=== PATIENT | male | born 1945 | race Caucasian/White ===

== ENCOUNTER 2016-10-15 04:39 | Inpatient (IN) ==
[2016-10-15] MEDS ORDERED: *HR* Atropine Sulfate 1 MG/10 ML SYRINGE IVP ONE (05:12)
[2016-10-15 05:22] LABS: Basophils % 0.5 %; Eosinophils # 0.2 K/mcL (0.0-0.6); Eosinophils % 1.9 %; Hematocrit 41.4 % (37.5-50.1); Hemoglobin 14.3 g/dL (12.9-16.9); Immature Granulocytes % 0.5 % (0-4); Lymphocytes # 1.4 K/mcL (0.6-4.6); Mean Corpuscular HGB Conc 34.5 g/dL (31.6-35.5); Mean Corpuscular Hemoglobin 30.8 pg (28.0-33.3); Mean Corpuscular Volume 89.2 fL (83.0-100.0); Mean Platelet Volume 9.8 fL (9.4-12.4); Monocytes # 0.7 K/mcL (0.0-1.3); Monocytes % 9.1 %; Neutrophils # 5.6 K/mcL (1.6-8.9); Platelet Count 211 K/mcL (140-400); Red Blood Count 4.64 M/mcL (4.19-5.50); Red Cell Distribution Width 11.9 % (11.5-14.5)
[2016-10-15 05:27] LABS: INR 1.1; Prothrombin Time 11.9 Seconds (9.4-12.1)
[2016-10-15 05:30] LABS: Activated Partial Thrombo Time 31.6 Seconds (26.0-36.0)
--- NOTE | 2016-10-15 05:33 | Emergency Department Note ---
Disposition Clinical Impression: Bradycardia, Lightheadedness, Palpitations Disposition: Admitted As Inpatient Condition: Critical Referrals: Troy Gracia Jr, MD [Primary Care Provider] - Forms: ED Satisfaction Letter Time of Disposition: 06:31 Dizziness HPI - General Chief Complaint: ED Syncope Stated Complaint: syncope/hypotension/bradycardia/heart skipping Time Seen by Provider: 10/15/16 05:12 Source: patient Mode of arrival: wheelchair Limitations: no limitations Nursing Notes Reviewed: Yes Vital Signs Reviewed: Yes - History of Present Illness HPI Narrative: Mr. Maldonado, 70-year-old male, presents from home via POV with chief complaint of dizziness and lightheadedness. Patient notes his been ongoing for approximately the past month. Associated with mild substernal chest pressure and palpitations. Patient's at bedside notes that he fell 3 weeks ago. Patient states his symptoms occur randomly; both at rest and with activity. He becomes fatigued and lightheaded with light exertion. PMH: Hypertension, hyperlipidemia, CAD with ACS-2 stents placed in 2008. ROS: Positive: Dizziness, weakness, chest pain, palpitations Negative: Fever, chills, nausea, vomiting, back pains, abdominal pains, dyspnea , diaphoresis, confusion - Related Data Allergies Allergy/AdvReac Type Severity Reaction Status Date / Time Diclofenac [From Voltaren] AdvReac Abdominal Verified 10/15/16 04:43 Pain All systems ED: reviewed and negative except as stated. Past Medical History - Past Medical History Medical history: Reports: coronary artery disease, hypertension Surgical history: Reports: herniorrhaphy Psychiatric history: Reports: no psych history - Social History Smoking Status: Former smoker Smokeless Tobacco Status: No Alcohol use: Reports: occasionally Drug use: Reports: none Physical Exam Vital Signs Reviewed General: Patient is alert, oriented, and in no acute distress. HEENT: No facial asymmetry. Head is normocephalic and atraumatic. PERRLA. Trachea midline. Cardiovascular: Heart regular rate and rhythm without clicks, rubs. Split S2. Grade 2/6 systolic murmur. No JVD. PMI nondisplaced. No pedal edema. Respiratory: Symmetric chest rise with good respiratory effort. Bilateral breath sounds are clear without wheezing, crackles, or rhonchi. Abdomen: Bowel sounds present normoactive x-4 quadrants. Abdomen is soft, nondistended, and nontender. Psych: Patient's affect is appropriate for situation. - General Limitations: no limitations General appearance: alert Course Course Narrative: Immediate clinical concern is for symptomatic bradycardia. Patient's heart rate is varying from the 30s to the 70s. Pacing pads placed and atropine placed at bedside. Patient is symptomatic with lightheadedness but his heart rate becomes bradycardic. He has not been syncopal during his stay in the ER. Patient's lab work has returned unremarkable. Specifically normal electrolytes , negative troponin. Chest x-ray is unremarkable. EKG is concerning for left bundle branch block however this is appropriately discordant and unchanged from previous EKG. Spoke with Dr. Kee who advised hold metoprolol, admit to hospitalist, re- evaluate, and re-consult cardiology if needed. Spoke with Dr. Prescott, the admitting hospitalist, who agrees to accept the patient. Vital Signs Temperature 97.6 F 10/15/16 04:43 Pulse Rate 57 10/15/16 04:43 Respiratory Rate 20 10/15/16 04:43 Blood Pressure 166/78 10/15/16 04:43 O2 Sat by Pulse Oximetry 98 10/15/16 04:43 Temperature 97.6 F 10/15/16 04:43 Pulse Rate 59 10/15/16 05:54 Respiratory Rate 16 10/15/16 05:54 Blood Pressure 151/89 10/15/16 05:54 O2 Sat by Pulse Oximetry 96 10/15/16 05:54 Oxygen Delivery Oxygen Delivery Nasal Cannula Dizziness - Medical Records Medical records reviewed: Yes I reviewed the patient's medical records. - Lab Data Lab results reviewed: Yes I reviewed the patient's lab results. Result diagrams: 10/15/16 05:10 10/15/16 05:10 Lab Results 10/15/16 10/15/16 10/15/16 Range/Units 05:10 05:10 05:10 WBC 8.0 (4.3-11.1) K/mcL RBC 4.64 (4.19-5.50) M/mcL Hgb 14.3 (12.9-16.9) g/dL Hct 41.4 (37.5-50.1) % MCV 89.2 (83.0-100.0) fL MCH 30.8 (28.0-33.3) pg MCHC 34.5 (31.6-35.5) g/dL RDW 11.9 (11.5-14.5) % Plt Count 211 (140-400) K/mcL MPV 9.8 (9.4-12.4) fL Immature Gran % 0.5 (0-4) % Seg Neutrophils % 70.0 % Lymphocytes % 18.0 % Monocytes % 9.1 % Eosinophils % 1.9 % Basophils % 0.5 % Neutrophils # 5.6 (1.6-8.9) K/mcL Lymphocytes # 1.4 (0.6-4.6) K/mcL Monocytes # 0.7 (0.0-1.3) K/mcL Eosinophils # 0.2 (0.0-0.6) K/mcL Basophils # 0.0 (0.0-0.2) K/mcL PT 11.9 (9.4-12.1) Seconds INR 1.1 APTT 31.6 (26.0-36.0) Seconds Sodium 135 L (136-145) mEq/L Potassium 4.2 (3.5-4.5) mEq/L Chloride 99 (98-109) mEq/L Carbon Dioxide 27 (19-29) mEq/L BUN 17 (8-26) mg/dL Creatinine 1.06 (0.72-1.25) mg/dL Est GFR ( Amer) > 60 (> 60) Est GFR (Non-Af Amer) > 60 (> 60) BUN/Creatinine Ratio 16 (6-26) Glucose 142 H (70-99) mg/dL Calculated Osmolality 284 (280-300) Calcium 9.8 (8.6-10.8) mg/dL Total Bilirubin 0.8 (0.2-1.2) mg/dL AST 29 (5-34) Units/L ALT 32 (0-55) Units/L Alkaline Phosphatase 79 (38-126) Units/L Troponin I (0-0.03) ng/mL Serum Total Protein 7.6 (6.0-8.3) g/dL Albumin 4.1 (3.5-5.0) g/dL Globulin 3.5 (2.4-3.5) g/dL Albumin/Globulin Ratio 1.2 (1.1-2.2) Urine Color (Yellow) Urine Clarity (Clear) Urine pH (5.0-8.0) pH Units Ur Specific [place] (1.010-1.025) Urine Protein (Neg-Trace) mg/dL Urine Glucose (UA) (Normal) mg/dL Urine Ketones (Negative) mg/dL Urine Blood (Negative) Urine Nitrite (Negative) Urine Bilirubin (Negative) Urine Urobilinogen (Normal) mg/dL Ur Leukocyte Esterase (Negative) 10/15/16 10/15/16 Range/Units 05:10 06:11 WBC (4.3-11.1) K/mcL RBC (4.19-5.50) M/mcL Hgb (12.9-16.9) g/dL Hct (37.5-50.1) % MCV (83.0-100.0) fL MCH (28.0-33.3) pg MCHC (31.6-35.5) g/dL RDW (11.5-14.5) % Plt Count (140-400) K/mcL MPV (9.4-12.4) fL Immature Gran % (0-4) % Seg Neutrophils % % Lymphocytes % % Monocytes % % Eosinophils % % Basophils % % Neutrophils # (1.6-8.9) K/mcL Lymphocytes # (0.6-4.6) K/mcL Monocytes # (0.0-1.3) K/mcL Eosinophils # (0.0-0.6) K/mcL Basophils # (0.0-0.2) K/mcL PT (9.4-12.1) Seconds INR APTT (26.0-36.0) Seconds Sodium (136-145) mEq/L Potassium (3.5-4.5) mEq/L Chloride (98-109) mEq/L Carbon Dioxide (19-29) mEq/L BUN (8-26) mg/dL Creatinine (0.72-1.25) mg/dL Est GFR ( Amer) (> 60) Est GFR (Non-Af Amer) (> 60) BUN/Creatinine Ratio (6-26) Glucose (70-99) mg/dL Calculated Osmolality (280-300) Calcium (8.6-10.8) mg/dL Total Bilirubin (0.2-1.2) mg/dL AST (5-34) Units/L ALT (0-55) Units/L Alkaline Phosphatase (38-126) Units/L Troponin I 0.00 (0-0.03) ng/mL Serum Total Protein (6.0-8.3) g/dL Albumin (3.5-5.0) g/dL Globulin (2.4-3.5) g/dL Albumin/Globulin Ratio (1.1-2.2) Urine Color Yellow (Yellow) Urine Clarity Clear (Clear) Urine pH 7.0 (5.0-8.0) pH Units Ur Specific [place] 1.012 (1.010-1.025) Urine Protein Negative (Neg-Trace) mg/dL Urine Glucose (UA) Normal (Normal) mg/dL Urine Ketones Negative (Negative) mg/dL Urine Blood Negative (Negative) Urine Nitrite Negative (Negative) Urine Bilirubin Negative (Negative) Urine Urobilinogen Normal (Normal) mg/dL Ur Leukocyte Esterase Negative (Negative) - Radiology Data Radiology results reviewed: Yes I reviewed the patient's radiology results. Chest X-Ray 10/15/16 05:01 IMPRESSION: No acute cardiopulmonary disease. D/ / Jules Arora MD / Jules Arora MD Interpreting Provider: Jules Arora MD - EKG Data EKG attestation: Yes I reviewed and interpreted this EKG. EKG results narrative: EKG dated 15 October 2016 at 04:55 shows sinus bradycardia with a rate of 54. First-degree AV block with [place] 228. QRS 88, QT/QTc 513/498. Left bundle branch block which is appropriately discordant and without ST elevations. Unchanged from comparison EKG dated 04/01/2014. Attestation Statement - Attestation Attestation: I personally interviewed and examined this patient and my medical decision- making was reviewed with the ED Resident Physician, Dr. Walters. I agree with the documented findings, disposition and treatment plan as described except to the extent set forth below. Patient is a pleasant 70-year-old white male with a history of near-syncope and lightheadedness. Patient states that he has been having episodes intermittently for the past week and had a syncopal episode a week ago where he fell and was evaluated following this episode by mid-level provider and his family practice doctor's office. Patient states intermittently he has been feeling his heart slowed down and he becomes very lightheaded and weak and if this occurs while he is standing he feels like he may pass out again although he has had no recurrent episodes of syncope. Patient denies any chest pain pressure or heaviness with these symptoms no diaphoresis no shortness of breath no abdominal pain or flank pain. I agree with patient's physical exam is documented. Patient's EKG shows a known left bundle-branch block unchanged from prior EKGs at a bradycardic rate in the 50s. On evaluation patient on the monitor was having intermittent episodes of bradycardia with heart rate in the 30s, during these episodes he becomes very symptomatic with lightheadedness and increased pallor. His heart rate would spontaneously return to the 70s and patient would noticeably feel better during these episodes. His bradycardia has not been sustained while he has been in the ED. He has had a stable blood pressure throughout. We have obtained lab evaluation and chest x-ray on the patient will continue monitoring him. Atropine is at the bedside if needed, patient was placed on pacer pads. Our plan is to admit the patient and speak with cardiology for symptomatic bradycardia and near syncope.
[2016-10-15 05:37] LABS: Alanine Aminotransferase 32 Units/L (0-55); Albumin 4.1 g/dL (3.5-5.0); Albumin/Globulin Ratio 1.2 (1.1-2.2); Alkaline Phosphatase 79 Units/L (38-126); Aspartate Amino Transferase 29 Units/L (5-34); BUN/Creatinine Ratio 16 (6-26); Bilirubin,Total 0.8 mg/dL (0.2-1.2); Blood Urea Nitrogen 17 mg/dL (8-26); Calcium 9.8 mg/dL (8.6-10.8); Carbon Dioxide 27 mEq/L (19-29); Chloride 99 mEq/L (98-109); Globulin 3.5 g/dL (2.4-3.5); Glucose 142 mg/dL (70-99); Osmolality,Calculated 284 (280-300); Potassium 4.2 mEq/L (3.5-4.5); Sodium 135 mEq/L (136-145); Total Protein 7.6 g/dL (6.0-8.3); eGFR For African Americans > 60 (> 60); eGFR For Non-African Americans > 60 (> 60)
[2016-10-15 06:30] LABS: Bilirubin,Urine Negative (Negative); Blood,Urine Negative (Negative); Clarity,Urine Clear (Clear); Color,Urine Yellow (Yellow); Glucose,Urine (UA) Normal (Normal); Ketones,Urine Negative (Negative); Leukocyte Esterase,Urine Negative (Negative); Nitrite,Urine Negative (Negative); Protein,Urine Negative (Neg-Trace); Specific Gravity,Urine 1.012 (1.010-1.025); Urobilinogen,Urine Normal (Normal)
[2016-10-15] MEDS ORDERED: Naloxone 0.4 MG/ML INJ IVP PRN (12:46)
--- NOTE | 2016-10-15 15:18 | Internal Med History&Physical ---
<Darrell Munoz Rashad - Last Filed: 10/15/16 17:53> Date of Encounter: 10/15/16 Time of Encounter: 11:30 Assessment and Plan (1) Lightheadedness Current visit: Yes Status: Acute Assess: Mr. Maldonado presents with chief complaint of dizziness, lightheadedness, and presyncope. Patient reports this has been going on for approximately the past month. Patient also reports approximately 3 weeks ago he passed out completely at home. Mr. Maldonado reports presyncope is accompanied with mild substernal chest pressure and palpitations and occurs randomly at rest and with exertion. Mr. Maldonado states he got up at 3:30 a.m. to use the restroom and when he got back to bed he felt faint. Plan: EV echocardiogram ordered Bilateral carotid Doppler duplex ordered Orthostatic BP and vital signs ordered Continuous cardiac telemetry ordered Continuous SPO2 monitoring ordered Hold Valsartan Hold Amlodipine Hold Lopressor Hold Sildenafil Continue Norvasc Monitor patient and vital signs [place] cautions/bedrest with bathroom privileges/qfcdl-uhvw-buiigr only status to to lightheadedness and presyncopal episodes (2) Bradycardia Current visit: Yes Status: Acute Assess: Patient presents with complaint of palpitations, SOB, and mild substernal chest pressure related to presyncopal episodes. Plan: EV echocardiogram ordered Repeat EKG Continuous cardiac telemetry ordered Continuous SPO2 monitoring ordered Hold Valsartan Hold Amlodipine Hold Lopressor Hold Sildenafil Continue Norvasc Monitor patient and vital signs [place] cautions/bedrest with bathroom privileges/zxgog-adtg-qnoxxn only status to to lightheadedness and presyncopal episodes (3) Palpitations Current visit: Yes Status: Acute Assess: Patient reports having heart palpitations at rest and with exertion as well as fluctuations in BP and pre-syncope/syncope associated with these syptoms. Plan: EV echocardiogram ordered Continuous cardiac telemetry ordered Repeat EKG Continuous SPO2 monitoring ordered Hold Valsartan Hold Amlodipine Hold Lopressor Hold Sildenafil Continue Norvasc Monitor patient and vital signs Falls cautions/bedrest with bathroom privileges/rjheo-pafe-tcuxqf only status to to lightheadedness and presyncopal episodes (4) Falls Current visit: Yes Status: Acute Assess: Patient reports history of repeated falls related to presyncope and syncopal episodes. Plan: SW consult placed to assess for assistive walking devices and home needs PT consult ordered OT consult ordered [place] cautions/bedrest with bathroom privileges/gmyum-gnna-wqxcbt only status to to lightheadedness and presyncopal episodes Qualifiers: Encounter type: initial encounter Qualified Code(s): W19.XXXA - Unspecified fall, initial encounter (5) Hypertension Current visit: Yes Status: Chronic Assess: Patient presents with history of chronic hypertension. Plan: Hold Lopressor, Valsartan, and amlodipine due to orthostatic hypotension Continue Norvasc Hold Seldenafil Monitor patient and vital signs Qualifiers: Hypertension type: essential hypertension Qualified Code(s): I10 - Essential (primary) hypertension (6) CAD (coronary artery disease) Current visit: Yes Status: Chronic Assess: Patient presents with history of chronic coronary artery disease. Patient had placement of 2 stents in 2008. Plan: Continue aspirin therapy Continue Norvasc Lipid panel ordered Cardiac diet ordered Qualifiers: Coronary Disease-Associated Artery/Lesion type: unspecified vessel or lesion type [place] vs. transplanted heart: iro[place]ois heart Associated angina: angina presence unspecified Qualified Code(s): I25.10 - Atherosclerotic heart disease of [place] coronary artery without angina pectoris (7) DVT prophylaxis Current visit: Yes Status: Acute Assess: Patient received DVT prophylaxis to inpatient protocol and bedrest status. Plan: Heparin 5,000 units SQ Q8 ordered Internal Medicine - H&P: HPI Chief complaint: Pre-syncope/dizziness Admitted From: Emergency Dept Plans for Post Hospital Care: Home History of present illness: Mr. Maldonado is a 70 year old male who presents from the ED with chief complaint of dizziness, lightheadedness, and presyncope. Patient reports to smoking going on for approximately the past month. Patient also reports approximately 3 weeks ago he passed out completely at home. Mr. Maldonado reports presyncope is accompanied with mild substernal chest pressure and palpitations and occurs randomly at rest and with exertion. Mr. Maldonado states he got up at 3:30 a.m. to use the restroom and when he got back to bed he felt faint. Patient is currently on valsartan, amlodipine, Lopressor, and Viagra. Mr. Maldonado is a history of chronic hypertension, hyperlipidemia, and coronary artery disease with ACS (2 stents placed in 2008). Patient also reports urinary frequency and urgency.Patient denies fever, chills, nausea, vomiting, back pain, abdominal pain, dyspnea, diaphoresis, confusion, pedal edema. Patient is to be admitted as observation status disorders for EV echocardiogram, bilateral carotid Doppler duplex, orthostatic vital signs and BPs, continuous cardiac telemetry, and continuous SPO2 monitoring. Patient is falls precautions/bedrest with bathroom privileges/up with assist only to recurrent dizziness and presyncopal episodes. Patient to be monitored carefully. Past Med Surg Social Fam HX - Past Medical History Medical history: coronary artery disease, hypertension, myocardial infarction Psychiatric history: no psych history - Past Surgical History Surgical History: herniorrhaphy, other (Placement of two stents in 2008) - Social History Smoking Status: Former smoker Packs per day: 1/2 PPD - quit 40+ years ago Smokeless Tobacco Status: No Alcohol use: occasionally Drug use: none Occupational status: retired Current living situation: Home, With Family Activity Level: Independent ambulation Recent Out of Country Travel Within the Last 8 Weeks: No Exposure or Possible Exposure to Illness During Travel: No - Family History Mother Race: Family Member Ethnicity: Non- Living Status: Age at : 93 Cause of : Breast cancer Hx Family Cardiac Disorders: Yes (CHF) Hx Family Cancer: Yes (Breast) Father Race: Family Member Ethnicity: Non- Living Status: Age at : 73 Cause of : CHF Hx Family Cardiac Disorders: Yes (CHF) Brother Race: Family Member Ethnicity: Non- Living Status: Still Living Hx Family Medical Disorders: No Sister Race: Family Member Ethnicity: Non- Living Status: Still Living Hx Family Medical Disorders: No Internal Medicine - H&P: Meds Aspirin 81 mg PO DAILY 10/15/16 [History] Cyanocobalamin (Vitamin B-12) [Vitamin B-12] 1,000 mcg SL DAILY 10/15/16 [ History] Flaxseed Oil [[place]-3 Flaxseed Oil] 1,000 mg PO DAILY 10/15/16 [History] Glucosamine HCl/Chondr Telles A Na [[facility] Glucosamine-Chondr Tablet] 1 each PO DAILY 10/15/16 [History] LORazepam [Ativan] 1 mg PO HS PRN 10/15/16 [History] Metoprolol [Lopressor] 25 mg PO BID 10/15/16 [History] Mv-Mn/FA/Vit K/Lycop/Lut/Coq10 [Daily Multivitamin Capsule] 1 each PO DAILY 10/26 [History] [place]-3/Dha/Epa/Fish Oil [Fish Oil 1,000 mg Softgel] 1 each PO DAILY 10/15/16 [ History] Potassium 99 mg PO DAILY 10/15/16 [History] Rosuvastatin Calcium [Crestor] 10 mg PO HS 10/15/16 [History] Sildenafil Citrate [Revatio] 20 mg PO DAILY 10/15/16 [History] Valsartan/Hydrochlorothiazide [Diovan Hct 320-12.5 mg Tab] 1 each PO DAILY 10/15 [History] Vitamin E 200 unit PO DAILY 10/15/16 [History] amLODIPine [Norvasc] 5 mg PO DAILY 10/15/16 [History] Allergies Diclofenac [From Voltaren] Adverse Reaction (Verified 10/15/16 10:55) Abdominal Pain All Systems PM: A 10-system review of systems was performed and is negative for pertinent findings except as documented above in the HPI. - Constitutional Constitutional: as per HPI, falls, no chills, no fever(s), no night sweats - EENT Eyes: no change in vision, no discharge, no pain, no photophobia Ears: no ear discharge, no ear pain, no tinnitus Nose, mouth and throat: no dysphagia, no nasal discharge, no neck pain, no sore throat - Breasts Breasts: as per HPI - Cardiovascular Cardiovascular ROS IM: as per HPI, chest pain (Occasional mid-sternal with palpitations), dyspnea, lightheadedness, palpitations, no diaphoresis, no syncope - Respiratory Respiratory: no cough, no dyspnea, no wheezing, no excessive phlegm production - Gastrointestinal Gastrointestinal: no abdominal pain, no diarrhea, no hematemesis, no hematochezia, no melena, no nausea, no vomiting - Genitourinary Genitourinary ROS male: as per HPI, urinary frequency, urinary urgency - Musculoskeletal Musculoskeletal ROS IM: no numbness, no tingling - Integumentary Integumentary IM: no rash, no unusual bruising - Neurological Neurological ROS: no confusion, no convulsions, no focal weakness, no numbness, no tingling, no tremor(s) - Psychiatric Psychiatric: as per HPI - Endocrine Endocrine IM: as per HPI - Hematologic/Lymphatic Hematologic/Lymphatic: no easy bruising - Allergic/Immunologic Allergic/Immunologic: as per HPI - Constitutional Vitals: Temp Pulse Resp BP Pulse Ox 97.6 F 57 16 156/91 97 10/15/16 04:43 10/15/16 07:59 10/15/16 07:56 10/15/16 07:56 10/15/16 07:56 General appearance: Present: cooperative, A&O X 3, pleasant, no acute distress, obese, answers questions appropriately - Head Head exam: Present: atraumatic, normocephalic - Eye Eye exam: Present: PERRL, conjuntiva pink, sclera anicteric Pupils: Present: PERRL - ENT ENT exam: Present: normal exam, normal external ear exam - Neck Neck exam general surgery: Present: supple, trachea midline. Absent: lymphadenopathy - Respiratory Respiratory exam: Present: CTAB. Absent: accessory muscle use, rales, rhonchi, wheezes - Cardiovascular Cardiovascular exam: Present: RRR, +S1, +S2. Absent: diastolic murmur, gallop, rubs, systolic murmur - GI/Abdominal GI/Abdominal exam: Present: normal bowel sounds, soft, no peritoneal signs. Absent: distended, tenderness - Rectal Rectal exam: Present: deferred - Additional comments: exam deferred. - Extremities Exam Extremities exam: Present: warm, radial pulses palpable and symetrical. Absent : calf tenderness, cyanotic, pedal edema - Back Exam Back exam: Present: normal inspection - Neurological Exam Neurological exam: Present: CN II-XII intact, oriented X3, no focal deficits. Absent: pronater drift, facial droop, speech deficit - Psychiatric Psychiatric exam: Present: normal affect, normal mood - Skin Skin exam: Present: dry, intact Internal Med - H&P Results - Labs CBC & Chem 7: 10/15/16 05:10 10/15/16 05:10 Labs: Cardiac Enzymes 10/15/16 Range/Units 13:43 Troponin I 0.00 (0-0.03) ng/mL - EKG Data EKG shows normal: sinus rhythm Rate: bradycardia - EKG Data Prior EKG available for review: no EKG comments: 10/15/16 15:29 EKG dated 10/15/16 shows sinus bradycardia with first-degree AV block, left bundle branch block. - Diagnostic Studies Chest x-ray Additional comments: Impressions Chest X-Ray 10/15/16 05:01 IMPRESSION: No acute cardiopulmonary disease. D/ / 10/15/2016 08:39:48 Jules Arora MD / demetrice Interpreting Provider: Jules Arora MD <Carmen Gaffney - Last Filed: 10/16/16 07:15> Date of Encounter: 10/16/16 Internal Medicine - H&P: HPI History of present illness: Mr. Maldonado is a 70 year old male All Systems PM: A 10-system review of systems was performed and is negative for pertinent findings except as documented above in the HPI. - Constitutional Vitals: Temp Pulse Resp BP Pulse Ox 98.2 F 61 16 143/72 98 10/16/16 04:33 10/16/16 05:15 10/16/16 04:33 10/16/16 05:49 10/16/16 04:33 Internal Med - H&P Results - Labs CBC & Chem 7: 10/16/16 04:11 10/16/16 04:11 Labs: Short CBC 10/16/16 Range/Units 04:11 WBC 8.0 (4.3-11.1) K/mcL Hgb 13.9 (12.9-16.9) g/dL Hct 39.8 (37.5-50.1) % Plt Count 192 (140-400) K/mcL Neutrophils # 5.0 (1.6-8.9) K/mcL BMP 10/16/16 04:11 Sodium 134 L Potassium 3.9 Chloride 101 Carbon Dioxide 27 BUN 12 Creatinine 0.84 Glucose 108 H Calcium 9.1 Cardiac Enzymes 10/15/16 10/15/16 Range/Units 13:43 18:40 Troponin I 0.00 0.00 (0-0.03) ng/mL Liver Function 10/16/16 Range/Units 04:11 Total Bilirubin 0.7 (0.2-1.2) mg/dL AST 23 (5-34) Units/L ALT 28 (0-55) Units/L Alkaline Phosphatase 74 (38-126) Units/L Albumin 3.7 (3.5-5.0) g/dL - Attending Attestation This is a late entry for a patient I examined and reviewed laboratory, imaging and all diagnostic data on 10/15/16. My medical decision-making was reviewed with Darrell Munoz - CORNELL. I agreed with the documented findings, disposition and treatment plan as described above. Mr Maldonado is a 70 year old male with past medical history of HTN, and CAD who presents with a pre-syncope episode at home. He reports a syncopal episode 3 weeks ago. In the ED, patient had a HR of 36 and BP 166/78. He takes lopressor and sildenafil. During my examination, patient was asymptomatic, chest CTAB, heart regular rate. CXR was negative. EKG reviewed by me and shows sinus bradycardia Hr 54. A/P: 1. Symptomatic bradycardia. check echocardiogram, serial troponins, doppler of carotids was negative, telemetry. hold metoprolol. 2. HTN. continue amlodipine. hold valsartan. Patient follows with dr Russell, consider consult or outpatient follow up.
[2016-10-15] MEDS ORDERED: Aspirin 81 MG TAB.CHEW ONE (17:05)
[2016-10-15] MEDS: amLODIPine 5 MG TABLET PO SCH (17:43)
[2016-10-15] MEDS: *HR* Heparin 5,000 UNIT/ML VIAL SQ SCH (21:42)
--- NOTE | 2016-10-16 00:07 | Electrocardiograph Report ---
[address] [address] Test Date: 2016-10-15 Pat Name: Franck Maldonado Department: 104 Room: 2N13 Gender: M Admitting Office Escort: SANCHEZ : 1945 Requested By: Natasha Bautista Order Number: [id number] Reading MD: Amber Russell Measurements Intervals [place] Rate: 54 P: 4 [place]: 228 QRS: -8 QRSD: 188 T: 75 QT: 513 QTc: 498 Interpretive Statements SINUS BRADYCARDIA WITH FIRST DEGREE AV BLOCK LEFT BUNDLE BRANCH BLOCK Electronically Signed On 10-16-2016 0:05:39 EDT by Amber Russell
[2016-10-16 05:29] LABS: Basophils % 0.5 %; Eosinophils # 0.1 K/mcL (0.0-0.6); Eosinophils % 1.6 %; Hematocrit 39.8 % (37.5-50.1); Hemoglobin 13.9 g/dL (12.9-16.9); Immature Granulocytes % 0.4 % (0-4); Lymphocytes % 24.6 %; Mean Corpuscular HGB Conc 34.9 g/dL (31.6-35.5); Mean Corpuscular Hemoglobin 31.4 pg (28.0-33.3); Mean Platelet Volume 10.7 fL (9.4-12.4); Monocytes # 0.9 K/mcL (0.0-1.3); Monocytes % 10.9 %; Platelet Count 192 K/mcL (140-400); Red Blood Count 4.42 M/mcL (4.19-5.50); Red Cell Distribution Width 11.9 % (11.5-14.5)
[2016-10-16] MEDS: *HR* Heparin 5,000 UNIT/ML VIAL SQ SCH ×3 (05:35→20:53)
[2016-10-16 05:43] LABS: Alanine Aminotransferase 28 Units/L (0-55); Albumin 3.7 g/dL (3.5-5.0); Albumin/Globulin Ratio 1.2 (1.1-2.2); Alkaline Phosphatase 74 Units/L (38-126); Aspartate Amino Transferase 23 Units/L (5-34); BUN/Creatinine Ratio 14 (6-26); Bilirubin,Total 0.7 mg/dL (0.2-1.2); Blood Urea Nitrogen 12 mg/dL (8-26); Calcium 9.1 mg/dL (8.6-10.8); Carbon Dioxide 27 mEq/L (19-29); Chloride 101 mEq/L (98-109); Chol/HDL Ratio 3.3 (0-4.9); Cholesterol 144 mg/dL (< 200); Globulin 3.1 g/dL (2.4-3.5); Glucose 108 mg/dL (70-99); HDL Cholesterol 44 mg/dL (40-59); LDL Cholesterol,Calculated 70 mg/dL (0-99); Magnesium 1.7 mg/dL (1.6-2.6); Osmolality,Calculated 278 (280-300); Potassium 3.9 mEq/L (3.5-4.5); Sodium 134 mEq/L (136-145); Total Protein 6.8 g/dL (6.0-8.3); Triglycerides 152 mg/dL (< 150); eGFR For African Americans > 60 (> 60); eGFR For Non-African Americans > 60 (> 60)
[2016-10-16] MEDS: Aspirin 81 MG TAB.CHEW PO SCH (07:37)
[2016-10-16] MEDS: amLODIPine 5 MG TABLET PO SCH (07:37)
--- NOTE | 2016-10-16 12:43 | Cardiology Consult Note ---
Date of Encounter: 10/16/16 Time of Encounter: 12:43 Assessment and Plan (1) Mobitz type 2 second degree AV block Current Visit: Yes Status: Acute Pt presented with dizziness, lightheadedness, presyncope and episode of syncope 3 weeks ago. HR reported to be 30s in ED, lowest HR on tele is 40s. Was on Lopressor 25mg BID at home, currently on hold. 24 hour tele AVG HR 61. HR 70s at bedside--Continue to hold. Intermittent Mobitz type II heart block noted on telemetry. Echo EF 55%. Hx of PCI in 2008 to RCA and LCx. Negative stress in 2013. Pt reports for the past month chest pain that is mostly exertional, similar to prior anginal equivalent. Discussed with Dr. Kee, plan for LHC in AM. If no explainable cause on LHC, then PPM will likely be warranted due to the intermittent Mobitz type II. (2) Symptomatic bradycardia Current Visit: Yes Status: Acute As above. Avoiding AV garland blockers. (3) Chest pain Current Visit: Yes Status: Acute Chest pain intermittently over the past month--mostly occurs with exertion, relieved with rest, but occasionally occurs during sleep. Reports worsening dyspnea. Symptoms similar to prior anginal equivalent, but could also be due to symptomatic bradycardia. Troponins negative x 3. LBBB on EKG--known previously, not new. Given in setting of intermittent Mobitz type II, symptomatic bradycardia and symptoms similar to prior anginal equivalent, recommend LHC in AM. R/B/A discussed. Qualifiers: Chest pain type: unspecified Qualified Code(s): R07.9 - Chest pain, unspecified (4) CAD (coronary artery disease) Current Visit: Yes Status: Chronic Hx of PCI to RCA and LCx in 2008 at outside facility. ASA, Statin. No BB due to bradycardia and Mobitz type II heart block. Qualifiers: Coronary Disease-Associated Artery/Lesion type: unspecified vessel or lesion type [place] vs. transplanted heart: [place] heart Associated angina: angina presence unspecified Qualified Code(s): I25.10 - Atherosclerotic heart disease of [place] coronary artery without angina pectoris Discussion w patient/family: The assessment and plan as outlined above was discussed with the patient and/or family members who expressed understanding and agreement. All questions were answered. Thank you for involving us in the care of your patient. Please call with any questions. I will discuss all the above with Dr. Kee and make changes as necessary. History of Present Illness Consult date: 10/16/16 Requesting physician: Carmen Gaffney Consult reason: Presyncope, syncope Chief complaint: presyncope, syncope History of present illness: Mr. Maldonado is a 70 year old male with PMH of CAD s/p PCI to RCA and LCx in 2008, HTN, HLD, known LBBB that presented to ED with chief complaint of dizziness, lightheadedness, and presyncope. Patient reports symptoms started approximately 1 month ago. He had a syncopal event 3 weeks ago when going from sitting to standing position. He reports mostly exertional chest pain over the past month, described as midsternal and dull with occasional radiation to right arm, subsides with rest. He reports chest pain occasionally through the night as well. He has noticed increased dyspnea. Symptoms are similar to prior anginal equivalent. Troponins negative x 3. HR reportedly noted to be 30s in ED, lowest HR on tele is 40s, currently 70s at bedside. Was on Lopressor, Norvasc, and Diovan at home, all which have been discontinued on admission. Orthostatic blood pressures negative. HR decreased to 40s upon standing. 24 hour tele AVG HR 61, longest pause 2.2 seconds. Echo obtained during stay shows EF 55%, moderate concentric LVH, mild diastolic dysfunction, dilated RV with normal function, mild MR, mild TR, mild-moderate CA , no pulmonary hypertension noted. Stress test 04/08/14 negative for ischemia or infarct. Past Med Surg Social Fam HX - Past Medical History Medical history: coronary artery disease, hypertension, myocardial infarction Psychiatric history: no psych history - Past Surgical History Surgical History: angioplasty/stent, herniorrhaphy, other (Placement of two stents in 2008) - Social History Smoking Status: Former smoker Packs per day: 1/2 PPD - quit 40+ years ago Smokeless Tobacco Status: No Alcohol use: occasionally Drug use: none - Family History Mother Race: Family Member Ethnicity: Non- Living Status: Age at : 93 Cause of : Breast cancer Hx Family Cardiac Disorders: Yes (CHF) Hx Family Cancer: Yes (Breast) Father Race: Family Member Ethnicity: Non- Living Status: Age at : 73 Cause of : CHF Hx Family Cardiac Disorders: Yes (CHF) Brother Race: Family Member Ethnicity: Non- Living Status: Still Living Hx Family Medical Disorders: No Sister Race: Family Member Ethnicity: Non- Living Status: Still Living Hx Family Medical Disorders: No Medications and Allergies Aspirin 81 mg PO DAILY 10/15/16 [History] Cyanocobalamin (Vitamin B-12) [Vitamin B-12] 1,000 mcg SL DAILY 10/15/16 [ History] Flaxseed Oil [[place]-3 Flaxseed Oil] 1,000 mg PO DAILY 10/15/16 [History] Glucosamine HCl/Chondr Telles A Na [Cvs Glucosamine-Chondr Tablet] 1 each PO DAILY 10/15/16 [History] LORazepam [Ativan] 1 mg PO HS PRN 10/15/16 [History] Metoprolol [Lopressor] 25 mg PO BID 10/15/16 [History] Mv-Mn/FA/Vit K/Lycop/Lut/Coq10 [Daily Multivitamin Capsule] 1 each PO DAILY 10/26 [History] [place]-3/Dha/Epa/Fish Oil [Fish Oil 1,000 mg Softgel] 1 each PO DAILY 10/15/16 [ History] Potassium 99 mg PO DAILY 10/15/16 [History] Rosuvastatin Calcium [Crestor] 10 mg PO HS 10/15/16 [History] Sildenafil Citrate [Revatio] 20 mg PO DAILY 10/15/16 [History] Valsartan/Hydrochlorothiazide [Diovan Hct 320-12.5 mg Tab] 1 each PO DAILY 10/15 [History] Vitamin E 200 unit PO DAILY 10/15/16 [History] amLODIPine [Norvasc] 5 mg PO DAILY 10/15/16 [History] Allergies Diclofenac [From Voltaren] Adverse Reaction (Verified 10/15/16 10:55) Abdominal Pain All Systems Review: A 10-system review of systems was performed and is negative for pertinent findings except as documented above in the HPI. - Cardiovascular Cardiovascular: as per HPI, chest pain at rest, chest pain with exertion, dyspnea on exertion, lightheadedness, palpitations, syncope - Respiratory Respiratory: dyspnea - Neurological Neurological: dizziness, syncope Physical Examination Vital Signs, Last 4 Hours Pulse Resp BP Pulse Ox 10/16/16 11:15 70 14 147/82 96 10/16/16 10:57 67 Vital Signs Temp Pulse Pulse Pulse Pulse Resp BP 10/16/16 11:15 70 14 147/82 10/16/16 10:57 67 10/16/16 08:00 97.6 F 60 57 64 44 14 145/82 10/16/16 07:35 66 17 145/82 10/16/16 05:49 10/16/16 05:15 61 10/16/16 04:33 98.2 F 70 16 10/16/16 00:55 56 10/15/16 23:40 98.2 F 65 15 113/70 10/15/16 22:37 10/15/16 22:35 10/15/16 22:32 10/15/16 20:29 98.1 F 62 15 131/70 10/15/16 20:15 55 10/15/16 15:20 97.9 F 60 14 134/75 BP BP BP Pulse Ox 10/16/16 11:15 96 10/16/16 10:57 10/16/16 08:00 155/86 160/96 152/78 96 10/16/16 07:35 97 10/16/16 05:49 143/72 10/16/16 05:15 10/16/16 04:33 98 10/16/16 00:55 10/15/16 23:40 95 10/15/16 22:37 136/81 10/15/16 22:35 155/76 10/15/16 22:32 134/77 10/15/16 20:29 96 10/15/16 20:15 10/15/16 15:20 97 Intake and Output 10/15/16 10/16/16 10/16/16 23:59 07:59 15:59 Intake Total 0 / 0 480 / 480 Output Total 500 / 500 1125 / 1125 0 / 0 Balance -500 / -500 -1125 / -1125 480 / 480 Intake: Oral 0 / 0 480 / 480 Output: Urine 500 / 500 1125 / 1125 0 / 0 Other: Meal Breakfast Percent of Meal Consumed 100% Weight 93.468 kg Patient Weight 10/16/16 23:59 Weight 93.468 kg General: Conversant, No Apparent Distress HEENT: Atraumatic, Normocephaly, Mucus Membranes Moist Neck: No JVD, Normal carotid pulses Cardiac: Reg Rate and Rhythm, Normal S1 and S2, No Murmur Lungs: Normal Breath Sounds, No Wheeze, Rales, Rhonchi Neuro: Alert and responsive, No focal deficits noted Abdomen: Soft, Non-Tender Skin: No rashes noted on visualized skin Musculoskeletal: No Chest Wall Tenderness Extremities: No Clubbing, No Cyanosis, No Edema, Normal Pulses Results 10/16/16 04:11 10/16/16 04:11 Lab Results 10/15/16 10/15/16 10/16/16 13:43 18:40 04:11 WBC 8.0 Hgb 13.9 Hct 39.8 Plt Count 192 Sodium Potassium Chloride Carbon Dioxide BUN Creatinine Glucose Calcium Magnesium Total Bilirubin AST ALT Alkaline Phosphatase Troponin I 0.00 0.00 10/16/16 04:11 WBC Hgb Hct Plt Count Sodium 134 L Potassium 3.9 Chloride 101 Carbon Dioxide 27 BUN 12 Creatinine 0.84 Glucose 108 H Calcium 9.1 Magnesium 1.7 Total Bilirubin 0.7 AST 23 ALT 28 Alkaline Phosphatase 74 Troponin I Short CBC 10/16/16 Range/Units 04:11 WBC 8.0 (4.3-11.1) K/mcL Hgb 13.9 (12.9-16.9) g/dL Hct 39.8 (37.5-50.1) % Plt Count 192 (140-400) K/mcL Neutrophils # 5.0 (1.6-8.9) K/mcL BMP 10/16/16 Range/Units 04:11 Sodium 134 L (136-145) mEq/L Potassium 3.9 (3.5-4.5) mEq/L Chloride 101 (98-109) mEq/L Carbon Dioxide 27 (19-29) mEq/L BUN 12 (8-26) mg/dL Creatinine 0.84 (0.72-1.25) mg/dL Glucose 108 H (70-99) mg/dL Calcium 9.1 (8.6-10.8) mg/dL Cardiac Enzymes 10/15/16 10/15/16 Range/Units 18:40 13:43 Troponin I 0.00 0.00 (0-0.03) ng/mL Liver Function 10/16/16 Range/Units 04:11 Total Bilirubin 0.7 (0.2-1.2) mg/dL AST 23 (5-34) Units/L ALT 28 (0-55) Units/L Alkaline Phosphatase 74 (38-126) Units/L Albumin 3.7 (3.5-5.0) g/dL Impressions Chest X-Ray 10/15/16 05:01 IMPRESSION: No acute cardiopulmonary disease. D/ / 10/15/2016 08:39:48 Jules Arora MD / [facility] Interpreting Provider: Jules Arora MD Active Medications Amlodipine Besylate (Norvasc) 5 mg PO DAILY IMANI PRN Reason: Protocol Stop: 04/16/17 17:16 Last Admin: 10/16/16 07:37 Dose: 5 mg Aspirin (Aspirin) 81 mg PO DAILY IMANI Stop: 04/17/17 09:01 Last Admin: 10/16/16 07:37 Dose: 81 mg Heparin Sodium (Porcine) (Heparin) 5,000 unit SQ Q8HCO IMANI Stop: 04/16/17 22:01 Last Admin: 10/16/16 05:35 Dose: 5,000 unit Lorazepam (Ativan) 0.5 mg PO HS PRN PRN Reason: Insomnia Stop: 04/16/17 12:42 Naloxone HCl (Narcan) 0.4 mg IVP Q2MIN PRN PRN Reason: Opioid Reversal Stop: 04/16/17 12:47 Rosuvastatin Calcium (Crestor) 10 mg PO HS [facility] Stop: 04/17/17 21:01 - Imaging and Cardiology Stress Test: report reviewed Echo: report reviewed - EKG Interpretation EKG results cardiology: personally reviewed (Sinus max with 1st degree block, LBBB), left bundle branch block, other (24 hour tele AVG HR 61, SR, longest pause 2.2 seconds nocturnal) Consult Discharge Plan - Plan Referrals: Aparna Dawson [facility] [Advanced Practice Nurse] - 10/25/16 10:00 am
[2016-10-16] MEDS: Valsartan 160 MG TABLET PO SCH (15:47)
--- NOTE | 2016-10-16 16:04 | Internal Med Progress Note ---
Date of Encounter: 10/16/16 Time of Encounter: 10:30 - Assessment and plan (1) Mobitz type 2 second degree AV block Current Visit: Yes Status: Acute Assessment and plan: HR now ~ 70, improved BB on hold, cardiology following, [facility] in am (2) Symptomatic bradycardia Current Visit: Yes Status: Acute Assessment and plan: avoid AV garland blockers (3) CAD (coronary artery disease) Current Visit: Yes Status: Chronic Assessment and plan: Hx of PCI to RCA and LCx in 2008 at outside facility. ASA, Statin. No BB due to bradycardia and Mobitz type II heart block. Qualifiers: Coronary Disease-Associated Artery/Lesion type: unspecified vessel or lesion type [place] vs. transplanted heart: [place] heart Associated angina: angina presence unspecified Qualified Code(s): I25.10 - Atherosclerotic heart disease of [place] coronary artery without angina pectoris (4) Hypertension Current Visit: Yes Status: Chronic Assessment and plan: controlled, continue valsartan Qualifiers: Hypertension type: essential hypertension Qualified Code(s): I10 - Essential (primary) hypertension (5) DVT prophylaxis Current Visit: Yes Status: Acute Assessment and plan: heparin sc - Time Spent With Patient less than 15 minutes - Subjective Interval history: Patient awake and alert. Not in any distress. Feels better. Denies chest pain or shortness of breath. HR has now improved. [facility] scheduled for tmorrow. No other acute events or complaints. - Constitutional Vitals: Temp Pulse Resp BP Pulse Ox 98.2 F 72 15 143/79 97 10/16/16 15:40 10/16/16 15:40 10/16/16 15:40 10/16/16 15:40 10/16/16 15:40 General appearance: Present: cooperative, A&O X 3, pleasant, no acute distress, answers questions appropriately - Head Head exam: Present: atraumatic - Neck Neck exam general surgery: Present: supple - Respiratory Respiratory exam: Present: CTAB. Absent: rhonchi, wheezes - Cardiovascular Cardiovascular exam: Present: bradycardia, +S1, +S2 - GI/Abdominal GI/Abdominal exam: Present: soft. Absent: guarding, tenderness - Extremities Exam Extremities exam: Present: radial pulses palpable and symetrical. Absent: cyanotic, pedal edema - Neurological Exam Neurological exam: Present: alert, oriented X3, no focal deficits Internal Medicine: Result - Labs CBC & Chem 7: 10/16/16 04:11 10/16/16 04:11 Labs: Short CBC 10/16/16 Range/Units 04:11 WBC 8.0 (4.3-11.1) K/mcL Hgb 13.9 (12.9-16.9) g/dL Hct 39.8 (37.5-50.1) % Plt Count 192 (140-400) K/mcL Neutrophils # 5.0 (1.6-8.9) K/mcL BMP 10/16/16 04:11 Sodium 134 L Potassium 3.9 Chloride 101 Carbon Dioxide 27 BUN 12 Creatinine 0.84 Glucose 108 H Calcium 9.1 Cardiac Enzymes 10/15/16 Range/Units 18:40 Troponin I 0.00 (0-0.03) ng/mL Liver Function 10/16/16 Range/Units 04:11 Total Bilirubin 0.7 (0.2-1.2) mg/dL AST 23 (5-34) Units/L ALT 28 (0-55) Units/L Alkaline Phosphatase 74 (38-126) Units/L Albumin 3.7 (3.5-5.0) g/dL - ABG Interpretation ABG results: PT/INR, D-dimer PT 11.9 Seconds (9.4-12.1) 10/15/16 05:10 Consult Discharge Plan - Plan Referrals: Aparna Dawson [facility] [Advanced Practice Nurse] - 10/25/16 10:00 am
[2016-10-16] MEDS ORDERED: *HR* Heparin 5,000 UNIT/ML VIAL SQ SCH (18:00)
--- NOTE | 2016-10-16 18:41 | Carotid Imaging Report ---
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 Findings Carotid Duplex: Right: There is nonstenotic plaque in the right bifurcation. There is smooth heterogeneous plaque. There is nonstenotic plaque in the right proximal internal carotid artery. There is smooth heterogeneous plaque. Left: There is nonstenotic plaque in the left bifurcation. There is smooth heterogeneous plaque. There is nonstenotic plaque in the left proximal internal carotid artery. There is smooth heterogeneous plaque. Prior Study: No prior study available for comparison. Carotid Results Right PSV EDV Assessment Proximal CCA 112 11 Normal Mid CCA 80 13 Normal Distal CCA 62 8 Normal Bifurcation 61 12 Non Stenotic Plaque Proximal ICA 69 19 Non Stenotic Plaque Mid ICA 73 22 Normal Distal ICA 74 27 Normal ECA 131 7 Normal Vertebral Artery 42 13 Antegrade Flow Left PSV EDV Assessment Proximal CCA 88 9 Normal Mid CCA 66 14 Normal Distal CCA 81 19 Normal Bifurcation 80 18 Non Stenotic Plaque Proximal ICA 60 15 Non Stenotic Plaque Mid ICA 62 24 Normal Distal ICA 56 20 Normal ECA 93 13 Normal Vertebral Artery 49 15 Antegrade Flow Ratio's Right ICA/CCA Ratio: 0.92 ICA/CCA Values: 74/80 Left ICA/CCA Ratio: 0.93 ICA/CCA Values: 62/66 Updated by Eriberto Olson MD on 10/16/2016 6:33:53 PM electronically signed on 10/16/2016 6:34:20 PM with status of Final
[2016-10-17 01:47] LABS: Thyroid Stimulating Hormone 1.044 mcIU/mL (0.350-4.840)
[2016-10-17] MEDS: *HR* Heparin 5,000 UNIT/ML VIAL SQ SCH ×3 (05:53→21:09)
[2016-10-17] MEDS: amLODIPine 5 MG TABLET PO SCH (07:23)
[2016-10-17] MEDS: Valsartan 160 MG TABLET PO SCH (07:23)
[2016-10-17] MEDS: Aspirin 81 MG TAB.CHEW PO SCH (07:23)
--- NOTE | 2016-10-17 08:58 | Event Note ---
Date of Encounter: 10/17/16 Time of Encounter: 08:00 - Cardiology Event Note Seen and examined. He has no complaints upon exam this morning. Labs and vital signs are stable. Telemetry review: avg HR-60, continues to have episodes of 2:1 AVB overnight. ECG upon arrival: HR 54 SR w/LBBB (known) QRS 188 ms QT/QTc 513,498 ms. Lopressor has been held since admission. Plan for LHC today to rule out ischemic etiology; possible PPM later this afternoon depending on LHC findings. Alternatives, risks, and benefits of each procedure discussed; he is agreeable to proceed. Consents for both LHC and possible PPM obtained this AM. Further recommendations to follow. The patient will be discussed and reviewed with Dr. Kee; changes to be made accordingly.
--- NOTE | 2016-10-17 09:21 | Electrocardiograph Report ---
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
--- NOTE | 2016-10-17 11:30 | Pre-Sedation Evaluation ---
Pre-sedation evaluation - Pre-sedation checklist Date of procedure: 10/17/16 Procedure: [facility] Recent Vitals: Last Vital Signs Temp 97.7 F 10/17/16 07:20 Pulse 69 10/17/16 07:20 Resp 17 10/17/16 07:20 BP 116/83 10/17/16 07:20 Pulse Ox 95 10/17/16 07:20 H&P (including ROS) documented in medical record: Yes Previous reaction to sedatives/anesthetics: No Dietary Status: NPO after Midnight Dentition: No loose teeth or bridges ASA Classification *see protocol: CLASS II-Mild systemic disease Plan of Care: Pt appropriate candidate for procedure/moderate/conscious sedation , Risks/benefits of procedure/sedation discussed w/ patient/family
[2016-10-17] MEDS ORDERED: 0.9 % Sodium Chloride 1,000 ML ONE ×2 (12:34→13:00)
[2016-10-17] MEDS ORDERED: Verapamil 5 MG/2 ML VIAL ONE (12:34)
[2016-10-17] MEDS ORDERED: Nitroglycerin 1,000 MCG/10 ML VIAL IV ONE (12:35)
[2016-10-17] MEDS ORDERED: Heparin 1,000 UNITS/500 mL NS 500 ML ONE (12:35)
[2016-10-17] MEDS ORDERED: *HR* Heparin 10,000 UNIT/10 ML VIAL ONE (12:35)
[2016-10-17] MEDS ORDERED: *HR* FentaNYL (PF) 100 MCG/2 ML VIAL ONE (13:03)
[2016-10-17] MEDS ORDERED: *HR* Midazolam HCl 2 MG/2 ML VIAL ONE (13:03)
--- NOTE | 2016-10-17 14:21 | Invasive Diagnostic Lab Proc ---
Name: Franck Maldonado Date of Study: 10/17/2016 Date: 1945 Ht: 74.0in Medical Record#: [id number] Age: 70 Wt: 207.68lb Gender: Male BSA: 2.21 Order #: [id number] BMI: 26.65 Physicians Procedure Physician: Kishore Ricardo MD, [facility] Referring MD: Referring MD: Staff Name Position Time In Eliza Finley RN Rug Drying Machine Operator 01:05 PM Angela Anglin RN Scrub 01:05 PM Teresa Magaña RT (R) Monitor 01:05 PM Eleanor Reyes RT Rug Drying Machine Operator 02:04 PM Procedures Performed Procedure L HRT ARTERY/VENTRICLE ANGIO Pre-Procedure Checklist Informed consent is complete signed and on chart. H\\T\\P is on chart. ID band is on and ID verified with patient. Patient NPO for procedure The procedure was described for the patient and questions were answered. Blood Pressure: 116/83 ECG is on chart. Plan of Care Patient will tolerate the procedure without complications. Adequate level of comfort will be maintained. Hemodynamics will remain stable Patient will recover from procedure without complications. Respiratory function will be maintained. Cardiac rhythm will remain stable. Patient temperature will be maintained. Patient and/or family have verbalized understanding of the procedure. Patient Education Chief Complaint/Reason for Test: Cardiac Cath Developmental Category: Geriatric (65+ years) Developmentally Appropriate for Age: Yes Learning Barriers: None Education Needs: Procedure Education Method: Verbal Information Taught: Cardiac Cath Educational Evaluation: Able to repeat information Intravenous Access Time IV Size Location DC'd Fluid/Drip Rate Units RN 18g 1 05/15" Patent On Arrival Rt Antecubital 0.9NaCl Allergies Diclofenac SEASONAL Vital Signs Time BP (mmHg) HR (bpm) O2 Sat. RR (bpm) LOC 116 / 83 64 95 % 17 01:05 PM / % 5 = Fully awake and oriented or at pre-proc level 01:05 PM / % 5 = Fully awake and oriented or at pre-proc level 01:31 PM 183 / 83 45 97 % 20 01:35 PM 150 / 76 127 97 % 2 01:40 PM 167 / 78 50 97 % 20 01:44 PM 140 / 67 52 93 % 2 01:50 PM 143 / 67 48 94 % 15 01:54 PM 142 / 71 46 93 % 11 01:59 PM 138 / 70 44 94 % 14 Procedural Medications Time Medication Dose Units Method Given By 01:22 PM Oxygen 2 L/min nasal cannula Eliza Finley RN 01:29 PM Versed 2 mg Intravenous Eliza Finley RN 01:29 PM Fentanyl 25 mcg Intravenous Eliza Finley RN 01:37 PM Lidocaine 2% 0.5 ml Subcutaneous Kishore Ricardo MD, [facility] 01:40 PM Heparin 4000 units Nitroglycerin 200 mcg Verapamil 2.5 mg Intraarterial Kishore Ricardo MD, [facility] ASA Classification: CLASS II- Mild systemic disease (i.e. well-controlled diabetes, hypertension, asthma, cigarette smoking) Jose Guadalupe Score Preprocedure Postprocedure Activity 2- Moves 4 extremities sustained head lift Activity Circulation 2- SBP +/= 20 points of pre-anesthetic level Circulation Consciousness 2- Awake and alert oriented x 3 Consciousness O2 Saturation 2- Able to maintain O2 satruation of 92% on room air O2 Saturation Respiratory 2- Able to deep breathe and cough well Respiratory Total Score 10 Total Score Contrast Agent: Isovue Diagnostic Contrast: 92 ml Total Contrast: 92 ml Fluoro Dose: 388 mGy Procedure Log Time Note Enter By 01:05 PM Pt arrived to freezer laboratory technician 2 at 13:04 scoates 01:05 PM Eliza Finley RN Position: Rug Drying Machine Operator Time in: 13:05 scoates 01:05 PM Angela Anglin RN Position: Scrub Time in: 13:05 scoates 01:05 PM Teresa Magaña RT (R) Position: Monitor Time in: 13:05 scoates 01:05 PM Patient charges- Angio tray pack, Navilyst 3mm J, Pulse Oximetry and ACIST tubing and transducer scoates 01:05 PM IV Supplies used: J loop Angio Cath. scoates 01:05 PM Time: 13:05 Patient comfortable and pain free: Yes scoates 01:05 PM Time: 13:05LOC: 5 = Fully awake and oriented or at pre-proc level scoates 01:06 PM Clinical Presentation: Unstable angina scoates 01:22 PM CathStat 01:22 PM Case Start 01:22 PM Time: 13:05LOC: 5 = Fully awake and oriented or at pre-proc level scoates 01:22 PM Time: 13:05 Patient comfortable and pain free: Yes scoates 01:22 PM Physician arrived 13:22 scoates : PM ASA Class CLASS II- Mild systemic disease (i.e. well-controlled diabetes, hypertension, asthma, cigarette smoking) scoates : PM Meet and greet completed scoates : PM Sign in performed according to hospital policy. scoates : PM Procedure start 13:22 scoates : PM Time: 13: Oxygen on at 2 L/min per nasal cannula by Eliza Finley RN scoates : PM Hair removed from procedure site in procedure lab using clippers. Right wrist, right groin prepped with Chloraprep by Eliza Finley RN, safety strap applied then patient was draped. Skin intact. scoates : PM Vitals capture started with the following parameters, Patient=Adult, Interval=5 min, Initial Ebmlcfbg=407 mmHg, Deflation Rate=5 mmHg, Cuff placed on Left Leg 01 PM Time: 13: Versed 2 mg Intravenous Given by Eliza Finley RN dspell: PM Time: 13:29 Fentanyl 25 mcg Intravenous Given by Eliza Finley RN dspell:31 PM HR=45 bpm, AAPB=289/83 mmhg, SpO2=97 %, Resp=20 B/min 01:35 PM VY=071 bpm, JNEY=219/76 mmhg, SpO2=97 %, Resp=2 B/min 01:37 PM Time out performed according to hospital policy [email or web address] PM Time: 13:37 0.5 ml Lidocaine 2% to right radial Subcutaneous Given by Kishore Ricardo MD, [facility] dspell:39 PM Access obtained by percutaneous puncture. 5Fr 10cm Terumo Glidesheath sheath placed in right Radial artery. [id number] dspell:39 PM Recorded ECG: HR=49 Condition=Condition 1 01:40 PM Time: 13:40 Patient given 4,000 units Heparin, 200 mcg Nitroglycerin, and 2.5 mg Verapamil Intraarterial by Kishore Ricardo MD, [facility] dspellman :40 PM 5Fr JR4 catheter inserted over the wire [facility] dspell:40 PM HR=50 bpm, KCKR=638/78 mmhg, SpO2=97.0 %, Resp=20 B/min, Comment=sinus rhythm w bbb 01:40 PM 0.035 260cm Navilyst 3mmJ wire [id number] dspellman 01:41 PM Recorded Pressure: Ao, HR=52, Condition=Condition 1 (Aorta) Ao 148/82/106 01:43 PM Catheter removed dspellman 01:44 PM 5Fr TIG catheter inserted over the wire DNC dspellman 01:44 PM HR=52 bpm, TASV=786/67 mmhg, SpO2=93.0 %, Resp=2 B/min, Comment=sinus rhythm w bbb 01:45 PM Recorded Pressure: Ao, HR=55, Condition=Condition 1 (Aorta) Ao 119/80/97 01:46 PM LCA angiography performed in multiple views. dspellman 01:47 PM Recorded Pressure: Ao, HR=49, Condition=Condition 1 (Aorta) Ao 126/76/97 01:48 PM RCA angiography performed in multiple views. dspellman 01:49 PM Coronary Dominance: right dspellman 01:49 PM Lesion found in Mid RCA. Pre Stenosis: 40 Pre BERNICE Flow: dspellman 01:50 PM Lesion found in Right PDA. Pre Stenosis: 30 Pre BERNICE Flow: dspellman 01:50 PM HR=48 bpm, LMBO=260/67 mmhg, SpO2=94.0 %, Resp=15 B/min, Comment=sinus rhythm w bbb 01:50 PM Lesion found in 1st Diagonal. Pre Stenosis: 90 Pre BERNICE Flow: dspellman 01:50 PM Lesion found in Mid Circumflex. Pre Stenosis: 90 Pre BERNICE Flow: dspellman 01:50 PM Lesion found in LMCA. Pre Stenosis: 50 Pre BERNICE Flow: dspellman 01:51 PM Lesion found in Mid LAD. Pre Stenosis: 50 Pre BERNICE Flow: dspellman 01:51 PM Catheter removed dspellman 01:52 PM 5Fr Pigtail catheter inserted over the wire DN dspellman 01:52 PM Catheter selectively placed in left ventricle dspellman 01:52 PM Bolus angiogram of left Ventricle complete: 10 ml/sec for a total of 30 mls dspellman 01:53 PM Pressure channel 1 zero failed. 01:53 PM Pressure channel 1 zero failed. 01:53 PM Pressure channel 1 zero failed. 01:54 PM Pressure channel 1 zeroed. 01:54 PM Recorded Pressure: LV, HR=47, Condition=Condition 1 (Left Ventricle) LV 137/8/14 01:54 PM HR=46 bpm, JVQY=872/71 mmhg, SpO2=93.0 %, Resp=11 B/min, Comment=sinus rhythm w bbb 01:55 PM Recorded Pressure: LV, Ao, HR=50, Condition=Condition 1 (Left Ventricle) LV 146/7/16, (Aorta) Ao 152/69/98 01:56 PM Catheter removed dspell:56 PM Wire removed dspell:56 PM Left Main Coronary Artery with 50% stenosis dspell:57 PM Procedure completed at 13:57 dspell:58 PM Sign out completed: Radiation Dose 387.5 mGy Fluoro Time: 6.3 Isovue 370 - 200ml contrast 91.7 ml given by Kishore Ricardo MD, [facility]. Complications: NoneCardiac Rehab Consult needed: YesConfirmed administered medications: Yes dspell:58 PM Isovue 370 - 200ml,1 Bottle(s) used. dspell:58 PM Arterial sheath pulled, Vasc Band closure device used and was Successful S/N. dspell:58 PM 8 ml air in Vasc Band. dspell 01:58 PM Post ECG Sinus Bradycardia dspellman 01:58 PM Post Blood Pressure 142/71 dspellman :58 PM 13:58 Post Pulses Rt Radial 2+ dspell:58 PM Information taught Cardiac Cath and Vasc Band dspell 01:59 PM Education needs Procedure, Plan of Care, and Responsibilities of Patient in Care dspell:59 PM Learning barriers :None ell:59 PM Education Methods Verbal dspell:59 PM Education evaluation Able to repeat information ell:59 PM Site status No bleeding/hematoma - Rt Wrist as reported by Angela Anglin RN at 13:59 dspell 01:59 PM HR=44 bpm, YSFO=728/70 mmhg, SpO2=94.0 %, Resp=14 B/min 02:01 PM Complications: None dspell 02:01 PM Fluoro Time: 6.3 dspell 02:01 PM Isovue 370 - 200ml contrast 91.7 ml given by Kishore Ricardo MD, FACC. dspell 02:01 PM Radiation Dose 387.50 mGy dspell 02:[address] Centeno paged dspellman 02:04 PM Mid/Distal Left Anterior Descending Coronary Artery and diagonal branches with 90% stenosis. If graft is supplying this area, 0 % stenosis dspellman 02:04 PM Circumflex, Obtuse Marginal, Left Posterior Descending, and Left Posterolateral Coronary Arteries with 90 % stenosis. If graft is supplying this area, 0 % stenosis dspellman 02:04 PM Right Coronary, Right Posterior Descending Arteries with Right Posterolateral and Acute Marginal branches with 40 % stenosis. If graft is supplying this area, 0 % stenosis dspellman 02:04 PM Eleanor Reyes RT Position: Rug Drying Machine Operator Time in: 14:04 dspellman 02:[address] Centeno responded dspellman 02:09 PM Delay to floor No dspellman 02:09 PM Report given to Wayne GARRETT Pt taken to 2N Room #13. 14:09 dspellman 02:09 PM Patient out of room: 14:09 dspellman 02:10 PM Family placed in consult room. dspellman 02:10 PM Complications: None dspellman Complications Complication None None None Hemodynamics Pressures Site Systolic/A Wave Diastolic/V Wave Mean AO 148 82 106 AO 119 80 97 AO 126 76 97 LV 137 8 14 LV 146 7 16 AO 152 69 98 Post Procedure Information Blood Pressure: 142/71 mmHg Rhythm: Sinus Bradycardia Post procedural instructions were given Surgery consult for CABG Closure Device Time Device Success/Fail 10/17/2016 2:11:00 PM Mechanical Compression Successful Site Checks Time Location Status Staff Sheath In? Note 01:59 PM Rt Wrist No bleeding/hematoma Angela Anglin RN Pulses Time Site Pre-Procedure Post-Procedure Note 10/17/2016 8:02:00 AM Bilateral radial 2+ 10/17/2016 8:02:00 AM Bilateral DP \\T\\ PT 1+ 1:58:00 PM Rt Radial 2+ Updated by Teresa Magaña, (R) on 10/17/2016 2:15:44 PM Teresa Magaña RT electronically signed on 10/17/2016 2:16:18 PM with status of Final
--- NOTE | 2016-10-17 15:00 | Internal Med Progress Note ---
Date of Encounter: 10/17/16 Time of Encounter: 10:00 - Assessment and plan (1) Mobitz type 2 second degree AV block Current Visit: Yes Status: Acute Assessment and plan: HR now ~ 70, improved BB on hold, cardiology following, [facility] today, will need PPM (2) Symptomatic bradycardia Current Visit: Yes Status: Acute Assessment and plan: avoid AV garland blockers (3) CAD (coronary artery disease) Current Visit: Yes Status: Chronic Assessment and plan: Hx of PCI to RCA and LCx in 2008 at outside facility. ASA, Statin. No BB due to bradycardia and Mobitz type II heart block. Qualifiers: Coronary Disease-Associated Artery/Lesion type: unspecified vessel or lesion type [place] vs. transplanted heart: [place] heart Associated angina: angina presence unspecified Qualified Code(s): I25.10 - Atherosclerotic heart disease of [place] coronary artery without angina pectoris (4) Hypertension Current Visit: Yes Status: Chronic Assessment and plan: controlled, continue valsartan Qualifiers: Hypertension type: essential hypertension Qualified Code(s): I10 - Essential (primary) hypertension (5) DVT prophylaxis Current Visit: Yes Status: Acute Assessment and plan: heparin sc - Time Spent With Patient less than 15 minutes - Subjective Interval history: Patient awake and alert. Not in any distress. Feels better. Denies chest pain or shortness of breath. HR has now improved. [facility] today. No other acute events or complaints. - Constitutional Vitals: Temp Pulse Resp BP Pulse Ox 98.1 F 44 18 127/65 94 10/17/16 14:20 10/17/16 14:30 10/17/16 14:20 10/17/16 14:30 10/17/16 14:20 General appearance: Present: cooperative, A&O X 3, pleasant, no acute distress, answers questions appropriately - Head Head exam: Present: atraumatic - Neck Neck exam general surgery: Present: supple - Respiratory Respiratory exam: Present: CTAB. Absent: rhonchi, wheezes - Cardiovascular Cardiovascular exam: Present: RRR, +S1, +S2 - GI/Abdominal GI/Abdominal exam: Present: soft. Absent: guarding, tenderness - Extremities Exam Extremities exam: Present: radial pulses palpable and symetrical. Absent: cyanotic, pedal edema, tenderness - Neurological Exam Neurological exam: Present: alert, oriented X3, no focal deficits Internal Medicine: Result - Labs CBC & Chem 7: 10/16/16 04:11 10/16/16 04:11 - ABG Interpretation ABG results: PT/INR, D-dimer PT 11.9 Seconds (9.4-12.1) 10/15/16 05:10 Consult Discharge Plan - Plan Referrals: Aparna Dawson, AIRCONDITIONING PLANT OPERATOR [Advanced Practice Nurse] - 10/25/16 10:00 am
--- NOTE | 2016-10-17 15:25 | Cardiology Consult Note ---
Date of Encounter: 10/17/16 Time of Encounter: 15:00 Assessment and Plan (1) Bradycardia Current Visit: Yes Status: Acute Per EP: -Patient with symptomatic bradycardia on admission. -2:1 AV block noted per review with Dr.John russell. -LHC today with non-obstructive disease in RCA. LEft main stenosis noted. CT surgery has been consulted. -Plan for CABG pending evaluation by CT surgery. -Per discussion with Dr.John Russell, no need for urgent permanent pacemaker placement. -Will plan for permanent pacemaker after CABG. -Discussed with patient and family and are agreeable. -EP will sign off. Re-consult once patient is ready for pacemaker. Discussion w patient/family: The assessment and plan as outlined above was discussed with the patient and/or family members who expressed understanding and agreement. All questions were answered. Thank you for involving us in the care of your patient. Please call with any questions. Discussed and reviewed with Dr.John Russell. History of Present Illness Consult date: 10/17/16 Requesting physician: Natali Gross Consult reason: evaluation for pacemaker Chief complaint: syncope/shortness of breath History of present illness: Per EP: Mr. Maldonado is a 70 year old male with PMH of CAD s/p PCI to RCA and LCx in 2008, HTN, HLD, known LBBB that presented to ED with chief complaint of dizziness, lightheadedness, and presyncope. Patient reports symptoms started approximately 1 month ago. He had a syncopal event 3 weeks ago when going from sitting to standing position. He reports mostly exertional chest pain over the past month, described as midsternal and dull with occasional radiation to right arm, subsides with rest. He reports chest pain occasionally through the night as well. He has noticed increased dyspnea. Symptoms are similar to prior anginal equivalent. Troponins negative x 3. HR reportedly noted to be 30s in ED. Was on Lopressor at home, which is now being held. Orthostatic blood pressures negative. HR decreased to 40s upon standing. Patient noted to have 2:1 AV block. Patient underwent LHC today and noted to have left main disease. RCA with non-obstructive CAD. CT surgery has been consulted for left main disease. EP has been consulted for evaluation for pacemaker. Echo obtained during stay shows EF 55%, moderate concentric LVH, mild diastolic dysfunction, dilated RV with normal function, mild MR, mild TR, mild-moderate IL , no pulmonary hypertension noted. Past Med Surg Social Fam HX - Past Medical History Attestation: Yes The following information was validated with the patient. Source: patient, old records reviewed, obtained from family Medical history: coronary artery disease, hypertension, myocardial infarction Psychiatric history: no psych history - Past Surgical History Surgical History: angioplasty/stent, herniorrhaphy, other (Placement of two stents in 2008) - Social History Smoking Status: Former smoker Packs per day: 1/2 PPD - quit 40+ years ago Smokeless Tobacco Status: No Alcohol use: occasionally Drug use: none - Family History Mother Race: Family Member Ethnicity: Non- Living Status: Age at : 89 Cause of : Breast cancer Hx Family Cardiac Disorders: Yes (CHF) Hx Family Cancer: Yes (Breast) Father Race: Family Member Ethnicity: Non- Living Status: Age at : 73 Cause of : CHF Hx Family Cardiac Disorders: Yes (CHF) Brother Race: Family Member Ethnicity: Non- Living Status: Still Living Hx Family Medical Disorders: No Sister Race: Family Member Ethnicity: Non- Living Status: Still Living Hx Family Medical Disorders: No Medications and Allergies Aspirin 81 mg PO DAILY 10/15/16 [History] Cyanocobalamin (Vitamin B-12) [Vitamin B-12] 1,000 mcg SL DAILY 10/15/16 [ History] Flaxseed Oil [Kane-3 Flaxseed Oil] 1,000 mg PO DAILY 10/15/16 [History] Glucosamine HCl/Chondr Telles A Na [Cvs Glucosamine-Chondr Tablet] 1 each PO DAILY 10/15/16 [History] LORazepam [Ativan] 1 mg PO HS PRN 10/15/16 [History] Metoprolol [Lopressor] 25 mg PO BID 10/15/16 [History] Mv-Mn/FA/Vit K/Lycop/Lut/Coq10 [Daily Multivitamin Capsule] 1 each PO DAILY 10/26 [History] Kane-3/Dha/Epa/Fish Oil [Fish Oil 1,000 mg Softgel] 1 each PO DAILY 10/15/16 [ History] Potassium 99 mg PO DAILY 10/15/16 [History] Rosuvastatin Calcium [Crestor] 10 mg PO HS 10/15/16 [History] Sildenafil Citrate [Revatio] 20 mg PO DAILY 10/15/16 [History] Valsartan/Hydrochlorothiazide [Diovan Hct 320-12.5 mg Tab] 1 each PO DAILY 10/15 [History] Vitamin E 200 unit PO DAILY 10/15/16 [History] amLODIPine [Norvasc] 5 mg PO DAILY 10/15/16 [History] Allergies Diclofenac [From Voltaren] Adverse Reaction (Verified 10/15/16 10:55) Abdominal Pain All Systems Review: A 10-system review of systems was performed and is negative for pertinent findings except as documented above in the HPI. - Cardiovascular Cardiovascular: as per HPI, chest pain with exertion, dyspnea on exertion, lightheadedness, slow heart rate - Neurological Neurological: dizziness Physical Examination Vital Signs, Last 4 Hours Temp Pulse Resp BP Pulse Ox 10/17/16 15:00 57 144/80 10/17/16 14:45 42 124/65 10/17/16 14:30 44 127/65 10/17/16 14:20 98.1 F 61 18 129/74 94 10/17/16 11:45 97.9 F 42 16 146/69 94 General: Conversant, No Apparent Distress HEENT: Atraumatic, Normocephaly, Mucus Membranes Moist Neck: No JVD, Normal carotid pulses Cardiac: Normal S1 and S2, No Murmur, Other (Bradycardic. ) Lungs: Normal Breath Sounds, No Wheeze, Rales, Rhonchi Neuro: Alert and responsive, No focal deficits noted Abdomen: Soft, Non-Tender Skin: No rashes noted on visualized skin, Other (Right radial access site without hematoma or ecchymosis. TR band intact. ) Musculoskeletal: No Chest Wall Tenderness Extremities: No Clubbing, No Cyanosis, No Edema, Normal Pulses Results 10/16/16 04:11 10/16/16 04:11 Current Medications Amlodipine Besylate (Norvasc) 5 mg PO DAILY [facility] PRN Reason: Protocol Stop: 04/16/17 17:16 Last Admin: 10/17/16 07:23 Dose: 5 mg Aspirin (Aspirin) 81 mg PO DAILY [facility] Stop: 04/17/17 09:01 Last Admin: 10/17/16 07:23 Dose: 81 mg Heparin Sodium (Porcine) (Heparin) 5,000 unit SQ Q8HCO [facility] Stop: 04/16/17 22:01 Last Admin: 10/17/16 14:38 Dose: Not Given Lorazepam (Ativan) 0.5 mg PO HS PRN PRN Reason: Insomnia Stop: 04/16/17 12:42 Naloxone HCl (Narcan) 0.4 mg IVP Q2MIN PRN PRN Reason: Opioid Reversal Stop: 04/16/17 12:47 Potassium Chloride (Potassium Chloride) 10 meq PO DAILY [facility] Stop: 04/17/17 15:16 Last Admin: 10/17/16 07:24 Dose: 10 meq Rosuvastatin Calcium (Crestor) 20 mg PO HS [facility] Stop: 04/17/17 21:01 Last Admin: 10/16/16 20:54 Dose: 20 mg Valsartan (Diovan) 160 mg PO DAILY [facility] Stop: 04/17/17 15:08 Last Admin: 10/17/16 07:23 Dose: 160 mg Laboratory Tests 10/16/16 10/16/16 04:11 04:11 Hgb 13.9 Potassium 3.9 Creatinine 0.84 Magnesium 1.7 TSH 1.044 - Imaging and Cardiology Echo: report reviewed Cardiac cath: report reviewed - EKG Interpretation EKG results cardiology: personally reviewed (ECG with 2:1 AV block, LBBB, HR 54. ), other (Telemetry reviewed with average HR previous 8 hours noted to be 59, 2: 1 AV block. Minimum HR 42.) Consult Discharge Plan - Plan Referrals: Aparna Dawson, KNITTING MACHINE OPERATOR [employer]OMATIC [Advanced Practice Nurse] - 10/25/16 10:00 am
--- NOTE | 2016-10-17 16:09 | Cardiothoracic Consult Note ---
Date of Encounter: 10/17/16 Time of Encounter: 16:03 Assessment and Plan (1) CAD (coronary artery disease) Current Visit: Yes Status: Chronic The patient is a 70-year-old hypertensive man with known CAD who presents to [facility] with progressive dizziness and lightheadedness. In the emergency department the patient was noted to have second-degree heart block, Mobitz type II. In addition, the patient mentioned that he had exertional nonradiating substernal chest pain. He underwent cardiac catheterization today was found to have severe two-vessel CAD. Patient has been recommended for CABG. I concur with this recommendation. The CABG is tentatively scheduled for Friday, October 21, 2016 and will be perormed by Dr. Carmine Bryant. The assessment and plan as outlined above was discussed with the patient and/or family members who expressed understanding and agreement. All questions were answered. Qualifiers: Coronary Disease-Associated Artery/Lesion type: unspecified vessel or lesion type [place] vs. transplanted heart: [place] heart Associated angina: angina presence unspecified Qualified Code(s): I25.10 - Atherosclerotic heart disease of [place] coronary artery without angina pectoris - History of Present Illness Consult date: 10/17/16 Requesting physician: Kishore Ricardo Consult reason: CABG evaluation. Chief complaint: Shortness of breath and dizziness History of present illness: Mr. Maldonado is a 70 year old hypertensive man with known CAD who has had a 2 year history of progressive dizziness and lightheadedness. He states that during the last 4-5 months he would have severe dizziness and lightheadedness while working in his yard. This particularly occurred when he would bend over to car pick up driver sticks which a bone down into the yard. Recently, the patient has had progressive episodes of dizziness and lightheadedness associated with shortness of breath. He was evaluated at [facility] emergency department and found to have second-degree heart block, Mobitz type II. He was admitted for possible pacemaker insertion. During his workup he also mentioned that he had occasional exertional, nonradiating substernal chest pain. He also would have occasional pain which awoke him from sleep. The patient underwent cardiac catheterization today was found to have severe two-vessel CAD. In particular the patient is a 50% distal left main lesion, a 50% mid LAD lesion, a 90% proximal D1 lesion, a 90% mid LCx lesion, and a 40% mid RCA lesion. The patient has been recommended for CABG prior to dual-chamber pacemaker insertion. Past Med Surg Social Fam HX - Past Medical History Medical history: coronary artery disease, hypertension, myocardial infarction Psychiatric history: no psych history - Past Surgical History Surgical History: angioplasty/stent, herniorrhaphy (Right inguinal herniorrhaphy.), other (Placement of two cardiac stents in 2008) - Social History Smoking Status: Former smoker Packs per day: 1/2 PPD - quit 40+ years ago Smokeless Tobacco Status: No Alcohol use: occasionally Drug use: none - Family History Mother Race: Family Member Ethnicity: Non- Living Status: Age at : 89 Cause of : Breast cancer Hx Family Cardiac Disorders: Yes (CHF) Hx Family Cancer: Yes (Breast) Father Race: Family Member Ethnicity: Non- Living Status: Age at : 73 Cause of : CHF Hx Family Cardiac Disorders: Yes (CHF) Brother Race: Family Member Ethnicity: Non- Living Status: Still Living Hx Family Medical Disorders: No Sister Race: Family Member Ethnicity: Non- Living Status: Still Living Hx Family Medical Disorders: No Medications and Allergies Aspirin 81 mg PO DAILY 10/15/16 [History] Cyanocobalamin (Vitamin B-12) [Vitamin B-12] 1,000 mcg SL DAILY 10/15/16 [ History] Flaxseed Oil [[place]-3 Flaxseed Oil] 1,000 mg PO DAILY 10/15/16 [History] Glucosamine HCl/Chondr Telles A Na [Cvs Glucosamine-Chondr Tablet] 1 each PO DAILY 10/15/16 [History] LORazepam [Ativan] 1 mg PO HS PRN 10/15/16 [History] Metoprolol [Lopressor] 25 mg PO BID 10/15/16 [History] Mv-Mn/FA/Vit K/Lycop/Lut/Coq10 [Daily Multivitamin Capsule] 1 each PO DAILY 10/26 [History] [place]-3/Dha/Epa/Fish Oil [Fish Oil 1,000 mg Softgel] 1 each PO DAILY 10/15/16 [ History] Potassium 99 mg PO DAILY 10/15/16 [History] Rosuvastatin Calcium [Crestor] 10 mg PO HS 10/15/16 [History] Sildenafil Citrate [Revatio] 20 mg PO DAILY 10/15/16 [History] Valsartan/Hydrochlorothiazide [Diovan Hct 320-12.5 mg Tab] 1 each PO DAILY 10/15 [History] Vitamin E 200 unit PO DAILY 10/15/16 [History] amLODIPine [Norvasc] 5 mg PO DAILY 10/15/16 [History] Allergies Diclofenac [From Voltaren] Adverse Reaction (Verified 10/15/16 10:55) Abdominal Pain All Systems Review: A 10-system review of systems was performed and is negative for pertinent findings except as documented above in the HPI. Physical Examination Vital Signs, Last 4 Hours Temp Pulse Resp BP Pulse Ox 10/17/16 15:30 40 126/75 10/17/16 15:00 57 144/80 10/17/16 14:45 42 124/65 10/17/16 14:30 44 127/65 10/17/16 14:20 98.1 F 61 18 129/74 94 General: Conversant, No Apparent Distress Neck: No JVD, Normal carotid pulses Cardiac: Reg Rate and Rhythm, Normal S1 and S2, No Murmur Lungs: Normal Breath Sounds, No Wheeze, Rales, Rhonchi Neuro: Alert and responsive, No focal deficits noted, Motor nerves intact, Sensory nerves intact Vascular: Normal capillary refill Abdomen: Soft, Non-tender Musculoskeletal: No Chest Wall Tenderness Extremities: No Clubbing, No Cyanosis, No Edema, Normal Pulses Results 10/16/16 04:11 10/16/16 04:11 - Imaging Chest Xray: image reviewed (Normal cardiac size. Bilateral granulomatous lesions.) Consult Discharge Plan - Plan Referrals: Aparna Dawson VENTILATING EXPERT [Advanced Practice Nurse] - 10/25/16 10:00 am
[2016-10-18] MEDS: *HR* Heparin 5,000 UNIT/ML VIAL SQ SCH ×3 (04:56→21:02)
[2016-10-18] MEDS: amLODIPine 5 MG TABLET PO SCH (08:31)
[2016-10-18] MEDS: Aspirin 81 MG TAB.CHEW PO SCH (08:31)
[2016-10-18] MEDS: Valsartan 160 MG TABLET PO SCH (08:31)
--- NOTE | 2016-10-18 09:05 | Cardiology Progress Note ---
Date of Encounter: 10/18/16 Time of Encounter: 07:50 Assessment and Plan (1) Mobitz type 2 second degree AV block Current Visit: Yes Status: Acute Pt presented with dizziness, lightheadedness, presyncope and syncopal episode 3 weeks ago. HR reported to be 30s in ED, lowest HR on tele is 40s; betablocker (lopressor 25 BID) held since admission. ECG upon admission: HR 54 SR with LBBB QRS 188 ms QT/QTc 513/498 ms. Telemetry review: avg HR=48, intermittent Mobitz type II heart block noted on telemetry. Denies dizziness, pre-syncope/syncope as inpt. TTE 10/15/16: EF 55%, mild cLVH, mild LVDD, mild MR/TR, normal wall motion. BCU 10/15/16: bilateral minimal plaque LHC 10/16/16: severe 3v CAD-- 50% LMCA, 50% mLAD, 90% 1st diagonal, 90% mLCx, 40% mRCA, and 30% R PDA. See EP consult note--given findings of MVD on [facility], patient recommended to undergo CABG. Recommend PPM implant after CABG, prior to discharge. Please re-consult Cardiology when patient is stable to proceed with PPM implant from CT surgery standpoint. (2) CAD (coronary artery disease) Current Visit: Yes Status: Chronic Hx of PCI to RCA and LCx in 2008 at outside facility. Severe 3v CAD per [facility] yesterday, recommend CT surgery consult for CABG; tentatively scheduled for Friday with Dr. Bryant. Continue asa and statin. No betablocker due to AVB. Qualifiers: Coronary Disease-Associated Artery/Lesion type: unspecified vessel or lesion type [place] vs. transplanted heart: [place] heart Associated angina: angina presence unspecified Qualified Code(s): I25.10 - Atherosclerotic heart disease of [place] coronary artery without angina pectoris Discussion w patient/family: The assessment and plan as outlined above was discussed with the patient and/or family members who expressed understanding and agreement. All questions were answered. Thank you for involving us in the care of your patient. Please call with any questions. The patient was discussed and reviewed with Dr. Kee; Cardiology will sign-off , please re-consult when patient is ready from CT surgery standpoint to proceed with PPM. Subjective Principal diagnosis: 2:1 AVB, MVD Interval history: Seen and examined this AM--denies complaints overnight. No issues with cath site. Tentative plan for CABG on Friday with Dr. Bryant. Objective Vital Signs, Last 4 Hours Temp Pulse Resp BP Pulse Ox 10/18/16 08:35 44 10/18/16 07:27 98.2 F 43 18 129/79 97 General: Conversant, No Apparent Distress HEENT: Atraumatic, Normocephaly Cardiac: Reg Rate and Rhythm, Normal S1 and S2 Lungs: Normal Breath Sounds Neuro: Alert and responsive Abdomen: Soft Skin: No rashes noted on visualized skin Musculoskeletal: No Chest Wall Tenderness Extremities: No Edema, Normal Pulses Results 10/16/16 04:11 10/16/16 04:11 Active Medications Amlodipine Besylate (Norvasc) 5 mg PO DAILY IMANI PRN Reason: Protocol Stop: 04/16/17 17:16 Last Admin: 10/18/16 08:31 Dose: 5 mg Aspirin (Aspirin) 81 mg PO DAILY IMANI Stop: 04/17/17 09:01 Last Admin: 10/18/16 08:31 Dose: 81 mg Heparin Sodium (Porcine) (Heparin) 5,000 unit SQ Q8HCO IMANI Stop: 04/16/17 22:01 Last Admin: 10/18/16 04:56 Dose: 5,000 unit Lorazepam (Ativan) 0.5 mg PO HS PRN PRN Reason: Insomnia Stop: 04/16/17 12:42 Naloxone HCl (Narcan) 0.4 mg IVP Q2MIN PRN PRN Reason: Opioid Reversal Stop: 04/16/17 12:47 Potassium Chloride (Potassium Chloride) 10 meq PO DAILY IMANI Stop: 04/17/17 15:16 Last Admin: 10/18/16 08:31 Dose: 10 meq Rosuvastatin Calcium (Crestor) 20 mg PO HS IMANI Stop: 04/17/17 21:01 Last Admin: 10/17/16 21:10 Dose: 20 mg Valsartan (Diovan) 160 mg PO DAILY IMANI Stop: 04/17/17 15:08 Last Admin: 10/18/16 08:31 Dose: 160 mg - Imaging and Cardiology Echo: report reviewed Cardiac cath: report reviewed Other Results: 12 hour tele: avg HR=48 SB. Episodes of 2nd degree AVB noted. - EKG Interpretation EKG results cardiology: personally reviewed Consult Discharge Plan - Plan Referrals: Aparna Dawson CNP [Advanced Practice Nurse] - 10/25/16 10:00 am
--- NOTE | 2016-10-18 09:55 | Cardiothoracic Progress Note ---
Date of Encounter: 10/18/16 Time of Encounter: 09:54 - Assessment and plan (1) CAD (coronary artery disease) Current Visit: Yes Status: Chronic The patient is a 70-year-old hypertensive man with known CAD who presents to [facility] with progressive dizziness and lightheadedness. In the emergency department the patient was noted to have second-degree heart block, Mobitz type II. In addition, the patient mentioned that he had exertional nonradiating substernal chest pain. He underwent cardiac catheterization today was found to have severe two-vessel CAD. Patient has been recommended for CABG. I concur with this recommendation. The CABG is tentatively scheduled for Friday, October 21, 2016 and will be perormed by Dr. Carmine Bryant. The assessment and plan as outlined above was discussed with the patient and/or family members who expressed understanding and agreement. All questions were answered. Qualifiers: Coronary Disease-Associated Artery/Lesion type: unspecified vessel or lesion type [place] vs. transplanted heart: [place] heart Associated angina: angina presence unspecified Qualified Code(s): I25.10 - Atherosclerotic heart disease of [place] coronary artery without angina pectoris - Subjective Interval history: The patient is resting comfortably in his hospital bed. He has no complaints of substernal chest pain or shortness of breath. Vital Signs, Last 4 Hours Temp Pulse Resp BP Pulse Ox 10/18/16 08:35 44 10/18/16 07:27 98.2 F 43 18 129/79 97 Clinical Data, last 8 Hours Output, Urine Amount 250 Weight 10/16/16 10/17/16 10/18/16 23:59 23:59 23:59 Weight 93.5 kg 93.8 kg - Physical Examination General: Conversant, No Apparent Distress Neck: No JVD, Normal carotid pulses Cardiac: Normal S1 and S2, No Murmur, Other (2 heart block, Mobitz type II) Lungs: Normal Breath Sounds, No Wheeze, Rales, Rhonchi Neuro: Alert and responsive, No focal deficits noted Vascular: Normal capillary refill Extremities: No Clubbing, No Cyanosis, No Edema - Labs 10/16/16 04:11 10/16/16 04:11 Consult Discharge Plan - Plan Referrals: Aparna Dawson CLERK TO JUSTICE [Advanced Practice Nurse] - 10/25/16 10:00 am
[2016-10-18 11:09] LABS: Hemoglobin A1C 5.5 %
--- NOTE | 2016-10-18 11:15 | Internal Med Progress Note ---
Date of Encounter: 10/18/16 Time of Encounter: 10:00 - Assessment and plan (1) Mobitz type 2 second degree AV block Current Visit: Yes Status: Acute Assessment and plan: HR now ~ 50, improved, BB on hold, cardiology following, Pacemaker implant after CABG prior to discharge (2) Symptomatic bradycardia Current Visit: Yes Status: Acute Assessment and plan: avoid AV garland blockers. Needs permanent pacemaker. (3) CAD (coronary artery disease) Current Visit: Yes Status: Chronic Assessment and plan: Hx of PCI to RCA and LCx in 2008 at outside facility. ASA, Statin. No BB due to bradycardia and Mobitz type II heart block. Cholesterol Done yesterday shows severe three-vessel disease. Cardiothoracic surgery has been contacted and patient is scheduled for CABG on Friday. Dr. Saez has evaluated the patient Qualifiers: Coronary Disease-Associated Artery/Lesion type: unspecified vessel or lesion type [place] vs. transplanted heart: [place] heart Associated angina: angina presence unspecified Qualified Code(s): I25.10 - Atherosclerotic heart disease of [place] coronary artery without angina pectoris (4) Hypertension Current Visit: Yes Status: Chronic Assessment and plan: controlled, continue valsartan Qualifiers: Hypertension type: essential hypertension Qualified Code(s): I10 - Essential (primary) hypertension (5) DVT prophylaxis Current Visit: Yes Status: Acute Assessment and plan: heparin sc - Time Spent With Patient less than 15 minutes - Subjective Interval history: Patient awake and alert. Not in any distress. Denies chest pain or shortness of breath. HR has now improved. LHC revealed severe three-vessel disease. Cardiothoracic surgery Dr. Centeno has been consulted. Patient will be scheduled for CABG on Friday. Permanent pacemaker will be placed before discharge as well. Patient continues to be bradycardic. No other acute events or complaints. - Constitutional Vitals: Temp Pulse Resp BP Pulse Ox 98.2 F 44 18 129/79 97 10/18/16 07:27 10/18/16 08:35 10/18/16 07:27 10/18/16 07:27 10/18/16 07:27 General appearance: Present: cooperative, A&O X 3, pleasant, no acute distress, answers questions appropriately - Head Head exam: Present: atraumatic - Neck Neck exam general surgery: Present: supple - Respiratory Respiratory exam: Present: CTAB. Absent: rhonchi, wheezes - Cardiovascular Cardiovascular exam: Present: bradycardia, +S1, +S2 - GI/Abdominal GI/Abdominal exam: Present: soft. Absent: guarding, tenderness - Extremities Exam Extremities exam: Present: radial pulses palpable and symetrical. Absent: cyanotic, pedal edema - Neurological Exam Neurological exam: Present: alert, oriented X3, no focal deficits Internal Medicine: Result - Labs CBC & Chem 7: 10/16/16 04:11 10/16/16 04:11 - ABG Interpretation ABG results: PT/INR, D-dimer PT 11.9 Seconds (9.4-12.1) 10/15/16 05:10 Consult Discharge Plan - Plan Referrals: Aparna Dawson GAS METER INSTALLER [Advanced Practice Nurse] - 10/25/16 10:00 am
[2016-10-19] MEDS: *HR* Heparin 5,000 UNIT/ML VIAL SQ SCH ×3 (05:07→21:51)
[2016-10-19] MEDS: Valsartan 160 MG TABLET PO SCH (07:24)
[2016-10-19] MEDS: Aspirin 81 MG TAB.CHEW PO SCH (07:24)
[2016-10-19] MEDS: amLODIPine 5 MG TABLET PO SCH (07:24)
--- NOTE | 2016-10-19 10:51 | Cardiothoracic Progress Note ---
Date of Encounter: 10/19/16 Time of Encounter: 10:48 - Assessment and plan (1) CAD (coronary artery disease) Current Visit: Yes Status: Chronic The assessment and plan as outlined above was discussed with the patient and/or family members who expressed understanding and agreement. All questions were answered. The patient is scheduled for coronary artery bypass grafting on Friday. We will place temporary pacemaking wires at surgery and he will require a permanent pacemaker prior to discharge. Operative consent was obtained. Risks include , infection, stroke, bleeding, myocardial infarction, clots around the heart, acute renal or respiratory failure, acute or chronic graft closure, phrenic nerve injury and sternal dehiscence. The procedure, its risks, benefits and alternatives were explained and he does wish to proceed. He has no questions. Qualifiers: Coronary Disease-Associated Artery/Lesion type: unspecified vessel or lesion type [place] vs. transplanted heart: [place] heart Associated angina: angina presence unspecified Qualified Code(s): I25.10 - Atherosclerotic heart disease of [place] coronary artery without angina pectoris - Subjective Interval history: The patient had a mild episode of chest pain this morning associated with a bradycardic episode. Vital Signs, Last 4 Hours Temp Resp BP Pulse Ox 10/19/16 07:22 97.6 F 17 150/70 99 Clinical Data, last 8 Hours Output, Urine Amount 400 Output, Urine Amount 800 Weight 10/17/16 10/18/16 10/19/16 23:59 23:59 23:59 Weight 93.5 kg 93.8 kg Lungs are clear to percussion and auscultation. Heart is in a normal sinus rhythm. He does have bradycardia. - Labs 10/16/16 04:11 10/16/16 04:11 Consult Discharge Plan - Plan Referrals: Aparna Dawson CANCELING MACHINE OPERATOR [Advanced Practice Nurse] - 10/25/16 10:00 am
--- NOTE | 2016-10-19 13:23 | Internal Med Progress Note ---
Date of Encounter: 10/19/16 Time of Encounter: 10:25 - Assessment and plan (1) Mobitz type 2 second degree AV block Current Visit: Yes Status: Acute Assessment and plan: HR now ~ 40, improved, BB on hold, cardiology following, Pacemaker implant after CABG prior to discharge (2) Symptomatic bradycardia Current Visit: Yes Status: Acute Assessment and plan: avoid AV garland blockers. Needs permanent pacemaker. (3) CAD (coronary artery disease) Current Visit: Yes Status: Chronic Assessment and plan: Hx of PCI to RCA and LCx in 2008 at outside facility. ASA, Statin. No BB due to bradycardia and Mobitz type II heart block. Heart cath shows severe three-vessel disease. Cardiothoracic surgery has been contacted and patient is scheduled for CABG on Friday. Dr. Saez has evaluated the patient Qualifiers: Coronary Disease-Associated Artery/Lesion type: unspecified vessel or lesion type [place] vs. transplanted heart: [place] heart Associated angina: angina presence unspecified Qualified Code(s): I25.10 - Atherosclerotic heart disease of [place] coronary artery without angina pectoris (4) Hypertension Current Visit: Yes Status: Chronic Assessment and plan: controlled, continue valsartan, amlodipine Qualifiers: Hypertension type: essential hypertension Qualified Code(s): I10 - Essential (primary) hypertension (5) DVT prophylaxis Current Visit: Yes Status: Acute Assessment and plan: heparin sc. - Time Spent With Patient less than 15 minutes - Subjective Interval history: Patient awake and alert. Not in any distress. Denies chest pain or shortness of breath. Continues to be bradycardic. LHC revealed severe three-vessel disease. Cardiothoracic surgery has been consulted. Patient is scheduled for CABG on Friday. Permanent pacemaker will be placed before discharge as well. No other acute events or complaints. - Constitutional Vitals: Temp Pulse Resp BP Pulse Ox 97.8 F 47 16 160/67 99 10/19/16 11:29 10/19/16 11:31 10/19/16 11:29 10/19/16 11:29 10/19/16 11:29 General appearance: Present: cooperative, A&O X 3, pleasant, no acute distress, answers questions appropriately - Head Head exam: Present: atraumatic - ENT ENT exam: Present: mucous membranes moist - Neck Neck exam general surgery: Present: supple - Respiratory Respiratory exam: Present: CTAB. Absent: rhonchi, wheezes - Cardiovascular Cardiovascular exam: Present: bradycardia, +S1, +S2 - GI/Abdominal GI/Abdominal exam: Present: soft. Absent: guarding, tenderness - Extremities Exam Extremities exam: Present: radial pulses palpable and symetrical. Absent: cyanotic, pedal edema - Neurological Exam Neurological exam: Present: alert, oriented X3, no focal deficits Internal Medicine: Result - Labs CBC & Chem 7: 10/16/16 04:11 10/16/16 04:11 - ABG Interpretation ABG results: PT/INR, D-dimer PT 11.9 Seconds (9.4-12.1) 10/15/16 05:10 Consult Discharge Plan - Plan Referrals: Aparna Dawson BLEACH PACKER [Advanced Practice Nurse] - 10/25/16 10:00 am
[2016-10-20] MEDS: *HR* Heparin 5,000 UNIT/ML VIAL SQ SCH (04:48)
[2016-10-20] MEDS: *HR* LORazepam 0.5 MG TABLET PO PRN ×2 (04:48→23:28)
[2016-10-20 05:05] LABS: Basophils % 0.6 %; Eosinophils # 0.2 K/mcL (0.0-0.6); Eosinophils % 2.4 %; Hemoglobin 13.7 g/dL (12.9-16.9); Immature Granulocytes % 0.6 % (0-4); Lymphocytes # 1.8 K/mcL (0.6-4.6); Lymphocytes % 29.9 %; Mean Corpuscular HGB Conc 34.3 g/dL (31.6-35.5); Mean Corpuscular Hemoglobin 30.7 pg (28.0-33.3); Mean Corpuscular Volume 89.7 fL (83.0-100.0); Mean Platelet Volume 10.4 fL (9.4-12.4); Monocytes # 0.7 K/mcL (0.0-1.3); Monocytes % 10.7 %; Neutrophils # 3.4 K/mcL (1.6-8.9); Platelet Count 206 K/mcL (140-400); Red Blood Count 4.46 M/mcL (4.19-5.50); Red Cell Distribution Width 11.9 % (11.5-14.5); Segmented Neutrophils % 55.8 %
[2016-10-20 05:07] LABS: BUN/Creatinine Ratio 13 (6-26); Blood Urea Nitrogen 11 mg/dL (8-26); Calcium 9.1 mg/dL (8.6-10.8); Carbon Dioxide 27 mEq/L (19-29); Chloride 101 mEq/L (98-109); Glucose 115 mg/dL (70-99); Osmolality,Calculated 282 (280-300); Potassium 4.6 mEq/L (3.5-4.5); Sodium 136 mEq/L (136-145); eGFR For African Americans > 60 (> 60); eGFR For Non-African Americans > 60 (> 60)
[2016-10-20] MEDS: amLODIPine 5 MG TABLET PO SCH (07:55)
[2016-10-20] MEDS: Aspirin 81 MG TAB.CHEW PO SCH (07:55)
[2016-10-20] MEDS: Valsartan 160 MG TABLET PO SCH (07:55)
--- NOTE | 2016-10-20 09:21 | Cardiothoracic Progress Note ---
Date of Encounter: 10/20/16 Time of Encounter: 09:19 - Assessment and plan (1) CAD (coronary artery disease) Current Visit: Yes Status: Chronic Open heart surgery is scheduled for tomorrow. We will place temporary pacing wires at the time of surgery. He has no questions. He will receive a permanent pacemaker prior to discharge. Qualifiers: Coronary Disease-Associated Artery/Lesion type: unspecified vessel or lesion type [place] vs. transplanted heart: [place] heart Associated angina: angina presence unspecified Qualified Code(s): I25.10 - Atherosclerotic heart disease of [place] coronary artery without angina pectoris - Subjective Interval history: The patient complains of mild episodic chest pain. Vital Signs, Last 4 Hours Temp Pulse Resp BP Pulse Ox 10/20/16 07:58 41 10/20/16 07:50 98.9 F 39 18 137/82 98 Oxgyen Flow Rate Oxygen Flow Rate (LPM) 2 Clinical Data, last 8 Hours Output, Urine Amount 450 Output, Urine Amount 475 Weight 10/18/16 10/19/16 10/20/16 23:59 23:59 23:59 Weight 93.8 kg 94.3 kg Lungs are clear to percussion and auscultation. Heart is in a sinus bradycardia. - Labs 10/20/16 04:35 10/20/16 04:35 Lab Results, Last 24 hours 10/20/16 10/20/16 04:35 04:35 WBC 6.2 Hgb 13.7 Hct 40.0 Plt Count 206 Sodium 136 Potassium 4.6 H Chloride 101 Carbon Dioxide 27 BUN 11 Creatinine 0.85 Glucose 115 H Calcium 9.1 Consult Discharge Plan - Plan Referrals: Aparna Dawson AUTOMOBILE PARKER [Advanced Practice Nurse] - 10/25/16 10:00 am
--- NOTE | 2016-10-20 11:19 | Internal Med Progress Note ---
Date of Encounter: 10/20/16 Time of Encounter: 09:45 - Assessment and plan (1) Mobitz type 2 second degree AV block Current Visit: Yes Status: Acute Assessment and plan: HR now ~ 40, improved, BB on hold, cardiology following, PPM implant after CABG prior to discharge (2) Symptomatic bradycardia Current Visit: Yes Status: Acute Assessment and plan: avoid AV garland blockers. Needs PPM before discharge (3) CAD (coronary artery disease) Current Visit: Yes Status: Chronic Assessment and plan: Hx of PCI to RCA and LCx in 2008 at outside facility. ASA, Statin. No BB due to bradycardia and Mobitz type II heart block. Heart cath shows severe three-vessel disease. Cardiothoracic surgery has been consulted and patient is scheduled for CABG tomorrow. Dr. Centeno has evaluated the patient Qualifiers: Coronary Disease-Associated Artery/Lesion type: unspecified vessel or lesion type [place] vs. transplanted heart: [place] heart Associated angina: angina presence unspecified Qualified Code(s): I25.10 - Atherosclerotic heart disease of [place] coronary artery without angina pectoris (4) Hypertension Current Visit: Yes Status: Chronic Assessment and plan: controlled, continue valsartan, amlodipine Qualifiers: Hypertension type: essential hypertension Qualified Code(s): I10 - Essential (primary) hypertension (5) DVT prophylaxis Current Visit: Yes Status: Acute Assessment and plan: heparin sc - Time Spent With Patient less than 15 minutes - Subjective Interval history: Patient awake and alert. Not in any distress. Denies chest pain or shortness of breath. Continues to be bradycardic. LHC revealed severe three-vessel disease. Cardiothoracic surgery following. Patient is scheduled for CABG tomorrow. Permanent pacemaker will be placed before discharge as well. No other acute events or complaints. - Constitutional Vitals: Temp Pulse Resp BP Pulse Ox 98.9 F 41 18 137/82 98 10/20/16 07:50 10/20/16 07:58 10/20/16 07:50 10/20/16 07:50 10/20/16 07:50 General appearance: Present: cooperative, A&O X 3, pleasant, no acute distress, answers questions appropriately - Head Head exam: Present: atraumatic - Neck Neck exam general surgery: Present: supple - Respiratory Respiratory exam: Present: CTAB. Absent: rhonchi, wheezes - Cardiovascular Cardiovascular exam: Present: bradycardia, +S1, +S2 - GI/Abdominal GI/Abdominal exam: Present: soft. Absent: guarding, tenderness - Extremities Exam Extremities exam: Present: radial pulses palpable and symetrical. Absent: cyanotic, pedal edema - Neurological Exam Neurological exam: Present: alert, oriented X3, no focal deficits Internal Medicine: Result - Labs CBC & Chem 7: 10/20/16 04:35 10/20/16 04:35 Labs: Short CBC 10/20/16 Range/Units 04:35 WBC 6.2 (4.3-11.1) K/mcL Hgb 13.7 (12.9-16.9) g/dL Hct 40.0 (37.5-50.1) % Plt Count 206 (140-400) K/mcL Neutrophils # 3.4 (1.6-8.9) K/mcL BMP 10/20/16 04:35 Sodium 136 Potassium 4.6 H Chloride 101 Carbon Dioxide 27 BUN 11 Creatinine 0.85 Glucose 115 H Calcium 9.1 - ABG Interpretation ABG results: PT/INR, D-dimer PT 11.9 Seconds (9.4-12.1) 10/15/16 05:10 Consult Discharge Plan - Plan Referrals: Aparna Dawson GAMMA RAY OPERATOR [Advanced Practice Nurse] - 10/25/16 10:00 am
--- NOTE | 2016-10-20 20:01 | Event Note ---
Date of Encounter: 10/20/16 Time of Encounter: 19:57 I was paged as patient has heart rate of 30s and EKG reveals 3rd degree AV block Patient evaluated at bedside Reports intermittent lightheadedness. No CP, SOB CTAB. Bradycardia present. Oriented x 3. No acute distress EKG reviewed personally - AV dissociation with Idioventricular escape rhythm consistent with 3rd degree AV block Chart reviewed. Patient to undergo CABG tomorrow with transvenous pacemaker during surgery with PPM later on during current hospitalization A/P: 1. Percutaneous pacemaker pads with ZOLL at bedside. No indication for emergent pacing now as the patient is stable. Will monitor for AMS, hypotension etc If he becomes unstable, will consider percutaneous pacer vs dopamine gtt and call to Interventional cardiology for transvenous pacemaker placement.
[2016-10-20] MEDS: Chlorhexidine Rinse 15 ML MOUTHWASH MM SCH (21:18)
[2016-10-21] MEDS ORDERED: *HR* Norepinephrine 4 MG/4 ML VIAL IVC ONE (06:46)
[2016-10-21] MEDS ORDERED: *HR* Phenylephrine 10 MG/ML VIAL ONE (06:46)
[2016-10-21] MEDS ORDERED: *HR* Rocuronium Bromide 50 MG/5 ML VIAL ONE (06:46)
[2016-10-21] MEDS ORDERED: Protamine Sulfate 250 MG/25 ML VIAL IVP ONE (06:47)
[2016-10-21] MEDS ORDERED: *HR* Etomidate 20 MG/10 ML AMPUL IVP ONE (06:47)
[2016-10-21] MEDS ORDERED: Famotidine 20 MG/2 ML VIAL ONE (06:47)
[2016-10-21] MEDS ORDERED: Tranexamic Acid 1,000 MG/10 ML VIAL ONE ×2 (06:47→09:32)
[2016-10-21] MEDS ORDERED: *HR* Midazolam HCl 5 MG/5 ML VIAL IVP ONE (06:53)
[2016-10-21] MEDS ORDERED: *HR* FentaNYL (PF) 1,000 MCG/20 ML VIAL ONE (06:53)
[2016-10-21] MEDS ORDERED: Nitroglycerin 25 MG/250 ML INFUS..BTL IVC ONE ×2 (06:57→09:15)
[2016-10-21] MEDS ORDERED: NiCARdipine 2.5 MG/10 ML Syringe IVPB ONE (06:58)
[2016-10-21] MEDS ORDERED: ceFAZolin 2,000 MG in D5% in Water 100 ML IVPB ONE (07:00)
[2016-10-21] MEDS ORDERED: Verapamil 5 MG/2 ML VIAL ONE (07:15)
--- NOTE | 2016-10-21 07:18 | Anesthesia Evaluation PreOp ---
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 HX Other Medical History: Denies Any Significant HX Anesthesia History: No Prior Anesthetic Complications, Past Anesthesia (Right inguinal hernia) Alcohol Use: occasionally Drug use: none Medications and Allergies Aspirin 81 mg PO DAILY 10/15/16 [History] Cyanocobalamin (Vitamin B-12) [Vitamin B-12] 1,000 mcg SL DAILY 10/15/16 [ History] Flaxseed Oil [[place]-3 Flaxseed Oil] 1,000 mg PO DAILY 10/15/16 [History] Glucosamine HCl/Chondr Telles A Na [[facility]vs Glucosamine-Chondr Tablet] 1 each PO DAILY 10/15/16 [History] LORazepam [Ativan] 1 mg PO HS PRN 10/15/16 [History] Metoprolol [Lopressor] 25 mg PO BID 10/15/16 [History] Mv-Mn/FA/Vit K/Lycop/Lut/Coq10 [Daily Multivitamin Capsule] 1 each PO DAILY 10/26 [History] [place]-3/Dha/Epa/Fish Oil [Fish Oil 1,000 mg Softgel] 1 each PO DAILY 10/15/16 [ History] Potassium 99 mg PO DAILY 10/15/16 [History] Rosuvastatin Calcium [Crestor] 10 mg PO HS 10/15/16 [History] Sildenafil Citrate [Revatio] 20 mg PO DAILY 10/15/16 [History] Valsartan/Hydrochlorothiazide [Diovan Hct 320-12.5 mg Tab] 1 each PO DAILY 10/15 [History] Vitamin E 200 unit PO DAILY 10/15/16 [History] amLODIPine [Norvasc] 5 mg PO DAILY 10/15/16 [History] Allergies Diclofenac [From Voltaren] Adverse Reaction (Verified 10/15/16 10:55) Abdominal Pain - Meds/Allergy Pre-op Review Medications Reviewed: Yes Allergies Reviewed: Yes Beta Blockers on Current Med List: No Anesthesia Results - Labs 10/20/16 04:35 10/20/16 04:35 - Imaging EKG: report reviewed Additional studies: Echo shows EF55%, mild LV hypertrophy, mild dilated RV with normal function, mild MR, moderate ND Cath shows severe 2 vessel ds Anesthesia Exam Selected Entries 10/21/16 04:46 10/21/16 05:01 Temperature 98.2 F Pulse Rate 32 Respiratory Rate 15 Blood Pressure 149/65 O2 Sat by Pulse Oximetry 99 Oxygen Delivery Method Room Air Height: 74in Weight: 208lbs/ 96kg NPO (# of Hours): 8 Pain Scale: 0 Pain Scale Used: Numeric (1 - 10) - HEENT Pupil (Motor): EOMI Mallampati: II Teeth: Normal Oral Opening: Greater than 3 - OCCUPATIONAL MEDICINE PHYSICIAN LOC: Oriented OCCUPATIONAL MEDICINE PHYSICIAN Motor: Normal RUE, Normal LUE, Normal RLE, Normal LLE, Normal Face OCCUPATIONAL MEDICINE PHYSICIAN Sensory: Normal: RUE, LUE, RLE, LLE, Face - Cardiac Rhythm: Regular Murmur: None - Pulmonary Breath Sounds: bilateral Clear Respiratory Effort: Symmetrical Anesthesia Assess/Plan ASA Score: 4 Modified Reynold Scale for Level of Consciousness: Cooperative, oriented, and tranquil Anesthetic Plan: General Monitoring Plan: Standard Monitors, A-Line, PAC, ESME Recovery Plan: ICU (Discussed risk of GA, lines, ESME, and blood products, questions answered and agrees to proceed.)
[2016-10-21] MEDS ORDERED: *HR* Atropine Sulfate 0.4 MG/ML VIAL ONE ×2 (07:49→07:53)
[2016-10-21] MEDS ORDERED: *HR* EPINEPHrine 1 MG/ML AMPUL ONE (08:36)
--- NOTE | 2016-10-21 08:55 | Anesthesia Procedures ---
Date of Encounter: 10/21/16 Time of Encounter: 07:45 Procedures: Anesthesia - Arterial Line Consent obtained: written consent Time out performed: Yes Sedation: Versed (mg): 1 Sedation: Fentanyl (mcg): 50 Supplemental Oxygen via Nasal Cannula (L/min): 2 Local Anesthetic: Lidocaine 1% Amount of Anesthetic used (mls): 1 Size (Gauge): 20 Length (inches): 5 Technique Used: sterile prep, guide wire technique, direct puncture technique Post-Procedure: line taped into place, dry sterile dressing placed Patient tolerated procedure: well, no complications Complications: none Site: Radial L - Central Line Placement Right IJ Consent obtained: written consent Time out performed: Yes Patient placed on monitor/pulse ox: Yes MD prep: mask, gown, gloves Central line prep: Chlorhexidine scrub Ultrasound used for placement: Yes Technique: Seldinger Lumen Inserted: Introducer Post procedure: sutured in place, good blood return, all ports aspirated, flushed, capped Patient tolerated procedure: well, no complications Complications: none (introducer placed without issue. Unable to pass swan, probably due to bradycardia. Attempted x 3, unable to get RV signal. Dr Bryant is okay without one. Double lumen "slick" catheter placed and CVP transduced.)
[2016-10-21] MEDS ORDERED: 0.9 % Sodium Chloride 500 ML ONE (09:15)
[2016-10-21] MEDS ORDERED: niCARdipine 40 MG/200 ML MLS IVC ONE (09:16)
[2016-10-21] MEDS ORDERED: Albumin Human 5% 50.0 GM/1,000 ML VIAL ONE (09:16)
[2016-10-21] MEDS: Nitroglycerin 25 MG/250 ML INFUS..BTL IVC SCH ×2 (11:55→20:38)
[2016-10-21] MEDS ORDERED: Albumin Human 25% 25 GM/100 ML IV.SOLN IV ONE (12:00)
[2016-10-21] MEDS ORDERED: Tranexamic Acid 1,000 MG/10 ML VIAL IV ONE (12:00)
[2016-10-21] MEDS ORDERED: *HR* Magnesium Sulfate 2 GM/50 ML PIGGYBACK IVPB ONE (12:00)
[2016-10-21] MEDS ORDERED: Mannitol 25% vial 12.5 GM/50 ML VIAL IVPB ONE (12:00)
[2016-10-21] MEDS ORDERED: *HR* Heparin 10,000 UNIT/10 ML VIAL IVP ONE (12:00)
[2016-10-21] MEDS ORDERED: *HR* Phenylephrine 10 MG/ML VIAL IVC ONE (12:00)
[2016-10-21] MEDS ORDERED: Lidocaine 2% Syringe 100 MG/5 ML IVP ONE (12:00)
[2016-10-21] MEDS ORDERED: *HR* Promethazine 25 MG/ML VIAL IVP PRN (12:07)
[2016-10-21] MEDS ORDERED: Insulin Regular, Human 100 UNIT/ML IV PRN (12:07)
[2016-10-21] MEDS ORDERED: Potassium Chloride 40 MEQ/200 ML BAG IVPB PRN (12:07)
[2016-10-21] MEDS ORDERED: *HR* Dextrose 50 % in Water (Syg) 50 ML SYRINGE IVP PRN (12:07)
--- NOTE | 2016-10-21 12:11 | Anesthesia Evaluation PreOp ---
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 Other Medical History: Denies Any Significant HX Alcohol Use: occasionally Drug use: none Medications and Allergies Aspirin 81 mg PO DAILY 10/15/16 [History] Cyanocobalamin (Vitamin B-12) [Vitamin B-12] 1,000 mcg SL DAILY 10/15/16 [ History] Flaxseed Oil [[place]-3 Flaxseed Oil] 1,000 mg PO DAILY 10/15/16 [History] Glucosamine HCl/Chondr Telles A Na [Cvs Glucosamine-Chondr Tablet] 1 each PO DAILY 10/15/16 [History] LORazepam [Ativan] 1 mg PO HS PRN 10/15/16 [History] Metoprolol [Lopressor] 25 mg PO BID 10/15/16 [History] Mv-Mn/FA/Vit K/Lycop/Lut/Coq10 [Daily Multivitamin Capsule] 1 each PO DAILY 10/26 [History] [place]-3/Dha/Epa/Fish Oil [Fish Oil 1,000 mg Softgel] 1 each PO DAILY 10/15/16 [ History] Potassium 99 mg PO DAILY 10/15/16 [History] Rosuvastatin Calcium [Crestor] 10 mg PO HS 10/15/16 [History] Sildenafil Citrate [Revatio] 20 mg PO DAILY 10/15/16 [History] Valsartan/Hydrochlorothiazide [Diovan Hct 320-12.5 mg Tab] 1 each PO DAILY 10/15 [History] Vitamin E 200 unit PO DAILY 10/15/16 [History] amLODIPine [Norvasc] 5 mg PO DAILY 10/15/16 [History] Allergies Diclofenac [From Voltaren] Adverse Reaction (Verified 10/15/16 10:55) Abdominal Pain - Meds/Allergy Pre-op Review Medications Reviewed: Yes Allergies Reviewed: Yes Beta Blockers on Current Med List: No Anesthesia Results - Labs 10/20/16 04:35 10/20/16 04:35 Anesthesia Exam - HEENT Pupil (Motor): EOMI Mallampati: II Teeth: Normal Oral Opening: Greater than 3 - DOCK WORKER LOC: Oriented DOCK WORKER Motor: Normal RUE, Normal LUE, Normal RLE, Normal LLE, Normal Face DOCK WORKER Sensory: Normal: RUE, LUE, RLE, LLE, Face - Cardiac Rhythm: Regular Murmur: None - Pulmonary Breath Sounds: bilateral Clear Respiratory Effort: Symmetrical
[2016-10-21] MEDS ORDERED: Insulin Human Regular 100 UNIT in 0.9 % Sodium Chloride 100 ML IVC SCH (12:15)
[2016-10-21 12:18] LABS: ABG Base Excess 0.1 mEq/L (-2.0 to 3.0); ABG HCO3 25.4 mEQ/L (21-27); ABG Oxygen Saturation 100 % (95-98); ABG PCO2 43 mmHg (35-45); ABG PO2 166 mmHg (85-104); ABG TCO2 26.7 mEq/L (20-26); Blood Gas FiO2 70 %
[2016-10-21 12:20] LABS: ABG PH 7.38 pH Units (7.32-7.45); Basophils # 0.1 K/mcL (0.0-0.2); Basophils % 0.3 %; Eosinophils # 0.2 K/mcL (0.0-0.6); Eosinophils % 0.9 %; Hematocrit 32.9 % (37.5-50.1); Hemoglobin 11.5 g/dL (12.9-16.9); Immature Granulocytes % 0.9 % (0-4); Lymphocytes % 12.4 %; Mean Corpuscular Hemoglobin 30.8 pg (28.0-33.3); Mean Corpuscular Volume 88.2 fL (83.0-100.0); Mean Platelet Volume 10.2 fL (9.4-12.4); Monocytes # 1.1 K/mcL (0.0-1.3); Monocytes % 6.6 %; Neutrophils # 12.8 K/mcL (1.6-8.9); Platelet Count 103 K/mcL (140-400); Red Blood Count 3.73 M/mcL (4.19-5.50); Red Cell Distribution Width 11.7 % (11.5-14.5); Segmented Neutrophils % 78.9 %
[2016-10-21 12:22] LABS: INR 1.5; Prothrombin Time 16.3 Seconds (9.4-12.1)
[2016-10-21 12:24] LABS: Activated Partial Thrombo Time 28.7 Seconds (26.0-36.0)
--- NOTE | 2016-10-21 12:27 | Operative Note ---
Date of procedure: 10/21/16 Procedure in Detail: Preoperative diagnosis. Coronary artery disease. Postoperative diagnosis. Same. Procedures. Coronary artery bypass grafting 2 with the left internal mammary artery to the LAD and a saphenous vein graft to the circumflex. Surgeon. Dr. Carmine Bryant. Asst. Amos Villarreal. Anesthesia. Dr. Galo Song. The patient is a 70-year-old gentleman who presented with symptomatic heart block, bradycardia and angina. Cardiac catheterization revealed severe coronary artery disease and he was referred for surgery. He was brought to the operating room where he underwent a general anesthetic and was prepped and draped in standard fashion. The right greater saphenous vein was harvested from below the right knee to the right mid thigh. This was done through 2 small incisions using the scope. These incisions were subsequently closed with a deep layer of 0 Vicryl and a 2-0 Vicryl subcuticular stitch. A standard median sternotomy was performed. During this time, I did open the pericardium and place 2 ventricular pacing wires. The patient was paced in the VVI mode at a rate of 80. The standard sternal broadcast designer was removed and the left internal mammary artery retractor was inserted. The left internal mammary artery is harvested in standard fashion using the Bovie electrocoagulation. This was found to be inadequate vessel with adequate pulse and flow. Following this, the mammary retractor was removed and the standard sternal broadcast designer was reinserted. Pericardium was opened in the midline and suspended with 2-0 silk stay sutures. Double purse string of 20 Surgilon was placed in the aorta for aortic cannulation site. A purse string of 20 Surgilon was placed in the right atrial appendage for the venous uptake. The patient was heparinized. The aorta was cannulated without difficulty. 2 stage venous uptake cannula was inserted through the right atrial appendage. A pursestring of 3-0 silk was placed in the aorta and the cardioplegia needle was inserted through here. The antegrade cardioplegia needle was inserted through here. This was also used as an active and passive aortic vent. The patient was placed on cardio pony bypass and cooled to 34.5. At this point, the aorta was crossclamped and a liter of antegrade cardioplegia was given. Topical cooling with iced saline slush was also done. Attention was first turned to the circumflex. The distal circumflex or obtuse marginal branch #2 was dissected free with the Livingston blade and opened with a Livingston blade and the Terrell scissors. It had a lumen of 1-1/2 mm and was relatively free of disease. A standard end-to-side anastomosis was constructed using the saphenous vein and a 7-0 Prolene. Following this, the patient received an additional dose of antegrade cardioplegia and topical cooling with iced saline slush. Mammary pedicle was harvested. Tonsil clamp was placed distally and was divided with the Metzenbaum scissors. Distal end was tied off with 2-0 silk suture. Proximal end was trimmed and brought into the wound. The LAD was dissected free with the Livingston blade and opened with a Livingston blade and the Terrell scissors. This had a lumen of 1-1/2 mm and was relatively free of disease. A standard end-to-side anastomosis was constructed using the mammary artery and a 7-0 Prolene. When this was completed, the previously placed bulldog clamp was removed and hemostasis was good. The pedicle was tacked to the surface of the heart using 2 interrupted 5-0 silk sutures. Cross-clamp was removed and rewarming was begun. Total cross-clamp time was 30 minutes. A side-biting clamp was placed on the aorta and the cardioplegia needle was removed area a hole was made in the aorta using the Livingston blade and the 4.5 mm aortic punch. A standard end-to-side proximal anastomosis was constructed using the saphenous vein and a 5-0 Prolene. When this was completed, side biting clamp was removed. The graft was de-aired using a #25-gauge needle and the previously placed bulldog clamp was removed. Distal anastomoses were inspected and found to be hemostatic. Proximal anastomosis was marked with a marker from [employer]. Repair of atrial and ventricular pacing wires was left. The patient was paced in the DDD mode. 3 chest tubes were left. A 32 right angle chest tube the left pleural space. A 32 angle chest tube to the pericardial well. A 42 mediastinal chest tube. The patient was weaned from bypass requiring no pressors for support. He was decannulated and protamine was given. Hemostasis was good and the hemodynamics were good. Pericardium was loosely closed with interrupted 2-0 silk sutures. Sternum was closed with #7 sternal wires in simple and [id number] fashion. Fascia was run with #1 Vicryl. Subcutaneous tissues with a 2-0 Vicryl. Skin was closed with a 3-0 Vicryl subcuticular stitch. The patient tolerated the procedure well and was returned to intensive care unit in satisfactory and stable condition. Total bypass time was 60 minutes. Total cross-clamp time was 30 minutes. He been cooled to 34.5.
[2016-10-21 12:28] LABS: BUN/Creatinine Ratio 14 (6-26); Blood Urea Nitrogen 13 mg/dL (8-26); Calcium 8.5 mg/dL (8.6-10.8); Carbon Dioxide 24 mEq/L (19-29); Chloride 104 mEq/L (98-109); Glucose 118 mg/dL (70-99); Magnesium 2.3 mg/dL (1.6-2.6); Osmolality,Calculated 281 (280-300); Potassium 4.5 mEq/L (3.5-4.5); Sodium 135 mEq/L (136-145); eGFR For African Americans > 60 (> 60); eGFR For Non-African Americans > 60 (> 60)
[2016-10-21] MEDS: Aspirin 81 MG TAB.CHEW PO SCH (12:42)
[2016-10-21] MEDS: Valsartan 160 MG TABLET PO SCH (12:43)
[2016-10-21] MEDS: Chlorhexidine Rinse 15 ML MOUTHWASH MM SCH ×2 (12:43→20:03)
[2016-10-21] MEDS: amLODIPine 5 MG TABLET PO SCH (12:44)
[2016-10-21] MEDS: 0.9 % Sodium Chloride 1,000 ML IVC SCH (12:47)
[2016-10-21] MEDS: *HR* Morphine 2 MG/ML SYRINGE IVP PRN ×4 (13:09→20:03)
[2016-10-21] MEDS: niCARdipine 40 MG/200 ML MLS IVC SCH ×2 (13:34→20:38)
[2016-10-21] MEDS: *HR* OxyCODONE/APAP 5/325 TABLET PO PRN ×2 (14:21→18:51)
[2016-10-21 15:34] LABS: ABG Base Excess -0.7 mEq/L (-2.0 to 3.0); ABG HCO3 24.2 mEQ/L (21-27); ABG Oxygen Saturation 96 % (95-98); ABG PCO2 40 mmHg (35-45); ABG PO2 86 mmHg (85-104); ABG TCO2 25.4 mEq/L (20-26)
[2016-10-21 15:35] LABS: Blood Gas FiO2 40 %
[2016-10-21] MEDS: ceFAZolin 2,000 MG in D5% in Water 100 ML IVPB SCH (15:36)
[2016-10-21 15:37] LABS: ABG PH 7.39 pH Units (7.32-7.45)
--- NOTE | 2016-10-21 16:36 | Electrocardiograph Report ---
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
[2016-10-21 17:12] LABS: ABG Base Excess 0.3 mEq/L (-2.0 to 3.0); ABG Glucose 103 mg/dL (60-95); ABG HCO3 24.6 mEQ/L (21-27); ABG Hematocrit 42 % (35-51); ABG Ionized Calcium 1.12 mmol/L (1.15-1.35); ABG Oxygen Saturation 99 % (95-98); ABG PCO2 38 mmHg (35-45); ABG PH 7.42 pH Units (7.32-7.45); ABG PO2 115 mmHg (85-104); ABG TCO2 25.8 mEq/L (20-26)
[2016-10-21 17:12] LABS: ABG Base Excess -0.2 mEq/L (-2.0 to 3.0); ABG Glucose 182 mg/dL (60-95); ABG HCO3 23.9 mEQ/L (21-27); ABG Hematocrit 29 % (35-51); ABG Ionized Calcium 1.01 mmol/L (1.15-1.35); ABG Oxygen Saturation 100 % (95-98); ABG PCO2 36 mmHg (35-45); ABG PH 7.43 pH Units (7.32-7.45); ABG PO2 266 mmHg (85-104)
[2016-10-21 17:12] LABS: ABG Base Excess -4.5 mEq/L (-2.0 to 3.0); ABG Glucose 144 mg/dL (60-95); ABG HCO3 20.2 mEQ/L (21-27); ABG Hematocrit 31 % (35-51); ABG Ionized Calcium 0.81 mmol/L (1.15-1.35); ABG Oxygen Saturation 98 % (95-98); ABG PCO2 35 mmHg (35-45); ABG PH 7.37 pH Units (7.32-7.45); ABG PO2 112 mmHg (85-104); ABG TCO2 21.3 mEq/L (20-26)
[2016-10-21 17:12] LABS: ABG Base Excess -2.5 mEq/L (-2.0 to 3.0); ABG Glucose 129 mg/dL (60-95); ABG HCO3 22.5 mEQ/L (21-27); ABG Hematocrit 29 % (35-51); ABG Oxygen Saturation 93 % (95-98); ABG PCO2 39 mmHg (35-45); ABG PH 7.37 pH Units (7.32-7.45); ABG PO2 68 mmHg (85-104); ABG TCO2 23.7 mEq/L (20-26)
[2016-10-21 17:12] LABS: ABG Base Excess -0.9 mEq/L (-2.0 to 3.0); ABG Glucose 210 mg/dL (60-95); ABG HCO3 23.4 mEQ/L (21-27); ABG Hematocrit 27 % (35-51); ABG Ionized Calcium 0.95 mmol/L (1.15-1.35); ABG Oxygen Saturation 100 % (95-98); ABG PCO2 36 mmHg (35-45); ABG PH 7.42 pH Units (7.32-7.45); ABG PO2 444 mmHg (85-104); ABG TCO2 24.5 mEq/L (20-26)
[2016-10-22] MEDS: ceFAZolin 2,000 MG in D5% in Water 100 ML IVPB SCH (00:02)
[2016-10-22] MEDS: *HR* LORazepam 0.5 MG TABLET PO PRN ×2 (00:07→23:22)
[2016-10-22] MEDS: 0.9 % Sodium Chloride 1,000 ML IVC SCH ×2 (02:06→13:15)
[2016-10-22] MEDS: *HR* Morphine 2 MG/ML SYRINGE IVP PRN ×5 (03:39→19:27)
[2016-10-22 04:23] LABS: Basophils % 0.1 %; Hematocrit 34.5 % (37.5-50.1); Hemoglobin 12.1 g/dL (12.9-16.9); Immature Granulocytes % 0.4 % (0-4); Lymphocytes # 0.8 K/mcL (0.6-4.6); Lymphocytes % 4.7 %; Mean Corpuscular HGB Conc 35.1 g/dL (31.6-35.5); Mean Corpuscular Hemoglobin 31.3 pg (28.0-33.3); Mean Corpuscular Volume 89.1 fL (83.0-100.0); Mean Platelet Volume 10.4 fL (9.4-12.4); Monocytes # 1.7 K/mcL (0.0-1.3); Monocytes % 10.5 %; Neutrophils # 13.3 K/mcL (1.6-8.9); Platelet Count 143 K/mcL (140-400); Red Blood Count 3.87 M/mcL (4.19-5.50); Red Cell Distribution Width 12.1 % (11.5-14.5); Segmented Neutrophils % 84.3 %
[2016-10-22 04:38] LABS: INR 1.3
[2016-10-22] MEDS: Nitroglycerin 25 MG/250 ML INFUS..BTL IVC SCH ×3 (04:38→23:22)
[2016-10-22] MEDS: niCARdipine 40 MG/200 ML MLS IVC SCH ×3 (04:38→19:49)
[2016-10-22 04:41] LABS: Activated Partial Thrombo Time 27.3 Seconds (26.0-36.0)
[2016-10-22 04:45] LABS: Prothrombin Time 14.1 Seconds (9.4-12.1)
[2016-10-22 04:56] LABS: BUN/Creatinine Ratio 16 (6-26); Blood Urea Nitrogen 14 mg/dL (8-26); Calcium 8.2 mg/dL (8.6-10.8); Carbon Dioxide 24 mEq/L (19-29); Chloride 104 mEq/L (98-109); Glucose 149 mg/dL (70-99); Magnesium 1.9 mg/dL (1.6-2.6); Osmolality,Calculated 279 (280-300); Potassium 4.6 mEq/L (3.5-4.5); Sodium 133 mEq/L (136-145); eGFR For African Americans > 60 (> 60); eGFR For Non-African Americans > 60 (> 60)
[2016-10-22] MEDS: *HR* OxyCODONE/APAP 5/325 TABLET PO PRN ×4 (06:20→23:22)
--- NOTE | 2016-10-22 06:54 | Cardiothoracic Progress Note ---
Date of Encounter: 10/22/16 Time of Encounter: 06:52 - Assessment and plan (1) CAD (coronary artery disease) Current Visit: Yes Status: Chronic We will leave the chest tubes in until tomorrow. We will leave him in the ICU until he gets his permanent pacemaker implanted. He is presently paced in the DDD mode, but has a heart rate below 30 when the pacer was turned off. Qualifiers: Coronary Disease-Associated Artery/Lesion type: unspecified vessel or lesion type [place] vs. transplanted heart: [place] heart Associated angina: angina presence unspecified Qualified Code(s): I25.10 - Atherosclerotic heart disease of [place] coronary artery without angina pectoris - Subjective Interval history: The patient is extubated and on no drips. He has no complaints. Vital Signs, Last 4 Hours Temp Pulse Resp BP Pulse Ox 10/22/16 06:00 79 16 108/56 94 10/22/16 05:00 87 16 140/67 95 10/22/16 04:00 99 F 84 16 122/58 94 10/22/16 03:40 12 96 10/22/16 03:00 84 14 138/65 96 Oxgyen Flow Rate Oxygen Flow Rate (LPM) 3 Clinical Data, last 8 Hours Output, Chest Tube Drainage 5 Amount [Mediastinal #3] Output, Chest Tube Drainage 0 Amount [Mediastinal #3] Output, Chest Tube Drainage 10 Amount [Mediastinal #3] Output, Chest Tube Drainage 0 Amount [Mediastinal #3] Output, Chest Tube Drainage 0 Amount [Mediastinal #3] Output, Chest Tube Drainage 0 Amount [Mediastinal #3] Output, Chest Tube Drainage 10 Amount [Mediastinal #3] Output, Chest Tube Drainage 30 Amount [Mediastinal #3] Output, Chest Tube Drainage 20 Amount [Mediastinal #2] Output, Chest Tube Drainage 0 Amount [Mediastinal #2] Output, Chest Tube Drainage 20 Amount [Mediastinal #2] Output, Chest Tube Drainage 20 Amount [Mediastinal #2] Output, Chest Tube Drainage 0 Amount [Mediastinal #2] Output, Chest Tube Drainage 0 Amount [Mediastinal #2] Output, Chest Tube Drainage 20 Amount [Mediastinal #2] Output, Chest Tube Drainage 40 Amount [Mediastinal #2] Output, Chest Tube Drainage 20 Amount [Mediastinal #1] Output, Chest Tube Drainage 0 Amount [Mediastinal #1] Output, Chest Tube Drainage 0 Amount [Mediastinal #1] Output, Chest Tube Drainage 10 Amount [Mediastinal #1] Output, Chest Tube Drainage 0 Amount [Mediastinal #1] Output, Chest Tube Drainage 40 Amount [Mediastinal #1] Output, Chest Tube Drainage 10 Amount [Mediastinal #1] Output, Chest Tube Drainage 20 Amount [Mediastinal #1] Weight 10/20/16 10/21/16 10/22/16 23:59 23:59 23:59 Weight 94.3 kg 96.298 kg Lungs are clear to percussion and auscultation. Heart is in a normal sinus rhythm. All incisions are healing well without signs of infection and the sternum is stable. Chest tube drainage is minimal. - Labs 10/22/16 04:15 10/22/16 04:15 Lab Results, Last 24 hours 10/21/16 10/21/16 10/21/16 11:41 11:41 11:41 WBC 16.2 H D Hgb 11.5 L D Hct 32.9 L Plt Count 103 L INR 1.5 APTT 28.7 Sodium 135 L Potassium 4.5 Chloride 104 Carbon Dioxide 24 BUN 13 Creatinine 0.90 Glucose 118 H Calcium 8.5 L Magnesium 2.3 10/22/16 10/22/16 10/22/16 04:15 04:15 04:15 WBC 15.8 H Hgb 12.1 L Hct 34.5 L Plt Count 143 INR 1.3 APTT 27.3 Sodium 133 L Potassium 4.6 H Chloride 104 Carbon Dioxide 24 BUN 14 Creatinine 0.87 Glucose 149 H Calcium 8.2 L Magnesium 1.9 - VTE Documentation of Mechanical Device: Graduated compression elastic hosiery Consult Discharge Plan - Plan Referrals: Aparna Dawson PAVING INSPECTOR [Advanced Practice Nurse] -
[2016-10-22] MEDS: Chlorhexidine Rinse 15 ML MOUTHWASH MM SCH ×2 (08:46→19:27)
[2016-10-22] MEDS: Aspirin 81 MG TAB.CHEW PO SCH (08:46)
[2016-10-22] MEDS: Valsartan 160 MG TABLET PO SCH (08:46)
--- NOTE | 2016-10-22 10:03 | Internal Med Progress Note ---
<Kris Jeff - Last Filed: 10/22/16 16:05> Date of Encounter: 10/22/16 Time of Encounter: 09:10 - Assessment and plan (1) S/P CABG (coronary artery bypass graft) Current Visit: Yes Status: Acute Assessment and plan: Patient found to have severe two-vessel disease for which he underwent CABG on . Patient has bilateral chest tubes in place currently. Chest tubes are being managed by cardiothoracic surgery. Chest tube management per cardiothoracic surgery Continue daily aspirin Continue morphine as needed for chest pain Continue blood pressure control with nicardipine drip (2) Mobitz type 2 second degree AV block Current Visit: Yes Status: Acute Assessment and plan: Patient is externally paced currently with heart rate around 80. The pacemaker is turned off, heart rate immediately limits to below 30 and patient has return of symptoms. He will require pacemaker placement prior to discharge. Electrophysiology is following and plan for pacemaker placement now that CABG has been performed Continue to hold patient's beta garo Avoid garland blockers (3) Symptomatic bradycardia Current Visit: Yes Status: Acute Assessment and plan: Plan as above Avoid AV garland blockers. (4) Hypertension Current Visit: Yes Status: Chronic Assessment and plan: Patient mildly hypertensive with last blood pressure of 149/72. Continue to monitor vitals closely Continue nicardipine drip and valsartan Qualifiers: Hypertension type: essential hypertension Qualified Code(s): I10 - Essential (primary) hypertension (5) DVT prophylaxis Current Visit: Yes Status: Acute Assessment and plan: EPCDs - Subjective Interval history: The patient reports that he is feeling well this morning, but is having continued pain in his sternal area. He does not report any lightheadedness or diziness. He denies any shortness of breath, but admits that it is hard for him to take a deep breath. Denies fever/chills, denies nausea/vomiting. - Constitutional Vitals: Temp Pulse Resp BP Pulse Ox 97.7 F 81 16 149/72 97 10/22/16 07:42 10/22/16 10:00 10/22/16 10:00 10/22/16 10:00 10/22/16 10:00 General appearance: Present: cooperative, A&O X 3, pleasant, no acute distress, answers questions appropriately Exam: General: Cooperative, pleasant, no acute distress, alert and oriented 3, answers questions appropriately HEENT: Normocephalic, atraumatic, neck supple, trachea midline, Conjunctiva pink , sclera anicteric, EOMI Respiratory: No accessory muscle usage, decreased breath sounds bilaterally Cardiovascular: Regular rate and rhythm, S1 and S2 present, no murmurs/rubs/ gallops/clicks appreciated, externally paced, dressing placed over patient's sternal GI/abdominal: Nondistended, nontender, soft, normal bowel sounds, no peritoneal signs Extremities: No calf tenderness, noncyanotic, no pedal edema appreciated, warm, lower extremity pulses palpable and symmetrical Neurological: Alert and oriented 3, no facial droop, no focal deficits Skin: Dry, intact, normal color Internal Medicine: Result - Labs CBC & Chem 7: 10/22/16 04:15 10/22/16 04:15 Labs: Short CBC 10/21/16 10/22/16 Range/Units 11:41 04:15 WBC 16.2 H D 15.8 H (4.3-11.1) K/mcL Hgb 11.5 L D 12.1 L (12.9-16.9) g/dL Hct 32.9 L 34.5 L (37.5-50.1) % Plt Count 103 L 143 (140-400) K/mcL Neutrophils # 12.8 H 13.3 H (1.6-8.9) K/mcL BMP 10/21/16 10/22/16 11:41 04:15 Sodium 135 L 133 L Potassium 4.5 4.6 H Chloride 104 104 Carbon Dioxide 24 24 BUN 13 14 Creatinine 0.90 0.87 Glucose 118 H 149 H Calcium 8.5 L 8.2 L - ABG Interpretation ABG results: ABG ABG pH 7.39 pH Units (7.32-7.45) 10/21/16 15:26 ABG pCO2 40 mmHg (35-45) 10/21/16 15:26 ABG pO2 86 mmHg (85-104) 10/21/16 15:26 ABG O2 Saturation 96 % (95-98) 10/21/16 15:26 PT/INR, D-dimer PT 14.1 Seconds (9.4-12.1) H 10/22/16 04:15 - Impressions Impressions Chest X-Ray 10/21/16 12:07 IMPRESSION: Lines and tubes in satisfactory position. No evidence of pneumothorax. Recent postsurgical changes from open heart surgery. D/ / Bladimir Huang MD / Bladimir Huang MD Interpreting Provider: Bladimir Huang MD X-Ray 10/21/16 12:07 IMPRESSION: NG/OG tube in adequate position D/ / Mitul Gupta MD / Mitul Gupta MD Interpreting Provider: Mitul Gupta MD Chest X-Ray 10/22/16 04:00 IMPRESSION: Increasing left basilar atelectasis. D/ / Larry Chavira MD / Larry Chavira MD Interpreting Provider: Larry Chavira MD - VTE Documentation of Mechanical Device: Graduated compression elastic hosiery Consult Discharge Plan - Plan Referrals: Aparna Dawson, BLASTER HELPER [Advanced Practice Nurse] - <Carmen Gaffney E - Last Filed: 10/22/16 17:20> Date of Encounter: 10/22/16 - Constitutional Vitals: Temp Pulse Resp BP Pulse Ox 98.8 F 82 16 137/77 97 10/22/16 17:07 10/22/16 15:00 10/22/16 16:07 10/22/16 15:00 10/22/16 16:07 Internal Medicine: Result - Labs CBC & Chem 7: 10/22/16 04:15 10/22/16 04:15 Labs: Short CBC 10/22/16 Range/Units 04:15 WBC 15.8 H (4.3-11.1) K/mcL Hgb 12.1 L (12.9-16.9) g/dL Hct 34.5 L (37.5-50.1) % Plt Count 143 (140-400) K/mcL Neutrophils # 13.3 H (1.6-8.9) K/mcL BMP 10/22/16 04:15 Sodium 133 L Potassium 4.6 H Chloride 104 Carbon Dioxide 24 BUN 14 Creatinine 0.87 Glucose 149 H Calcium 8.2 L - ABG Interpretation ABG results: ABG ABG pH 7.39 pH Units (7.32-7.45) 10/21/16 15:26 ABG pCO2 40 mmHg (35-45) 10/21/16 15:26 ABG pO2 86 mmHg (85-104) 10/21/16 15:26 ABG O2 Saturation 96 % (95-98) 10/21/16 15:26 PT/INR, D-dimer PT 14.1 Seconds (9.4-12.1) H 10/22/16 04:15 - Impressions Impressions Chest X-Ray 10/22/16 04:00 IMPRESSION: Increasing left basilar atelectasis. D/ / Larry Chavira MD / Larry Chavira MD Interpreting Provider: Larry Chavira MD - Attending Attestation I examined this patient and reviewed laboratory, imaging and all diagnostic data. My medical decision-making was reviewed with Dr Kris Jeff - Resident Physician. I agree with the documented findings, disposition and treatment plan as described above.
[2016-10-22] MEDS ORDERED: Dextrose Gel 15 GM PO PRN ×2 (11:37)
[2016-10-22] MEDS ORDERED: D5% in Water 1,000 ML IVC PRN (11:37)
[2016-10-22] MEDS ORDERED: *HR* Dextrose 50 % in Water (Syg) 50 ML SYRINGE IVP PRN (11:37)
--- NOTE | 2016-10-22 14:26 | Anesthesia Evaluation Post Op ---
Date of Encounter: 10/22/16 Time of Encounter: 14:00 - Vital Signs Vital Signs: Selected Entries 10/21/16 04:46 10/22/16 12:23 10/22/16 14:00 Temperature 98.2 F 98.0 F Pulse Rate 32 90 Respiratory Rate 15 20 Blood Pressure 126/61 O2 Sat by Pulse Oximetry 97 Oxygen Flow Rate (LPM) 3 Oxygen Delivery Method Nasal Cannula - Lungs Lungs: Clear Ascult./Percussion - Airway Airway: Non-obstructed - Cardiovascular Regular Rate (Is pacer dependent, currently on temporary pacing and will require permanent pacing) - Mental Status Mental Status: Alert & Oriented, Answers Appropriately - Pain Pain Scale: 3 Pain Scale used: Numeric (1 - 10) - Nausea Vomiting Nausea Vomiting: Not Present - Hydration Hydration: Tolerates oral liquids Notes: 10/22/16 14:25 Patient will remain in the ICU until permanent pacer placed. No apparent anesthesia issues post op
--- NOTE | 2016-10-22 15:49 | Invasive Diagnostic Lab ---
Name: Franck Maldonado Date of Study: 10/17/2016 Date: 1945 Ht: 188.0 cm /74.0 in Medical Record#: [id number] Age: 70 Wt: 94.2 kg / 207.68 lb Account/Order#: [id number] Gender: Male BSA: 2.21 Order #: [id number] Fluoro Dose: 388 mGy BMI: 26.65 Procedure Physician: Kishore Ricardo MD, FACC Referring MD: Referring MD: Procedures Performed: LEFT HEART CATH Impressions: There is severe three vessel coronary artery disease including distal left main bifurcation The left ventricle is normal and has normal contractility EF 65% Recommendations: Optimal medical therapy of patient's disease. Aggressive risk factor modification. Suggest patient have Elective coronary artery bypass surgery. History/Risk Factors: syncope mobitz type II block bradycardia CAD DVT Hypertension Procedure Access obtained in the right Radial artery by percutaneous puncture Complications: None, None, None Contrast: Isovue 92ml Closure Device: Mechanical Compression Hemodynamics: Pressures Site Systolic/ A Wave Diastolic/ V Wave End Diastolic/ Mean HR AO 148 82 106 52 AO 119 80 97 55 AO 126 76 97 49 LV 137 8 14 47 LV 146 7 16 49 AO 152 69 98 50 LV Ventriculography Ejection Method: LV Gram Ejection Fraction: 65% Wall Motion: KYLE Anterobasal Normal Anterolateral Normal Apical: Normal Inferoapical Normal Inferobasal Normal Coronary Dominance: right Lesion Findings/Interventions * Left Main Coronary Artery There is a 50% stenosis in the distal LMCA. * Left Anterior Descending There is an ostial 60% stenosis There is a 70% stenosis in the Mid LAD. There is a 90% stenosis in the 1st Diagonal. * Circumflex There is an ostial 50% stenosis. There is a 90% stenosis in the Mid Circumflex after major OM bifurcation. * Right Coronary Artery There is a 40% stenosis in the Mid RCA. There is a 30% stenosis in the Right PDA. Updated by RT Gaby (R) on 10/22/2016 3:32:19 PM Kishore Ricardo MD, FACC electronically signed on 10/22/2016 3:44:23 PM with status of Final
[2016-10-22] MEDS: Insulin LISPRO 300 UNITS/3 ML VIAL SQ SCH ×2 (16:36→19:38)
[2016-10-23] MEDS: 0.9 % Sodium Chloride 1,000 ML IVC SCH ×2 (03:47→17:53)
[2016-10-23] MEDS: niCARdipine 40 MG/200 ML MLS IVC SCH ×3 (03:48→19:31)
[2016-10-23 04:30] LABS: Basophils % 0.1 %; Eosinophils % 0.1 %; Hematocrit 32.3 % (37.5-50.1); Hemoglobin 11.1 g/dL (12.9-16.9); Immature Granulocytes % 0.6 % (0-4); Lymphocytes % 5.7 %; Mean Corpuscular HGB Conc 34.4 g/dL (31.6-35.5); Mean Corpuscular Hemoglobin 31.1 pg (28.0-33.3); Mean Corpuscular Volume 90.5 fL (83.0-100.0); Mean Platelet Volume 11.1 fL (9.4-12.4); Monocytes # 1.6 K/mcL (0.0-1.3); Monocytes % 9.5 %; Neutrophils # 13.9 K/mcL (1.6-8.9); Platelet Count 129 K/mcL (140-400); Red Blood Count 3.57 M/mcL (4.19-5.50); Red Cell Distribution Width 11.9 % (11.5-14.5)
[2016-10-23 04:39] LABS: BUN/Creatinine Ratio 15 (6-26); Blood Urea Nitrogen 12 mg/dL (8-26); Calcium 8.4 mg/dL (8.6-10.8); Carbon Dioxide 23 mEq/L (19-29); Chloride 99 mEq/L (98-109); Glucose 177 mg/dL (70-99); Osmolality,Calculated 270 (280-300); Potassium 4.7 mEq/L (3.5-4.5); Sodium 128 mEq/L (136-145); eGFR For African Americans > 60 (> 60); eGFR For Non-African Americans > 60 (> 60)
--- NOTE | 2016-10-23 07:04 | Cardiothoracic Progress Note ---
Date of Encounter: 10/23/16 Time of Encounter: 07:02 - Assessment and plan (1) CAD (coronary artery disease) Current Visit: Yes Status: Chronic The chest tubes were removed. We will check a stat portable chest x-ray. We will discontinue his Garcia. He is okay to get his permanent pacemaker at any time. Qualifiers: Coronary Disease-Associated Artery/Lesion type: unspecified vessel or lesion type [place] vs. transplanted heart: [place] heart Associated angina: angina presence unspecified Qualified Code(s): I25.10 - Atherosclerotic heart disease of [place] coronary artery without angina pectoris - Subjective Interval history: The patient has no complaints and states that he slept well last night. Vital Signs, Last 4 Hours Pulse Resp BP Pulse Ox 10/23/16 06:00 91 17 129/74 95 10/23/16 05:00 92 17 132/74 95 10/23/16 04:26 17 95 10/23/16 04:00 87 18 134/74 96 Oxgyen Flow Rate Oxygen Flow Rate (LPM) 2 Clinical Data, last 8 Hours Output, Chest Tube Drainage 0 Amount [Mediastinal #3] Output, Chest Tube Drainage 0 Amount [Mediastinal #3] Output, Chest Tube Drainage 0 Amount [Mediastinal #2] Output, Chest Tube Drainage 0 Amount [Mediastinal #2] Output, Chest Tube Drainage 0 Amount [Mediastinal #2] Output, Chest Tube Drainage 0 Amount [Mediastinal #1] Output, Chest Tube Drainage 0 Amount [Mediastinal #1] Weight 10/21/16 10/22/16 10/23/16 23:59 23:59 23:59 Weight 96.298 kg 103.7 kg Lungs are clear to percussion and auscultation. Heart is in a paced rhythm in the DDD mode. All incisions are healing well without signs of infection and the sternum is stable. Chest tube drainage is minimal and there is no air leak. - Labs 10/23/16 04:00 10/23/16 04:00 Lab Results, Last 24 hours 10/23/16 10/23/16 04:00 04:00 WBC 16.6 H Hgb 11.1 L Hct 32.3 L Plt Count 129 L Sodium 128 L Potassium 4.7 H Chloride 99 Carbon Dioxide 23 BUN 12 Creatinine 0.80 Glucose 177 H Calcium 8.4 L - VTE Documentation of Mechanical Device: Graduated compression elastic hosiery Consult Discharge Plan - Plan Referrals: Dawson,Aparna A, ANNETTE [Advanced Practice Nurse] -
[2016-10-23] MEDS: Chlorhexidine Rinse 15 ML MOUTHWASH MM SCH ×2 (08:51→20:01)
[2016-10-23] MEDS: Aspirin 81 MG TAB.CHEW PO SCH (08:51)
[2016-10-23] MEDS: Valsartan 160 MG TABLET PO SCH (08:51)
[2016-10-23] MEDS: Insulin LISPRO 300 UNITS/3 ML VIAL SQ SCH ×4 (08:52→20:01)
[2016-10-23] MEDS: Nitroglycerin 25 MG/250 ML INFUS..BTL IVC SCH ×2 (08:54→16:19)
[2016-10-23] MEDS: Ondansetron 4 MG/2 ML VIAL IVP PRN ×3 (08:55→23:27)
--- NOTE | 2016-10-23 10:37 | Cardiology Progress Note ---
Date of Encounter: 10/23/16 Time of Encounter: 08:30 Assessment and Plan (1) Mobitz type 2 second degree AV block Current Visit: Yes Status: Acute Pt presented with dizziness, lightheadedness, presyncope and syncopal episode 3 weeks ago. HR reported to be 30s in ED, lowest HR on tele is 40s; betablocker (lopressor 25 BID) held since admission. ECG upon admission: HR 54 SR with LBBB QRS 188 ms QT/QTc 513/498 ms. Telemetry review: avg HR=48, intermittent Mobitz type II heart block noted on telemetry. Denies dizziness, pre-syncope/syncope as inpt. TTE 10/15/16: EF 55%, mild cLVH, mild LVDD, mild MR/TR, normal wall motion. BCU 10/15/16: bilateral minimal plaque [facility] 10/16/16: severe 3v CAD-- 50% LMCA, 50% mLAD, 90% 1st diagonal, 90% mLCx, 40% mRCA, and 30% R PDA----s/p CABG on 10/21/16. Continue to have underling 2:1 AV block, currently AV paced via epicardial wires. Plan for implant of dual chamber PPM tomorrow afternoon. Patient is agreeable to proceed. NPO after MN. (2) CAD (coronary artery disease) Current Visit: Yes Status: Chronic Hx of PCI to RCA and LCx in 2008 at outside facility. Severe 3v CAD per [facility] 10/17/16. s/p CABG on Friday, POD #2, with Dr. Bryant. Asa, statin. Consider resuming betablocker after PPM implant. Qualifiers: Coronary Disease-Associated Artery/Lesion type: unspecified vessel or lesion type [place] vs. transplanted heart: [place] heart Associated angina: angina presence unspecified Qualified Code(s): I25.10 - Atherosclerotic heart disease of [place] coronary artery without angina pectoris Discussion w patient/family: The assessment and plan as outlined above was discussed with the patient and/or family members who expressed understanding and agreement. All questions were answered. Thank you for involving us in the care of your patient. Please call with any questions. The patient was discussed and reviewed with Dr. Kee; Cardiology will sign-off , please re-consult when patient is ready from CT surgery standpoint to proceed with PPM. Subjective Principal diagnosis: 2:1 AVB, MVD Interval history: Seen and examined earlier this AM in the ICU. POD #2 s/p CABG, sitting up in the chair. CT x3 removed. Remains 100% paced, underlying rhythm 2:1 AVB. Denies chest pain or discomfort, reports nausea today. Objective Vital Signs, Last 4 Hours Temp Pulse Resp BP Pulse Ox 10/23/16 10:00 90 20 119/67 100 10/23/16 09:00 96 22 141/83 98 10/23/16 08:28 98.5 F 10/23/16 08:00 99 20 139/78 97 General: Conversant, No Apparent Distress HEENT: Atraumatic, Normocephaly Cardiac: Reg Rate and Rhythm, Normal S1 and S2 Lungs: Normal Breath Sounds Neuro: Alert and responsive Abdomen: Soft Skin: Other (midsternal dressing intact--no oozing noted. ) Extremities: No Edema, Normal Pulses Results 10/23/16 04:00 10/23/16 04:00 Lab Results 10/23/16 10/23/16 04:00 04:00 WBC 16.6 H Hgb 11.1 L Hct 32.3 L Plt Count 129 L Sodium 128 L Potassium 4.7 H Chloride 99 Carbon Dioxide 23 BUN 12 Creatinine 0.80 Glucose 177 H Calcium 8.4 L - Imaging and Cardiology Chest Xray: report reviewed Echo: report reviewed Cardiac cath: report reviewed Other Results: 24 hour tele: avg HR=89 paced. - EKG Interpretation EKG results cardiology: personally reviewed - VTE Documentation of Mechanical Device: Graduated compression elastic hosiery Consult Discharge Plan - Plan Referrals: Aparna Dawson, INSURANCE CLAIMS ANALYST [Advanced Practice Nurse] -
--- NOTE | 2016-10-23 16:36 | Internal Med Progress Note ---
Date of Encounter: 10/23/16 Time of Encounter: 16:34 - Assessment and plan (1) S/P CABG (coronary artery bypass graft) Current Visit: Yes Status: Acute Assessment and plan: Patient found to have severe two-vessel disease for which he underwent CABG on . Patient has bilateral chest tubes in place currently. Chest tubes were removed by cardiothoracic surgery on 10/23. per cardiothoracic surgery Continue daily aspirin Continue morphine as needed for chest pain (2) Mobitz type 2 second degree AV block Current Visit: Yes Status: Acute Assessment and plan: Patient is externally paced currently with heart rate around 80. The pacemaker is turned off, heart rate immediately limits to below 30 and patient has return of symptoms. Plan for PCM placement tomorrow. Continue to hold patient's beta garo Avoid garland blockers (3) Syncope Current Visit: Yes Status: Acute Qualifiers: Syncope type: unspecified Qualified Code(s): R55 - Syncope and collapse (4) Symptomatic bradycardia Current Visit: Yes Status: Acute Assessment and plan: Plan as above Avoid AV garland blockers. (5) Hypertension Current Visit: Yes Status: Chronic Assessment and plan: Bp better controlled at 116/76-142/70. Continue to monitor vitals closely Continue valsartan Qualifiers: Hypertension type: essential hypertension Qualified Code(s): I10 - Essential (primary) hypertension (6) Hyponatremia Current Visit: Yes Status: Acute Assessment and plan: sodium at 128. close monitor. check osmolality, uric acid. - Subjective Interval history: no chest pain. no shortness of breath. - Constitutional Vitals: Temp Pulse Resp BP Pulse Ox 98.4 F 90 15 142/70 95 10/23/16 15:47 10/23/16 14:00 10/23/16 15:25 10/23/16 14:00 10/23/16 15:25 General appearance: Present: cooperative, A&O X 3, pleasant, no acute distress, answers questions appropriately - Neck Neck exam general surgery: Present: supple, trachea midline - Respiratory Respiratory exam: Present: rhonchi - Cardiovascular Cardiovascular exam: Present: RRR - GI/Abdominal GI/Abdominal exam: Present: normal bowel sounds, soft. Absent: distended, tenderness - Back Exam Back exam: Absent: CVA tenderness (L), CVA tenderness (R) - Neurological Exam Neurological exam: Present: alert, oriented X3, no focal deficits, strengths equal and symetr throughout. Absent: facial droop, speech deficit Internal Medicine: Result - Labs CBC & Chem 7: 10/23/16 04:00 10/23/16 04:00 Labs: Short CBC 10/23/16 Range/Units 04:00 WBC 16.6 H (4.3-11.1) K/mcL Hgb 11.1 L (12.9-16.9) g/dL Hct 32.3 L (37.5-50.1) % Plt Count 129 L (140-400) K/mcL Neutrophils # 13.9 H (1.6-8.9) K/mcL BMP 10/23/16 04:00 Sodium 128 L Potassium 4.7 H Chloride 99 Carbon Dioxide 23 BUN 12 Creatinine 0.80 Glucose 177 H Calcium 8.4 L - ABG Interpretation ABG results: ABG ABG pH 7.39 pH Units (7.32-7.45) 10/21/16 15:26 ABG pCO2 40 mmHg (35-45) 10/21/16 15:26 ABG pO2 86 mmHg (85-104) 10/21/16 15:26 ABG O2 Saturation 96 % (95-98) 10/21/16 15:26 PT/INR, D-dimer PT 14.1 Seconds (9.4-12.1) H 10/22/16 04:15 - Impressions Impressions Chest X-Ray 10/23/16 07:06 IMPRESSION: Interval removal of left-sided chest tube. No significant change in low lung volumes and bibasilar atelectasis. No evidence of pneumothorax. D/ / 10/23/2016 11:11:47 Trevor Colorado MD / mauricio Interpreting Provider: Trevor Colorado MD - VTE Documentation of Mechanical Device: Graduated compression elastic hosiery Consult Discharge Plan - Plan Referrals: Aparna Dawson, SCHOOL PATROL [Advanced Practice Nurse] -
[2016-10-23] MEDS: *HR* LORazepam 0.5 MG TABLET PO PRN (23:27)
[2016-10-24] MEDS: Nitroglycerin 25 MG/250 ML INFUS..BTL IVC SCH ×2 (01:10→11:29)
[2016-10-24 04:42] LABS: Basophils % 0.2 %; Eosinophils # 0.1 K/mcL (0.0-0.6); Eosinophils % 0.4 %; Hemoglobin 10.7 g/dL (12.9-16.9); Immature Granulocytes % 0.4 % (0-4); Lymphocytes # 1.7 K/mcL (0.6-4.6); Lymphocytes % 12.1 %; Mean Corpuscular HGB Conc 34.5 g/dL (31.6-35.5); Mean Corpuscular Hemoglobin 31.1 pg (28.0-33.3); Mean Corpuscular Volume 90.1 fL (83.0-100.0); Mean Platelet Volume 11.2 fL (9.4-12.4); Monocytes # 1.1 K/mcL (0.0-1.3); Neutrophils # 10.8 K/mcL (1.6-8.9); Platelet Count 135 K/mcL (140-400); Red Blood Count 3.44 M/mcL (4.19-5.50); Red Cell Distribution Width 11.9 % (11.5-14.5); Segmented Neutrophils % 78.9 %
[2016-10-24 04:57] LABS: BUN/Creatinine Ratio 19 (6-26); Blood Urea Nitrogen 14 mg/dL (8-26); Calcium 7.9 mg/dL (8.6-10.8); Carbon Dioxide 22 mEq/L (19-29); Chloride 97 mEq/L (98-109); Glucose 135 mg/dL (70-99); Osmolality,Calculated 267 (280-300); Potassium 4.4 mEq/L (3.5-4.5); Sodium 127 mEq/L (136-145); eGFR For African Americans > 60 (> 60); eGFR For Non-African Americans > 60 (> 60)
[2016-10-24 04:58] LABS: Magnesium 1.7 mg/dL (1.6-2.6); Uric Acid 5.2 mg/dL (3.5-7.2)
[2016-10-24] MEDS: Chlorhexidine Rinse 15 ML MOUTHWASH MM SCH ×2 (07:48→21:27)
[2016-10-24] MEDS: niCARdipine 40 MG/200 ML MLS IVC SCH (07:49)
[2016-10-24] MEDS: 0.9 % Sodium Chloride 1,000 ML IVC SCH (07:49)
[2016-10-24] MEDS: Insulin LISPRO 300 UNITS/3 ML VIAL SQ SCH ×3 (07:53→21:28)
--- NOTE | 2016-10-24 08:19 | Cardiothoracic Progress Note ---
Date of Encounter: 10/24/16 Time of Encounter: 08:17 - Assessment and plan (1) CAD (coronary artery disease) Current Visit: Yes Status: Chronic The patient is scheduled to get a permanent pacemaker today. He can be transferred to the floor after this is done. Qualifiers: Coronary Disease-Associated Artery/Lesion type: unspecified vessel or lesion type [place] vs. transplanted heart: [place] heart Associated angina: angina presence unspecified Qualified Code(s): I25.10 - Atherosclerotic heart disease of [place] coronary artery without angina pectoris - Subjective Interval history: The patient complains of mild postoperative pain. Vital Signs, Last 4 Hours Pulse Resp BP Pulse Ox 10/24/16 06:00 91 17 122/71 95 10/24/16 05:00 81 17 114/66 95 Oxgyen Flow Rate Oxygen Flow Rate (LPM) 2 Clinical Data, last 8 Hours Output, Urine Amount 450 Output, Urine Amount 0 Weight 10/22/16 10/23/16 10/24/16 23:59 23:59 23:59 Weight 103.7 kg Lungs are clear to percussion and auscultation. Heart is paced in the DDD mode. All incisions are healing well without signs of infection and the sternum is stable. - Labs 10/24/16 04:00 10/24/16 04:00 Lab Results, Last 24 hours 10/24/16 10/24/16 10/24/16 04:00 04:00 04:00 WBC 13.7 H Hgb 10.7 L Hct 31.0 L Plt Count 135 L Sodium 127 L Potassium 4.4 Chloride 97 L Carbon Dioxide 22 BUN 14 Creatinine 0.75 Glucose 135 H Calcium 7.9 L Magnesium 1.7 - VTE Documentation of Mechanical Device: Graduated compression elastic hosiery Consult Discharge Plan - Plan Referrals: Aparna Dawson, VIDEO PRODUCTION INTERN [Advanced Practice Nurse] -
[2016-10-24] MEDS ORDERED: Vancomycin 1,000 MG VIAL IVPB ONE (10:00)
[2016-10-24] MEDS ORDERED: Vancomycin 1,500 MG in D5% in Water 250 ML IVPB ONE (11:00)
--- NOTE | 2016-10-24 14:23 | Pre-Sedation Evaluation ---
Pre-sedation evaluation - Pre-sedation checklist Date of procedure: 10/24/16 Procedure: permanent pacemaker Recent Vitals: Last Vital Signs Temp 98.1 F 10/24/16 07:50 Pulse 92 10/24/16 14:00 Resp 18 10/24/16 14:00 BP 119/84 10/24/16 14:00 Pulse Ox 95 10/24/16 14:00 H&P (including ROS) documented in medical record: Yes Previous reaction to sedatives/anesthetics: No Dietary Status: NPO after Midnight Airway Assessment: Patient can open mouth completely, TMJ function normal, Micrognathia (under-bite, receding chin) absent Dentition: No loose teeth or bridges Possible difficult airway: No ASA Classification *see protocol: CLASS II-Mild systemic disease Plan of Care: Pt appropriate candidate for procedure/moderate/conscious sedation , Risks/benefits of procedure/sedation discussed w/ patient/family
[2016-10-24] MEDS ORDERED: 0.9 % Sodium Chloride 500 ML ONE (14:57)
[2016-10-24] MEDS ORDERED: Water for inj. (sterile) 10 ML IV ONE (14:57)
[2016-10-24] MEDS ORDERED: D5% in Water (Mini-Bag+) 0 ML IVPB ONE (14:57)
[2016-10-24] MEDS ORDERED: *HR* FentaNYL (PF) 100 MCG/2 ML VIAL ONE (14:59)
[2016-10-24] MEDS ORDERED: *HR* Midazolam HCl 2 MG/2 ML VIAL ONE ×2 (14:59→15:35)
[2016-10-24] MEDS ORDERED: 0.9 % Sodium Chloride 1,000 ML ONE (14:59)
[2016-10-24] MEDS ORDERED: Vancomycin 1,000 MG VIAL ONE (15:19)
--- NOTE | 2016-10-24 15:58 | Internal Med Progress Note ---
Date of Encounter: 10/24/16 Time of Encounter: 08:00 - Assessment and plan (1) S/P CABG (coronary artery bypass graft) Current Visit: Yes Status: Acute Assessment and plan: Patient found to have severe two-vessel disease for which he underwent CABG on . Patient has bilateral chest tubes in place currently. Chest tubes were removed by cardiothoracic surgery on 10/23. per cardiothoracic surgery Continue daily aspirin Continue morphine as needed for chest pain (2) Mobitz type 2 second degree AV block Current Visit: Yes Status: Acute Assessment and plan: Patient is externally paced currently with heart rate around 80. The pacemaker is turned off, heart rate immediately limits to below 30 and patient has return of symptoms. Plan for PCM placement today. Continue to hold patient's beta garo Avoid garland blockers (3) Syncope Current Visit: Yes Status: Acute Qualifiers: Syncope type: unspecified Qualified Code(s): R55 - Syncope and collapse (4) Symptomatic bradycardia Current Visit: Yes Status: Acute Assessment and plan: Plan as above Avoid AV garland blockers. (5) Hypertension Current Visit: Yes Status: Chronic Assessment and plan: Bp better controlled at 116/76-142/70. Continue to monitor vitals closely Continue valsartan Qualifiers: Hypertension type: essential hypertension Qualified Code(s): I10 - Essential (primary) hypertension (6) Hyponatremia Current Visit: Yes Status: Acute Assessment and plan: sodium at 128. close monitor. check osmolality, uric acid. - Subjective Interval history: no chest pain. no shortness of breath. - Constitutional Vitals: Temp Pulse Resp BP Pulse Ox 98.1 F 92 18 119/84 95 10/24/16 07:50 10/24/16 14:00 10/24/16 14:00 10/24/16 14:00 10/24/16 14:00 General appearance: Present: cooperative, A&O X 3, pleasant, no acute distress, answers questions appropriately - Neck Neck exam general surgery: Present: supple, trachea midline. Absent: lymphadenopathy - Respiratory Respiratory exam: Present: CTAB - Cardiovascular Cardiovascular exam: Present: RRR - GI/Abdominal GI/Abdominal exam: Present: normal bowel sounds, soft. Absent: distended, tenderness - Extremities Exam Extremities exam: Absent: pedal edema - Back Exam Back exam: Absent: CVA tenderness (L), CVA tenderness (R) - Neurological Exam Neurological exam: Present: alert, oriented X3, no focal deficits, strengths equal and symetr throughout. Absent: facial droop, speech deficit Internal Medicine: Result - Labs CBC & Chem 7: 10/24/16 04:00 10/24/16 04:00 Labs: Short CBC 10/24/16 Range/Units 04:00 WBC 13.7 H (4.3-11.1) K/mcL Hgb 10.7 L (12.9-16.9) g/dL Hct 31.0 L (37.5-50.1) % Plt Count 135 L (140-400) K/mcL Neutrophils # 10.8 H (1.6-8.9) K/mcL BMP 10/24/16 04:00 Sodium 127 L Potassium 4.4 Chloride 97 L Carbon Dioxide 22 BUN 14 Creatinine 0.75 Glucose 135 H Calcium 7.9 L - ABG Interpretation ABG results: ABG ABG pH 7.39 pH Units (7.32-7.45) 10/21/16 15:26 ABG pCO2 40 mmHg (35-45) 10/21/16 15:26 ABG pO2 86 mmHg (85-104) 10/21/16 15:26 ABG O2 Saturation 96 % (95-98) 10/21/16 15:26 PT/INR, D-dimer PT 14.1 Seconds (9.4-12.1) H 10/22/16 04:15 - Impressions Impressions Chest X-Ray 10/23/16 07:06 IMPRESSION: Interval removal of left-sided chest tube. No significant change in low lung volumes and bibasilar atelectasis. No evidence of pneumothorax. D/ / 10/23/2016 11:11:47 Trevor Colorado MD / mauricio Interpreting Provider: Trevor Colorado MD - VTE Documentation of Mechanical Device: Graduated compression elastic hosiery Consult Discharge Plan - Plan Referrals: Aparna Dawson, EXPERIMENTAL ELECTRONICS DEVELOPER [Advanced Practice Nurse] -
[2016-10-24] MEDS ORDERED: D5% in Water 1,000 ML IVC PRN (17:22)
[2016-10-24] MEDS ORDERED: Dextrose Gel 15 GM PO PRN ×2 (17:22)
[2016-10-24] MEDS ORDERED: *HR* Promethazine 25 MG/ML VIAL IVP PRN (17:22)
[2016-10-24] MEDS ORDERED: Ondansetron 4 MG/2 ML VIAL IVP PRN (17:22)
[2016-10-24] MEDS ORDERED: *HR* Morphine 2 MG/ML SYRINGE IVP PRN (17:22)
[2016-10-24] MEDS ORDERED: *HR* Dextrose 50 % in Water (Syg) 50 ML SYRINGE IVP PRN (17:22)
[2016-10-24] MEDS ORDERED: Naloxone 0.4 MG/ML INJ IVP PRN (17:22)
[2016-10-24] MEDS ORDERED: *HR* OxyCODONE/APAP 5/325 TABLET PO PRN (17:22)
[2016-10-24] MEDS ORDERED: Insulin Regular, Human 100 UNIT/ML IV PRN (17:22)
[2016-10-24] MEDS: *HR* LORazepam 0.5 MG TABLET PO PRN (22:56)
[2016-10-25 05:41] LABS: Basophils % 0.3 %; Eosinophils # 0.2 K/mcL (0.0-0.6); Eosinophils % 2.1 %; Hematocrit 27.8 % (37.5-50.1); Hemoglobin 9.6 g/dL (12.9-16.9); Immature Granulocytes % 0.6 % (0-4); Lymphocytes # 1.1 K/mcL (0.6-4.6); Lymphocytes % 11.4 %; Mean Corpuscular HGB Conc 34.5 g/dL (31.6-35.5); Mean Corpuscular Hemoglobin 30.9 pg (28.0-33.3); Mean Corpuscular Volume 89.4 fL (83.0-100.0); Mean Platelet Volume 10.6 fL (9.4-12.4); Monocytes # 1.2 K/mcL (0.0-1.3); Neutrophils # 7.2 K/mcL (1.6-8.9); Platelet Count 158 K/mcL (140-400); Red Blood Count 3.11 M/mcL (4.19-5.50); Red Cell Distribution Width 11.8 % (11.5-14.5); Segmented Neutrophils % 73.6 %
[2016-10-25 05:52] LABS: BUN/Creatinine Ratio 22 (6-26); Blood Urea Nitrogen 17 mg/dL (8-26); Carbon Dioxide 25 mEq/L (19-29); Chloride 95 mEq/L (98-109); Potassium 4.3 mEq/L (3.5-4.5); Sodium 128 mEq/L (136-145)
[2016-10-25 05:53] LABS: Calcium 8.1 mg/dL (8.6-10.8); Glucose 122 mg/dL (70-99); Osmolality,Calculated 269 (280-300); eGFR For African Americans > 60 (> 60); eGFR For Non-African Americans > 60 (> 60)
--- NOTE | 2016-10-25 07:32 | Cardiothoracic Progress Note ---
Date of Encounter: 10/25/16 Time of Encounter: 07:31 - Assessment and plan (1) CAD (coronary artery disease) Current Visit: Yes Status: Chronic The patient is doing well. Hopefully, he can be discharged on Friday. Qualifiers: Coronary Disease-Associated Artery/Lesion type: unspecified vessel or lesion type [place] vs. transplanted heart: resighini heart Associated angina: angina presence unspecified Qualified Code(s): I25.10 - Atherosclerotic heart disease of resighini coronary artery without angina pectoris - Subjective Interval history: The patient has no complaints and feels much better. Vital Signs, Last 4 Hours Temp Pulse Resp BP Pulse Ox 10/25/16 07:28 98.8 F 85 18 133/72 91 10/25/16 04:27 98.1 F 85 18 143/78 96 10/25/16 04:26 16 98 10/25/16 04:00 83 Oxgyen Flow Rate Oxygen Flow Rate (LPM) 2 Clinical Data, last 8 Hours Output, Urine Amount 300 Weight 10/23/16 10/24/16 10/25/16 23:59 23:59 23:59 Weight 103.7 kg 101.1 kg Lungs are clear to percussion and auscultation. Heart is in a normal sinus rhythm. All incisions are healing well without signs of infection and the sternum is stable. Chest x-ray reveals no pneumothorax. - Labs 10/25/16 05:25 10/25/16 05:25 Lab Results, Last 24 hours 10/25/16 10/25/16 05:25 05:25 WBC 9.7 Hgb 9.6 L Hct 27.8 L Plt Count 158 Sodium 128 L Potassium 4.3 Chloride 95 L Carbon Dioxide 25 BUN 17 Creatinine 0.78 Glucose 122 H Calcium 8.1 L - VTE Documentation of Mechanical Device: Graduated compression elastic hosiery Consult Discharge Plan - Plan Referrals: Aparna Dawson E COMMERCE MANAGER [Advanced Practice Nurse] -
[2016-10-25] MEDS: Insulin LISPRO 300 UNITS/3 ML VIAL SQ SCH ×4 (08:01→20:33)
[2016-10-25] MEDS: Chlorhexidine Rinse 15 ML MOUTHWASH MM SCH ×2 (08:06→20:31)
[2016-10-25] MEDS: Valsartan 160 MG TABLET PO SCH (08:15)
[2016-10-25] MEDS: Aspirin 81 MG TAB.CHEW PO SCH (08:15)
--- NOTE | 2016-10-25 10:26 | Internal Med Progress Note ---
Date of Encounter: 10/25/16 Time of Encounter: 10:15 - Assessment and plan (1) S/P CABG (coronary artery bypass graft) Current Visit: Yes Status: Acute Assessment and plan: Patient found to have severe two-vessel disease for which he underwent CABG on . Patient has bilateral chest tubes in place currently. Chest tubes were removed by cardiothoracic surgery on 10/23. per cardiothoracic surgery Continue daily aspirin Continue morphine as needed for chest pain (2) Mobitz type 2 second degree AV block Current Visit: Yes Status: Acute Assessment and plan: Patient is externally paced currently with heart rate around 80. The pacemaker is turned off, heart rate immediately limits to below 30 and patient has return of symptoms. Plan for PCM placement today. Continue to hold patient's beta garo Avoid garland blockers (3) Syncope Current Visit: Yes Status: Acute Qualifiers: Syncope type: unspecified Qualified Code(s): R55 - Syncope and collapse (4) Symptomatic bradycardia Current Visit: Yes Status: Acute Assessment and plan: Plan as above Avoid AV garland blockers. (5) Hypertension Current Visit: Yes Status: Chronic Assessment and plan: Bp better controlled at 116/76-142/70. Continue to monitor vitals closely Continue valsartan Qualifiers: Hypertension type: essential hypertension Qualified Code(s): I10 - Essential (primary) hypertension (6) Hyponatremia Current Visit: Yes Status: Acute Assessment and plan: sodium at 128. close monitor. - Subjective Interval history: no complains. mild chest soreness. - Constitutional Vitals: Temp Pulse Resp BP Pulse Ox 98.8 F 81 16 133/72 95 10/25/16 07:28 10/25/16 08:00 10/25/16 08:03 10/25/16 07:28 10/25/16 08:03 General appearance: Present: cooperative, A&O X 3, pleasant, no acute distress, answers questions appropriately - Neck Neck exam general surgery: Present: supple, trachea midline. Absent: lymphadenopathy - Respiratory Respiratory exam: Present: CTAB - Cardiovascular Cardiovascular exam: Present: RRR - GI/Abdominal GI/Abdominal exam: Present: normal bowel sounds, soft. Absent: distended, tenderness - Extremities Exam Extremities exam: Present: pedal edema - Neurological Exam Neurological exam: Present: alert, oriented X3. Absent: facial droop, speech deficit Internal Medicine: Result - Labs CBC & Chem 7: 10/25/16 05:25 10/25/16 05:25 Labs: Short CBC 10/25/16 Range/Units 05:25 WBC 9.7 (4.3-11.1) K/mcL Hgb 9.6 L (12.9-16.9) g/dL Hct 27.8 L (37.5-50.1) % Plt Count 158 (140-400) K/mcL Neutrophils # 7.2 (1.6-8.9) K/mcL BMP 10/25/16 05:25 Sodium 128 L Potassium 4.3 Chloride 95 L Carbon Dioxide 25 BUN 17 Creatinine 0.78 Glucose 122 H Calcium 8.1 L - ABG Interpretation ABG results: ABG ABG pH 7.39 pH Units (7.32-7.45) 10/21/16 15:26 ABG pCO2 40 mmHg (35-45) 10/21/16 15:26 ABG pO2 86 mmHg (85-104) 10/21/16 15:26 ABG O2 Saturation 96 % (95-98) 10/21/16 15:26 PT/INR, D-dimer PT 14.1 Seconds (9.4-12.1) H 10/22/16 04:15 - Impressions Impressions Chest X-Ray 10/23/16 07:06 IMPRESSION: Interval removal of left-sided chest tube. No significant change in low lung volumes and bibasilar atelectasis. No evidence of pneumothorax. D/ / 10/23/2016 11:11:47 Trevor Colorado MD / mauricio Interpreting Provider: Trevor Colorado MD Chest X-Ray 10/24/16 16:28 IMPRESSION: Status post placement of left subclavian cardiac device. No pneumothorax. D/ / Richelle Galaviz Cha, MD / Richelle Galaviz Cha, MD Interpreting Provider: Richelle Galaviz Cha, MD Chest X-Ray 10/25/16 00:01 IMPRESSION: 1. Bibasilar atelectasis. 2. Stable mild enlargement of the cardiac silhouette. D/ / Eric Peterson MD / Eric Peterson MD Interpreting Provider: Eric Peterson MD - VTE Documentation of Mechanical Device: Graduated compression elastic hosiery Consult Discharge Plan - Plan Additional Instructions: ACTIVITY: Moderate activity for the next 7 days. No lifting more than 5 pounds ( gallon of milk) for 4-6 weeks. Avoid lifting your arm on the same side as the device for 4 weeks. BATHING /SHOWERING: Do not remove the large bandage over the site for 2 days. Do not allow the device to get wet for 7-10 days. You may bathe/shower, but do not use soap and water on the site. When bathing, keep the site dry by covering with Saran wrap or a towel. WOUND CARE: The white steri-strips will start to peel away and come off after 14 days, or your doctor will remove them after [address] anything into or on top of the incision. Do not use cotton swabs. Do not use any antibiotic ointment or Vitamin E on the site. REMINDERS: You may use electrical devices, such as, microwaves, hair dryers, electric razors, electric blankets, etc. as long as they are in good condition and kept 6 -8 inches away from the device. It is recommended to use cell phones on the opposite side of your device. Notify security personnel at the airport that you have a device before you go through airport security screening. When at places with security monitors, such as a grocery store, do not linger near these monitors. It is fine to walk past them in a normal manner. Refer to your owners manual for more specific directions. CARRY YOUR PACEMAKER/ICD CARD WITH YOU AT ALL TIMES Return to work as instructed per physician Resume driving as instructed per physician Keep all scheduled follow up appointments Resume medications as instructed Contact [facility] ( ) if: You develop excessive bleeding from insertion or wound site not controlled by applying pressure You develop a fever greater than 101 degrees Fahrenheit Your incision becomes reddened at or around the site Your incision develops yellowish or greenish drainage or development of white pimple-like bumps You experience excessive pain You develop swelling in your ankles You experience muscle switching You develop excessive hiccupping If you experience chest pain, shortness of breath, dizziness, or extreme tiredness, stop the activity and rest. Please notify [facility] office if you experience any of these symptoms and they are not relieved by rest please call 911! Referrals: Troy Gracia Jr, MD [Primary Care Provider] - 10/31/16 10:00 am Ashley Carmona CNP [Advanced Practice Nurse] - 11/14/16 2:00 pm Carmine Bryant MD [Partnered Physician] - 11/21/16 1:00 pm
--- NOTE | 2016-10-25 11:01 | Cardiology Progress Note ---
Date of Encounter: 10/25/16 Time of Encounter: 10:30 Assessment and Plan (1) Mobitz type 2 second degree AV block Current Visit: Yes Status: Acute Per Cardiology: Pt presented with dizziness, lightheadedness, presyncope and syncopal episode 3 weeks ago. HR reported to be 30s in ED, lowest HR on tele is 40s; betablocker ( lopressor 25 BID) held since admission. S/p dual chamber PPM ([employer]) . Chest x-ray stable. Device interrogation pending. Assuming no significant findings, will sign off. Follow-up scheduled. Pacer education provided. (2) S/P CABG (coronary artery bypass graft) Current Visit: Yes Status: Acute Per Cardiology: Hx of PCI to RCA and LCx in 2008 at outside facility. Severe 3v CAD per [facility] . S/p CABG on Friday. Asa, statin, ARB, and BB. Management per CT surgery. F/ u scheduled. Discussion w patient/family: The assessment and plan as outlined above was discussed with the patient and/or family members who expressed understanding and agreement. All questions were answered. Thank you for involving us in the care of your patient. Please call with any questions. Subjective Principal diagnosis: 2:1 AVB, MVD Interval history: Patient denies any new concerns or complaints. Reports some mild left chest wall and midsternal chest soreness from surgery and pacer insertion. Denies any dizziness or palpitations. Objective Vital Signs, Last 4 Hours Temp Pulse Resp BP Pulse Ox 10/25/16 08:03 16 95 10/25/16 08:00 81 10/25/16 07:28 98.8 F 85 18 133/72 91 General: Conversant, No Apparent Distress HEENT: Atraumatic, Normocephaly, Mucus Membranes Moist Cardiac: Reg Rate and Rhythm, Normal S1 and S2, No Murmur Lungs: Normal Breath Sounds, No Wheeze, Rales, Rhonchi Neuro: Alert and responsive, No focal deficits noted Skin: Other (Midsternal dressing dry and intact, left upper chest wall Steri- Strips dry and intact with no bleeding, no hematoma, mild ecchymosis) Results 10/25/16 05:25 10/25/16 05:25 Lab Results Laboratory Tests 10/15/16 10/25/16 10/25/16 05:10 05:25 05:25 Hgb 14.3 9.6 L Hct 41.4 27.8 L Potassium 4.3 Creatinine 0.78 Est GFR (Non-Af Amer) > 60 Impressions Chest X-Ray 10/23/16 07:06 IMPRESSION: Interval removal of left-sided chest tube. No significant change in low lung volumes and bibasilar atelectasis. No evidence of pneumothorax. D/ / 10/23/2016 11:11:47 Trevor Colorado MD / mauricio Interpreting Provider: Trevor Colorado MD Chest X-Ray 10/24/16 16:28 IMPRESSION: Status post placement of left subclavian cardiac device. No pneumothorax. D/ / Richelle Galaviz Cha, MD / Richelle Galaviz Cha, MD Interpreting Provider: Richelle Galaviz Cha, MD Chest X-Ray 10/25/16 00:01 IMPRESSION: 1. Bibasilar atelectasis. 2. Stable mild enlargement of the cardiac silhouette. D/ / Eric Peterson MD / Eric Peterson MD Interpreting Provider: Eric Peterson MD Active Medications Albuterol Sulfate (Albuterol Inhaler) 2 puff IH [id number] IMANI Stop: 04/22/17 16:01 Last Admin: 10/25/16 08:02 Dose: 2 puff Aspirin (Aspirin) 81 mg PO DAILY IMANI Stop: 04/17/17 09:01 Last Admin: 10/25/16 08:15 Dose: 81 mg Chlorhexidine Gluconate (Chlorhexidine Rinse) 15 ml MM BID IMANI Stop: 04/22/17 21:01 Last Admin: 10/25/16 08:06 Dose: 15 ml Dextrose/Water (Dextrose 50% (Syg)) 25 ml IVP AD PRN PRN Reason: Hypoglycemia Stop: 04/23/17 11:38 Docusate Sodium (Colace) 100 mg PO BID [facility] PRN Reason: Protocol Stop: 04/19/17 15:46 Last Admin: 10/25/16 08:15 Dose: 100 mg Glucagon (Glucagen) 1 mg IM ONCE PRN PRN Reason: Hypoglycemia Stop: 04/23/17 11:38 Glucose (Gluctose) 15 gm PO ONCE PRN PRN Reason: Hypoglycemia Stop: 04/23/17 11:38 Glucose (Gluctose) 30 gm PO ONCE PRN PRN Reason: Hypoglycemia Stop: 04/23/17 11:38 Dextrose (Dextrose 5%) 1,000 mls @ 100 mls/hr IVC .Q10H PRN PRN Reason: HYPOGLYCEMIA Stop: 04/23/17 11:38 Insulin Human Lispro (Humalog) 0 units SQ HS [facility] PRN Reason: Protocol Stop: 04/23/17 21:01 Last Admin: 10/24/16 21:28 Dose: 3 units Insulin Human Lispro (Humalog) 0 units SQ TIDAC [facility] PRN Reason: Protocol Stop: 04/23/17 16:31 Last Admin: 10/25/16 08:01 Dose: Not Given Insulin Human Regular (Humulin R) 5 unit IV ONCE PRN PRN Reason: SEE COMMENTS Stop: 04/22/17 12:08 Lorazepam (Ativan) 0.5 mg PO HS PRN PRN Reason: Insomnia Stop: 04/16/17 12:42 Last Admin: 10/24/16 22:56 Dose: 0.5 mg Metoprolol Tartrate (Lopressor) 25 mg PO BID [facility] Stop: 04/25/17 17:23 Last Admin: 10/25/16 08:15 Dose: 25 mg Morphine Sulfate (Morphine Sulfate) 2 mg IVP Q1H PRN PRN Reason: Moderate Pain Stop: 04/22/17 12:08 Mupirocin (Bactroban Oint) 1 appl NS BID [facility] Stop: 04/20/17 11:01 Last Admin: 10/25/16 08:15 Dose: 1 appl Naloxone HCl (Narcan) 0.4 mg IVP Q2MIN PRN PRN Reason: Opioid Reversal Stop: 04/16/17 12:47 Ondansetron HCl (Zofran) 4 mg IVP Q6H PRN PRN Reason: Nausea And Vomiting Stop: 04/22/17 12:08 Oxycodone/Acetaminophen (Percocet 5/325) 1 each PO Q4HR PRN PRN Reason: Severe Pain Stop: 04/22/17 12:08 Potassium Chloride (Potassium Chloride) 10 meq PO DAILY IMANI Stop: 04/17/17 15:16 Last Admin: 10/25/16 08:15 Dose: 10 meq Promethazine HCl (Phenergan) 12.5 mg IVP Q6HR PRN PRN Reason: Nausea And Vomiting Stop: 04/22/17 12:08 Rosuvastatin Calcium (Crestor) 20 mg PO HS IMANI Stop: 04/17/17 21:01 Last Admin: 10/24/16 21:27 Dose: 20 mg Valsartan (Diovan) 160 mg PO DAILY IMANI Stop: 04/17/17 15:08 Last Admin: 10/25/16 08:15 Dose: 160 mg - Imaging and Cardiology Chest Xray: report reviewed - EKG Interpretation EKG results cardiology: other (paced) - VTE Documentation of Mechanical Device: Graduated compression elastic hosiery Consult Discharge Plan - Plan Additional Instructions: ACTIVITY: Moderate activity for the next 7 days. No lifting more than 5 pounds ( gallon of milk) for 4-6 weeks. Avoid lifting your arm on the same side as the device for 4 weeks. BATHING /SHOWERING: Do not remove the large bandage over the site for 2 days. Do not allow the device to get wet for 7-10 days. You may bathe/shower, but do not use soap and water on the site. When bathing, keep the site dry by covering with Saran wrap or a towel. WOUND CARE: The white steri-strips will start to peel away and come off after 14 days, or your doctor will remove them after [address] anything into or on top of the incision. Do not use cotton swabs. Do not use any antibiotic ointment or Vitamin E on the site. REMINDERS: You may use electrical devices, such as, microwaves, hair dryers, electric razors, electric blankets, etc. as long as they are in good condition and kept 6 -8 inches away from the device. It is recommended to use cell phones on the opposite side of your device. Notify security personnel at the airport that you have a device before you go through airport security screening. When at places with security monitors, such as a grocery store, do not linger near these monitors. It is fine to walk past them in a normal manner. Refer to your owners manual for more specific directions. CARRY YOUR PACEMAKER/ICD CARD WITH YOU AT ALL TIMES Return to work as instructed per physician Resume driving as instructed per physician Keep all scheduled follow up appointments Resume medications as instructed Contact [facility] ( ) if: You develop excessive bleeding from insertion or wound site not controlled by applying pressure You develop a fever greater than 101 degrees Fahrenheit Your incision becomes reddened at or around the site Your incision develops yellowish or greenish drainage or development of white pimple-like bumps You experience excessive pain You develop swelling in your ankles You experience muscle switching You develop excessive hiccupping If you experience chest pain, shortness of breath, dizziness, or extreme tiredness, stop the activity and rest. Please notify [facility] office if you experience any of these symptoms and they are not relieved by rest please call 911! Referrals: Troy Gracia Jr, MD [Primary Care Provider] - 10/31/16 10:00 am Ashley Carmona CNP [Advanced Practice Nurse] - 11/14/16 2:00 pm Carmine Bryant MD [Partnered Physician] - 11/21/16 1:00 pm
--- NOTE | 2016-10-25 13:39 | Invasive Diagnostic Lab ---
Dual Chamber Pacemaker Insertion Name: Frnack Maldonado Date of Study: 10/24/2016 Date: 1945 Ht: 188.0 cm / 74.0 in Medical Record#: [id number] Age: 70 Wt: 104.0 kg / 229.3 lb Gender: Male BSA: 2.30 Location: Fluoro Dose: 91 mGy BMI: 29.43 Performing MD: Amos Russell MD, [facility] Procedures Performed: Procedure PM INSERTION DUAL LEADS Indications: Description 2nd Degree AV Block type I Impressions: * Successful implant of dual chamber pacemaker generator. Degree of difficulty was moderate. Appropriate functionality was observed at the end of the case. Procedure completed without incident. Recommendations: The patient will follow-up in 4-6 weeks for a post-pacemaker interrogation and evaluation with their Machinist Supervisor. Procedure Description: After informed consent was obtained, the patient was brought to the laboratory in the fasting, post absorptive state. The left subclavicular region was prepped and draped in sterile fashion. Local anesthesia was performed using 1% Lidocaine. A 4cm incision was created two fingerbreadths below and parallel to the clavicle and carried down to the prepectoral fascia. At that level, a pocket was created to accomodate and size the hardware. This portion of the procedure used sharp dissection, blunt dissection and electrocautery. Venous access was obtained using a dual axillary vein stick with the modified Seldinger technique using two 7 Fr. Safe sheaths. The right ventricular lead was manipulated under direct fluoroscopy to find a physically stable and electrically optimal location in the RV [place]. Next, the right atrial lead was placed and again manipulated under direct fluoroscopy to find a physically stable electrically optimal location in the RA appendage. The pt was noted to be in atrial flutter and was successfully pace terminated. Hemostasis was obtained. The pocket was copiously irrigated with antibiotic solution. The device was connected to the leads in standard fashion and set screws deployed. The device was placed in the pocket. No anchoring sutures were placed. The wound was closed in layers starting with 2-0 Vicryl for the deep layer and 4-0 Vicryl for the skin. Steri-Strips were placed and 4x4s secured with tape. The patient tolerated the procedure well. Complications: None Disposition: The patient was returned to the recovery room. Patient will be scheduled to have a follow-up wound check in one week here at [facility]. PPM Device Information: Lo[employer] Consultant Model Name Model No. Serial No. [employer] [employer] [id number] PPM Lead(s) Information: [employer] Model Name Model No. Serial No. Placement [employer] Ingevity [id number] RV [place] [employer] [id number] RA appendage Device Measurement Data: Sensing (mV) Threshold (V) / (msec) Impedance (Ohms) Atrial Lead 3 0.7 / 0.5 780 RV Lead 8.6 0.7 / 0.5 834 LV Lead Device Settings: MODE: DDDR Lower Rate: 60 bpm ALAN Delay: Upper Rate: 130 bpm PAV Delay: Procedure Medications: Time Medication Dose Unit Route 03:21 PM Vancomycin 1.5 gram Intravenous 03:29 PM Versed 2 Mg Intravenous 03:29 PM Fentanyl 25 Mcg Intravenous 03:36 PM Versed 1 Mg Intravenous 03:36 PM Fentanyl 25 Mcg Intravenous 03:37 PM Lidocaine 2% 9 mL Subcutaneous 03:38 PM Lidocaine 2% 5 mL Subcutaneous 03:39 PM Lidocaine 2% 6 mL Subcutaneous 03:46 PM Versed 1 Mg Intravenous 03:46 PM Fentanyl 25 Mcg Intravenous 03:48 PM Lidocaine 2% 3 mL Subcutaneous Contrast: Isovue 0 ml. Complications: No complications occurred during the procedure. Complication None Updated by Amos Russell MD, FACC on 10/24/2016 4:45:55 PM electronically signed on 10/24/2016 4:46:28 PM with status of Final
[2016-10-25] MEDS: *HR* LORazepam 0.5 MG TABLET PO PRN (23:51)
[2016-10-26 05:45] LABS: Basophils % 0.4 %; Eosinophils # 0.3 K/mcL (0.0-0.6); Eosinophils % 4.2 %; Hemoglobin 9.3 g/dL (12.9-16.9); Immature Granulocytes % 0.6 % (0-4); Lymphocytes # 1.1 K/mcL (0.6-4.6); Lymphocytes % 14.5 %; Mean Corpuscular HGB Conc 34.4 g/dL (31.6-35.5); Mean Platelet Volume 10.6 fL (9.4-12.4); Monocytes % 12.5 %; Neutrophils # 5.3 K/mcL (1.6-8.9); Platelet Count 171 K/mcL (140-400); Red Cell Distribution Width 11.8 % (11.5-14.5); Segmented Neutrophils % 67.8 %
[2016-10-26 06:07] LABS: BUN/Creatinine Ratio 21 (6-26); Blood Urea Nitrogen 15 mg/dL (8-26); Calcium 8.2 mg/dL (8.6-10.8); Carbon Dioxide 26 mEq/L (19-29); Chloride 97 mEq/L (98-109); Glucose 114 mg/dL (70-99); Osmolality,Calculated 272 (280-300); Sodium 130 mEq/L (136-145); eGFR For African Americans > 60 (> 60); eGFR For Non-African Americans > 60 (> 60)
--- NOTE | 2016-10-26 08:07 | Cardiothoracic Progress Note ---
Date of Encounter: 10/26/16 Time of Encounter: 08:06 - Assessment and plan (1) CAD (coronary artery disease) Current Visit: Yes Status: Chronic I removed his temporary pacing wires. Hopefully, he can be discharged tomorrow. Qualifiers: Coronary Disease-Associated Artery/Lesion type: unspecified vessel or lesion type [place] vs. transplanted heart: [place] heart Associated angina: angina presence unspecified Qualified Code(s): I25.10 - Atherosclerotic heart disease of [place] coronary artery without angina pectoris - Subjective Interval history: The patient has no complaints and is ambulating without difficulty. Vital Signs, Last 4 Hours Pulse 10/26/16 04:45 76 Oxgyen Flow Rate Oxygen Flow Rate (LPM) 0 Clinical Data, last 8 Hours Output, Urine Amount 500 Output, Urine Amount 750 Weight 10/24/16 10/25/16 10/26/16 23:59 23:59 23:59 Weight 101.1 kg 97.4 kg Lungs are clear to percussion and auscultation. Heart is in a paced rhythm. All incisions are healing well without signs of infection and his sternum is stable. - Labs 10/26/16 04:55 10/26/16 04:55 Lab Results, Last 24 hours 10/26/16 10/26/16 04:55 04:55 WBC 7.8 Hgb 9.3 L Hct 27.0 L Plt Count 171 Sodium 130 L Potassium 4.0 Chloride 97 L Carbon Dioxide 26 BUN 15 Creatinine 0.72 Glucose 114 H Calcium 8.2 L - VTE Documentation of Mechanical Device: Graduated compression elastic hosiery Consult Discharge Plan - Plan Additional Instructions: ACTIVITY: Moderate activity for the next 7 days. No lifting more than 5 pounds ( gallon of milk) for 4-6 weeks. Avoid lifting your arm on the same side as the device for 4 weeks. BATHING /SHOWERING: Do not remove the large bandage over the site for 2 days. Do not allow the device to get wet for 7-10 days. You may bathe/shower, but do not use soap and water on the site. When bathing, keep the site dry by covering with Saran wrap or a towel. WOUND CARE: The white steri-strips will start to peel away and come off after 14 days, or your doctor will remove them after [address] anything into or on top of the incision. Do not use cotton swabs. Do not use any antibiotic ointment or Vitamin E on the site. REMINDERS: You may use electrical devices, such as, microwaves, hair dryers, electric razors, electric blankets, etc. as long as they are in good condition and kept 6 -8 inches away from the device. It is recommended to use cell phones on the opposite side of your device. Notify security personnel at the airport that you have a device before you go through airport security screening. When at places with security monitors, such as a grocery store, do not linger near these monitors. It is fine to walk past them in a normal manner. Refer to your owners manual for more specific directions. CARRY YOUR PACEMAKER/ICD CARD WITH YOU AT ALL TIMES Return to work as instructed per physician Resume driving as instructed per physician Keep all scheduled follow up appointments Resume medications as instructed Contact [facility] ( ) if: You develop excessive bleeding from insertion or wound site not controlled by applying pressure You develop a fever greater than 101 degrees Fahrenheit Your incision becomes reddened at or around the site Your incision develops yellowish or greenish drainage or development of white pimple-like bumps You experience excessive pain You develop swelling in your ankles You experience muscle switching You develop excessive hiccupping If you experience chest pain, shortness of breath, dizziness, or extreme tiredness, stop the activity and rest. Please notify [facility] office if you experience any of these symptoms and they are not relieved by rest please call 911! Referrals: Troy Gracia Jr, MD [Primary Care Provider] - 10/31/16 10:00 am Ashley Carmona CNP [Advanced Practice Nurse] - 11/14/16 2:00 pm Carmine Bryant MD [Partnered Physician] - 11/21/16 1:00 pm
[2016-10-26] MEDS: Aspirin 81 MG TAB.CHEW PO SCH (08:18)
[2016-10-26] MEDS: Valsartan 160 MG TABLET PO SCH (08:18)
[2016-10-26] MEDS: Chlorhexidine Rinse 15 ML MOUTHWASH MM SCH ×2 (08:19→21:31)
[2016-10-26] MEDS: Insulin LISPRO 300 UNITS/3 ML VIAL SQ SCH ×4 (08:21→21:37)
--- NOTE | 2016-10-26 11:59 | Internal Med Progress Note ---
Date of Encounter: 10/26/16 Time of Encounter: 09:00 - Assessment and plan (1) S/P CABG (coronary artery bypass graft) Current Visit: Yes Status: Acute Assessment and plan: Patient found to have severe two-vessel disease for which he underwent CABG on . Patient has bilateral chest tubes in place currently. Chest tubes were removed by cardiothoracic surgery on 10/23. per cardiothoracic surgery Continue daily aspirin Continue morphine as needed for chest pain (2) Mobitz type 2 second degree AV block Current Visit: Yes Status: Acute Assessment and plan: Patient is externally paced currently with heart rate around 80. The pacemaker is turned off, heart rate immediately limits to below 30 and patient has return of symptoms. PCM placement 10/24. Continue to hold patient's beta garo Avoid garland blockers (3) Syncope Current Visit: Yes Status: Acute Qualifiers: Syncope type: unspecified Qualified Code(s): R55 - Syncope and collapse (4) Symptomatic bradycardia Current Visit: Yes Status: Acute Assessment and plan: Plan as above Avoid AV garland blockers. (5) Hypertension Current Visit: Yes Status: Chronic Assessment and plan: Bp better controlled at 116/76-142/70. Continue to monitor vitals closely Continue valsartan Qualifiers: Hypertension type: essential hypertension Qualified Code(s): I10 - Essential (primary) hypertension (6) Hyponatremia Current Visit: Yes Status: Acute Assessment and plan: sodium at 130. close monitor. - Subjective Interval history: mild chest soreness. no complains. - Constitutional Vitals: Temp Pulse Resp BP Pulse Ox 98.9 F 76 16 111/72 95 10/26/16 09:48 10/26/16 04:45 10/26/16 09:48 10/26/16 09:48 10/26/16 09:48 General appearance: Present: cooperative, A&O X 3, pleasant, no acute distress, answers questions appropriately - Eye Eye exam: Present: PERRL, sclera anicteric - Neck Neck exam general surgery: Present: supple, trachea midline. Absent: lymphadenopathy - Respiratory Respiratory exam: Present: CTAB - Cardiovascular Cardiovascular exam: Present: RRR - GI/Abdominal GI/Abdominal exam: Present: normal bowel sounds, soft. Absent: distended, tenderness - Extremities Exam Extremities exam: Present: pedal edema - Back Exam Back exam: Absent: CVA tenderness (L), CVA tenderness (R) - Neurological Exam Neurological exam: Present: alert, oriented X3, no focal deficits, strengths equal and symetr throughout. Absent: pronater drift, facial droop, speech deficit - Skin Skin exam: Absent: rash Internal Medicine: Result - Labs CBC & Chem 7: 10/26/16 04:55 10/26/16 04:55 Labs: Short CBC 10/26/16 Range/Units 04:55 WBC 7.8 (4.3-11.1) K/mcL Hgb 9.3 L (12.9-16.9) g/dL Hct 27.0 L (37.5-50.1) % Plt Count 171 (140-400) K/mcL Neutrophils # 5.3 (1.6-8.9) K/mcL BMP 10/26/16 04:55 Sodium 130 L Potassium 4.0 Chloride 97 L Carbon Dioxide 26 BUN 15 Creatinine 0.72 Glucose 114 H Calcium 8.2 L - ABG Interpretation ABG results: ABG ABG pH 7.39 pH Units (7.32-7.45) 10/21/16 15:26 ABG pCO2 40 mmHg (35-45) 10/21/16 15:26 ABG pO2 86 mmHg (85-104) 10/21/16 15:26 ABG O2 Saturation 96 % (95-98) 10/21/16 15:26 PT/INR, D-dimer PT 14.1 Seconds (9.4-12.1) H 10/22/16 04:15 - VTE Documentation of Mechanical Device: Graduated compression elastic hosiery Consult Discharge Plan - Plan Additional Instructions: ACTIVITY: Moderate activity for the next 7 days. No lifting more than 5 pounds ( gallon of milk) for 4-6 weeks. Avoid lifting your arm on the same side as the device for 4 weeks. BATHING /SHOWERING: Do not remove the large bandage over the site for 2 days. Do not allow the device to get wet for 7-10 days. You may bathe/shower, but do not use soap and water on the site. When bathing, keep the site dry by covering with Saran wrap or a towel. WOUND CARE: The white steri-strips will start to peel away and come off after 14 days, or your doctor will remove them after [address] anything into or on top of the incision. Do not use cotton swabs. Do not use any antibiotic ointment or Vitamin E on the site. REMINDERS: You may use electrical devices, such as, microwaves, hair dryers, electric razors, electric blankets, etc. as long as they are in good condition and kept 6 -8 inches away from the device. It is recommended to use cell phones on the opposite side of your device. Notify security personnel at the airport that you have a device before you go through airport security screening. When at places with security monitors, such as a grocery store, do not linger near these monitors. It is fine to walk past them in a normal manner. Refer to your owners manual for more specific directions. CARRY YOUR PACEMAKER/ICD CARD WITH YOU AT ALL TIMES Return to work as instructed per physician Resume driving as instructed per physician Keep all scheduled follow up appointments Resume medications as instructed Contact [facility] ( ) if: You develop excessive bleeding from insertion or wound site not controlled by applying pressure You develop a fever greater than 101 degrees Fahrenheit Your incision becomes reddened at or around the site Your incision develops yellowish or greenish drainage or development of white pimple-like bumps You experience excessive pain You develop swelling in your ankles You experience muscle switching You develop excessive hiccupping If you experience chest pain, shortness of breath, dizziness, or extreme tiredness, stop the activity and rest. Please notify [facility] office if you experience any of these symptoms and they are not relieved by rest please call 911! Referrals: Troy Gracia Jr, MD [Primary Care Provider] - 10/31/16 10:00 am Ashley Carmona CNP [Advanced Practice Nurse] - 11/14/16 2:00 pm Carmine Bryant MD [Partnered Physician] - 11/21/16 1:00 pm
[2016-10-26] MEDS: *HR* LORazepam 0.5 MG TABLET PO PRN (23:43)
[2016-10-27 04:41] LABS: Basophils % 0.5 %; Eosinophils # 0.3 K/mcL (0.0-0.6); Eosinophils % 3.8 %; Hematocrit 28.1 % (37.5-50.1); Hemoglobin 9.8 g/dL (12.9-16.9); Immature Granulocytes % 1.1 % (0-4); Lymphocytes # 1.4 K/mcL (0.6-4.6); Lymphocytes % 16.3 %; Mean Corpuscular HGB Conc 34.9 g/dL (31.6-35.5); Mean Corpuscular Hemoglobin 31.1 pg (28.0-33.3); Mean Corpuscular Volume 89.2 fL (83.0-100.0); Neutrophils # 5.6 K/mcL (1.6-8.9); Platelet Count 218 K/mcL (140-400); Red Blood Count 3.15 M/mcL (4.19-5.50); Red Cell Distribution Width 11.8 % (11.5-14.5); Segmented Neutrophils % 66.3 %
[2016-10-27 04:52] LABS: BUN/Creatinine Ratio 17 (6-26); Blood Urea Nitrogen 12 mg/dL (8-26); Calcium 8.6 mg/dL (8.6-10.8); Carbon Dioxide 26 mEq/L (19-29); Chloride 98 mEq/L (98-109); Glucose 122 mg/dL (70-99); Magnesium 1.7 mg/dL (1.6-2.6); Osmolality,Calculated 273 (280-300); Sodium 131 mEq/L (136-145); eGFR For African Americans > 60 (> 60); eGFR For Non-African Americans > 60 (> 60)
[2016-10-27] MEDS: Insulin LISPRO 300 UNITS/3 ML VIAL SQ SCH (07:59)
[2016-10-27 08:10] VITALS: BP 143/79
--- NOTE | 2016-10-27 09:20 | Discharge Summary ---
Date of Encounter: 10/27/16 Time of Encounter: 09:15 - Discharge Diagnosis (1) CAD (coronary artery disease) Priority: Primary Status: Chronic Qualifiers: Coronary Disease-Associated Artery/Lesion type: unspecified vessel or lesion type [place] vs. transplanted heart: [place] heart Associated angina: angina presence unspecified Qualified Code(s): I25.10 - Atherosclerotic heart disease of [place] coronary artery without angina pectoris - Discharge Medications Prescriptions: OxyCODONE/APAP 5/325 [Percocet 5/325 MG] 1 each PO Q4HR PRN #30 tablet PRN Reason: Severe Pain Metoprolol [Lopressor] 25 mg PO BID #60 tablet Home Medications: Aspirin 81 mg PO DAILY 10/15/16 [History] Cyanocobalamin (Vitamin B-12) [Vitamin B-12] 1,000 mcg SL DAILY 10/15/16 [ History] Flaxseed Oil [[place]-3 Flaxseed Oil] 1,000 mg PO DAILY 10/15/16 [History] Glucosamine HCl/Chondr Telles A Na [[facility] Glucosamine-Chondr Tablet] 1 each PO DAILY 10/15/16 [History] LORazepam [Ativan] 1 mg PO HS PRN 10/15/16 [History] Metoprolol [Lopressor] 25 mg PO BID 10/15/16 [History] Mv-Mn/FA/Vit K/Lycop/Lut/Coq10 [Daily Multivitamin Capsule] 1 each PO DAILY 10/26 [History] [place]-3/Dha/Epa/Fish Oil [Fish Oil 1,000 mg Softgel] 1 each PO DAILY 10/15/16 [ History] Potassium 99 mg PO DAILY 10/15/16 [History] Rosuvastatin Calcium [Crestor] 10 mg PO HS 10/15/16 [History] Sildenafil Citrate [Revatio] 20 mg PO DAILY 10/15/16 [History] Valsartan/Hydrochlorothiazide [Diovan Hct 320-12.5 mg Tab] 1 each PO DAILY 10/15 [History] Vitamin E 200 unit PO DAILY 10/15/16 [History] amLODIPine [Norvasc] 5 mg PO DAILY 10/15/16 [History] Metoprolol [Lopressor] 25 mg PO BID #60 tablet 10/27/16 [Rx] OxyCODONE/APAP 5/325 [Percocet 5/325 MG] 1 each PO Q4HR PRN #30 tablet 10/27/16 [Rx] Allergies/Adverse Reactions: Allergies Diclofenac [From Voltaren] Adverse Reaction (Verified 10/15/16 10:55) Abdominal Pain Procedures/tests Complete & Pending: Procedures Performed prior 72 hours Category Date Time Status CL Insert Permanent Pacemaker [CL] Routine [employer]dra[employer] Operator 10/24/16 12:00 Completed Date of admission: 10/16/16 16:39 Primary care physician: Troy Gracia Jr, MD Consults: 10/17/16 14:52 Consult to Electrophysiology (EP) [CONS] Routine Consulting Provider: [facility] [place] Reason for Consult: 2:1 AVB Call Completed: Yes 10/17/16 14:53 Consult to Cardiothoracic Surgery [CONS] Routine Consulting Provider: Cardiothoracic Surgery [place] Reason for Consult: open heart Call Completed: Yes 10/21/16 12:07 Consult to Cardiac Rehabilitation-Phase1 [CONS] Routine Comment: Reason for Consult: Post open heart Call Completed: Yes Consult to [employer] [CONS] Routine Reason for SW Consult: open heart 10/24/16 17:22 Consult for Pharmacy Education [CONS] Routine Reason for Consult: Post-Op Heart Call Completed: Yes Consult to Occupational Therapy [CONS] Routine Comment: Evaluate, develop and implement POC Reason for Consult: Post-Op Heart Consult to Physical Therapy [CONS] Routine Comment: Evaluate, develop and implement POC Reason for Consult: Post open heart Procedure(s) Performed: October 21, 2016. Coronary artery bypass grafting 2, utilizing the left internal mammary artery. October 24, 2016. Dual-chamber permanent DDD pacemaker. Discharging clinician: Carmine Bryant Anticipated date of discharge: 10/27/16 - Patient Status Disposition: Home, Self-Care Condition: Critical Functional capacity at discharge: independent ambulation Overall status at discharge: patient is progressing back to baseline - Discharge Instructions Follow Up With: Troy Gracia Jr, MD [Primary Care Provider] - 10/31/16 10:00 am Ashley Carmona CNP [Advanced Practice Nurse] - 11/14/16 2:00 pm Carmine Bryant MD [Partnered Physician] - 11/21/16 1:00 pm - Hospital Course Hospital course: Mr. Maldonado is a 70 year old male The patient is a 70-year-old gentleman who presented with dizziness and second- degree heart block with heart rates in the 20s. He also had angina. Cardiac catheterization revealed severe coronary artery disease and he was referred for surgery. On October 21, 2016, I took him to the operating room for coronary artery bypass grafting 2, utilizing his left internal mammary artery. Postoperatively , he had temporary pacing wires and was paced in the DDD mode. On October 23 his chest tubes were removed. On October 24, Dr. Russell placed a permanent DDD pacemaker. The temporary pacing wires were removed on October 26. The patient otherwise did well and was discharged on October 27. At that time, he was afebrile. Lungs were clear to percussion and auscultation. Heart was in a paced rhythm. All incisions were healing well without signs of infection and the sternum was stable. Discharge medications are on the [employer] and include Percocet for pain. I did check the [place] automated Rx reporting system. The patient was given a one-week supply and he was postoperative. Appropriate precautions were given. He was treated her in to his previous a regular diet. He was to avoid heavy lifting for a total of 3 months after surgery, but to walk as much as possible. He was to avoid driving for 1 month. He was to follow up and see me in the office in 4 weeks as directed. 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 He was to call sooner for any difficulties. - Time Spent with Patient Total time spent providing and/or coordinating discharge services: Physical Examination Vital Signs, Last 4 Hours Temp Pulse BP Pulse Ox 10/27/16 07:55 97.8 F 76 143/79 96 [facility] Aspirin Cont/Prescribed at DC: Yes Beta Lesley Cont/Prescribed at DC: Yes Statin Cont/Prescribed at DC: Yes MARQUISE/ARB Cont/Prescribed at DC: Yes - VTE Documentation of Mechanical Device: Graduated compression elastic hosiery
[2016-10-27] MEDS: Aspirin 81 MG TAB.CHEW PO SCH (09:32)
[2016-10-27] MEDS: Chlorhexidine Rinse 15 ML MOUTHWASH MM SCH (09:32)
[2016-10-27] MEDS: Valsartan 160 MG TABLET PO SCH (09:32)
--- NOTE | 2016-10-27 11:07 | Internal Med Progress Note ---
Date of Encounter: 10/27/16 Time of Encounter: 11:01 - Assessment and plan (1) S/P CABG (coronary artery bypass graft) Current Visit: Yes Status: Acute Assessment and plan: Patient found to have severe two-vessel disease for which he underwent CABG on . Patient has bilateral chest tubes in place currently. Chest tubes were removed by cardiothoracic surgery on 10/23. dc home today (2) Mobitz type 2 second degree AV block Current Visit: Yes Status: Acute Assessment and plan: Patient is externally paced currently with heart rate around 80. The pacemaker is turned off, heart rate immediately limits to below 30 and patient has return of symptoms. PCM placement 10/24. Continue to hold patient's beta garo Avoid garland blockers (3) Syncope Current Visit: Yes Status: Acute Qualifiers: Syncope type: unspecified Qualified Code(s): R55 - Syncope and collapse (4) Symptomatic bradycardia Current Visit: Yes Status: Acute Assessment and plan: Plan as above Avoid AV garland blockers. (5) Hypertension Current Visit: Yes Status: Chronic Assessment and plan: Bp better controlled at 116/76-142/70. Continue to monitor vitals closely Continue valsartan Qualifiers: Hypertension type: essential hypertension Qualified Code(s): I10 - Essential (primary) hypertension (6) Hyponatremia Current Visit: Yes Status: Acute Assessment and plan: sodium at 130. close monitor. - Subjective Interval history: no complains. he is ambulating well. - Constitutional Vitals: Temp Pulse Resp BP Pulse Ox 97.8 F 83 18 143/79 98 10/27/16 07:55 10/27/16 09:30 10/27/16 04:30 10/27/16 07:55 10/27/16 09:30 General appearance: Present: cooperative, A&O X 3, pleasant, no acute distress, answers questions appropriately - Neck Neck exam general surgery: Present: supple, trachea midline. Absent: lymphadenopathy - Respiratory Respiratory exam: Present: CTAB - Cardiovascular Cardiovascular exam: Present: RRR - GI/Abdominal GI/Abdominal exam: Present: normal bowel sounds, soft. Absent: distended, tenderness - Extremities Exam Extremities exam: Present: pedal edema - Back Exam Back exam: Absent: CVA tenderness (L), CVA tenderness (R) - Neurological Exam Neurological exam: Present: alert, oriented X3, no focal deficits, strengths equal and symetr throughout. Absent: facial droop, speech deficit - Skin Skin exam: Absent: rash Internal Medicine: Result - Labs CBC & Chem 7: 10/27/16 04:15 10/27/16 04:15 Labs: Short CBC 10/27/16 Range/Units 04:15 WBC 8.4 (4.3-11.1) K/mcL Hgb 9.8 L (12.9-16.9) g/dL Hct 28.1 L (37.5-50.1) % Plt Count 218 (140-400) K/mcL Neutrophils # 5.6 (1.6-8.9) K/mcL BMP 10/27/16 04:15 Sodium 131 L Potassium 4.0 Chloride 98 Carbon Dioxide 26 BUN 12 Creatinine 0.72 Glucose 122 H Calcium 8.6 - ABG Interpretation ABG results: ABG ABG pH 7.39 pH Units (7.32-7.45) 10/21/16 15:26 ABG pCO2 40 mmHg (35-45) 10/21/16 15:26 ABG pO2 86 mmHg (85-104) 10/21/16 15:26 ABG O2 Saturation 96 % (95-98) 10/21/16 15:26 PT/INR, D-dimer PT 14.1 Seconds (9.4-12.1) H 10/22/16 04:15 - VTE Documentation of Mechanical Device: Graduated compression elastic hosiery Consult Discharge Plan - Plan Instructions: Metoprolol (By mouth), Oxycodone/Acetaminophen (By mouth), Myocardial Infarction (DC), Coronary Artery Disease (DC), Pacemaker (DC), Sternal Precautions (GEN) Additional Instructions: ACTIVITY: Moderate activity for the next 7 days. No lifting more than 5 pounds ( gallon of milk) for 4-6 weeks. Avoid lifting your arm on the same side as the device for 4 weeks. BATHING /SHOWERING: Do not remove the large bandage over the site for 2 days. Do not allow the device to get wet for 7-10 days. You may bathe/shower, but do not use soap and water on the site. When bathing, keep the site dry by covering with Saran wrap or a towel. WOUND CARE: The white steri-strips will start to peel away and come off after 14 days, or your doctor will remove them after [address] anything into or on top of the incision. Do not use cotton swabs. Do not use any antibiotic ointment or Vitamin E on the site. REMINDERS: You may use electrical devices, such as, microwaves, hair dryers, electric razors, electric blankets, etc. as long as they are in good condition and kept 6 -8 inches away from the device. It is recommended to use cell phones on the opposite side of your device. Notify security personnel at the airport that you have a device before you go through airport security screening. When at places with security monitors, such as a grocery store, do not linger near these monitors. It is fine to walk past them in a normal manner. Refer to your owners manual for more specific directions. CARRY YOUR PACEMAKER/ICD CARD WITH YOU AT ALL TIMES Return to work as instructed per physician Resume driving as instructed per physician Keep all scheduled follow up appointments Resume medications as instructed Contact [facility] ( ) if: You develop excessive bleeding from insertion or wound site not controlled by applying pressure You develop a fever greater than 101 degrees Fahrenheit Your incision becomes reddened at or around the site Your incision develops yellowish or greenish drainage or development of white pimple-like bumps You experience excessive pain You develop swelling in your ankles You experience muscle switching You develop excessive hiccupping If you experience chest pain, shortness of breath, dizziness, or extreme tiredness, stop the activity and rest. Please notify [facility] office if you experience any of these symptoms and they are not relieved by rest please call 911! Open Heart Surgery Instructions: If you have questions that are not answered by these instructions, please call your nurse or doctor. * Do not drive for 1 month or until allowed by your surgeon. * If you smoke, STOP SMOKING. Smoking or tobacco use significantly increases your risk of heart disease because nicotine causes the arteries to narrow or constrict. It also causes fats to stick to the artery. Your chances of occluding your new bypasses or having a heart attack are greatly increased if you continue to smoke. For more information call the patient education line for smoking cessation 9-357-ENBQ-NOW. * Continue to use your incentive Spirometry about 6 times each day (1 use = 5 to 10 breaths) for 1 month. This important to help prevent pneumonia. * Follow your Phase I Cardiac Rehab Activity Guide. * You may climb stairs, one step at a time, as you are able. * Do not lift more than 10 pounds (1/2 gallon of milk = 5 pounds), vacuum, sweep , shovel snow, rake leaves, or do anything that could pull on the chest for 2 months. * You may resume sexual activity when you feel ready. * Continue to wear BEONY hose during the day for about 1 month. Remove and wash daily in mild detergent. * Gently wash incision with soap and water daily. Rinse well and pat dry with a clean towel. Do not soak your incisions under water. Do not use any powders, lotions, creams or ointments on your incision. * Chest tube sites may drain fluid for 1-2 weeks and can be covered with dry gauze. They also may become reddened or inflamed as they heal and can be cleaned twice a day with hydrogen peroxide. * Take your pulse once a day. If it is less than 60 or greater than 110 beats per minute at rest, call your Driver Operator, DR. Bryant * Take your temperature by mouth once a day for 2 weeks. Call your surgeon of it is above 101 degrees. * Call the surgeon if you notice drainage or redness at your incision lines. * Weigh yourself each day for 2 weeks. Call your doctor if you notice and increase in your weight of 3 pounds or more in a day or increasing shortness of breath. * If you experience chest pain, shortness of breath, dizziness or extreme tiredness, stop and rest. Please notify your doctor if you experience any of these symptoms. * If you experience any of these symptoms and they are not relieved with rest, please call 911. Referrals: Troy Gracia Jr, MD [Primary Care Provider] - 10/31/16 10:00 am Ashley Carmona CNP [Advanced Practice Nurse] - 11/14/16 2:00 pm Carmine Bryant MD [Partnered Physician] - 11/21/16 1:00 pm Prescriptions: OxyCODONE/APAP 5/325 [Percocet 5/325 MG] 1 each PO Q4HR PRN #30 tablet PRN Reason: Severe Pain Metoprolol [Lopressor] 25 mg PO BID #60 tablet
== END 2016-10-27 11:40 | disposition home or self-care (01) | DRG 234 ==
LOC: 2NNU 04:39 → EMEROO 04:39 → 2NNU 07:10 → SUATTDRO 10-16 16:39 → ICNU 10-21 09:02 → 2NNU 10-24 17:11
PROVIDERS: ADMIT Internal Medicine; ATTEND Internal Medicine